=== PATIENT | female | born 1965 | race Caucasian/White ===

== ENCOUNTER → 2017-12-04 09:50 | Outpatient (REF) | payer OTHER, SELFPAY ==
[2017-12-04 14:06] LABS: Basophils % 0.6 % (0.1-2.0); Eosinophils # 0.1 K/mm3 (0.0-0.4); Eosinophils % 1.3 % (0.1-12.0); Hemoglobin 13.6 g/dL (12.2-16.2); Lymphocytes # 1.8 K/mm3 (0.7-4.5); Lymphocytes % 31.6 K/mm3 (10-50); Mean Corpuscular HGB Conc 33.1 g/dL (31.8-35.4); Mean Corpuscular Hemoglobin 28.2 pg (27.0-31.2); Mean Corpuscular Volume 85.2 fl (81-99); Mean Platelet Volume 7.6 fl (7.4-10.4); Monocytes # 0.4 K/mm3 (0.1-1.0); Monocytes % 6.7 % (1.7-9.3); Neutrophils # 3.5 K/mm3 (1.8-7.8); Neutrophils % 59.9 % (37.0-80.0); Platelet Count 294 K/mm3 (142-424); Red Blood Count 4.81 M/mm3 (4.20-5.40); Red Cell Distribution Width 12.4 % (11.5-17.5); White Blood Count 5.8 K/mm3 (4.8-10.8)
[2017-12-04 14:09] LABS: Alanine Aminotransferase 29 U/L (12-78); Albumin Level 3.7 gm/dL (3.4-5.0); Albumin/Globulin Ratio 0.9 (1.1-1.8); Alkaline Phosphatase 147 U/L (46-116); Anion Gap 9.8 mEq/L (5-15); Aspartate Amino Transferase 16 U/L (15-37); Bilirubin,Total 0.2 mg/dL (0.2-1.0); Blood Urea Nitrogen 14 mg/dL (7-18); Calcium 8.6 mg/dL (8.5-10.1); Carbon Dioxide 33 mmol/L (21.0-32.0); Chloride 106 mmol/L (98-107); Chol/HDL Ratio 4.6 (1-3.5); Cholesterol 198 mg/dL (140-200); Creatinine,Serum 0.68 mg/dL (0.55-1.02); Estimated Glomerular Filt Rate 91 ml/min (>60); GFR (African American) 110 ML/MIN (>60); Glucose 110 mg/dL (74-106); HDL Cholesterol 43 mg/dL (29-89); LDL Cholesterol 123 mg/dL (0-130); Magnesium 1.9 mg/dL (1.4-2.2); Potassium 4.8 mmoL/L (3.5-5.1); Sodium 144 mmol/L (136-145); T4 (Thyroxine) 7.3 ug/dl (4.7-13.3); Thyroid Stimulating Hormone 1.08 uIU/ml (0.358-3.740); Total Protein,Serum 7.7 gm/dL (6.4-8.2); Triglycerides 158 mg/dL (30-200); VLDL Cholesterol 32 mg/dL (0-40)
[2017-12-04 14:23] LABS: C-Reactive Protein < 0.2 mg/L (0.0-0.9)
[2017-12-04 16:25] LABS: Erythrocyte Sedimentation Rate 25 mm/hr (0-30)
[2017-12-06 12:08] LABS: Vitamin D 25 Hydroxy 27.5 ng/mL (30.0-100.0)
== END ==
LOC: LAB 09:50
PROVIDERS: Visit Provider Physician Assistant
DX: I10 Essential (primary) hypertension (principal); R25.2 Cramp and spasm
CPT/HCPCS: 80053; 80061; 82652; 83735; 84436; 84443; 85025; 85651; 86140

== ENCOUNTER → 2019-03-30 17:31 | Outpatient (CLI) | payer OTHER, SELFPAY ==
[2019-03-30 18:15] LABS: Basophils % 0.2 % (0.1-2.0); Eosinophils % 0.4 % (0.1-12.0); Hematocrit 37.3 % (37.0-47.0); Hemoglobin 12.3 g/dL (12.2-16.2); Lymphocytes % 34.2 % (10-50); Mean Corpuscular HGB Conc 32.9 g/dL (31.8-35.4); Mean Corpuscular Hemoglobin 27.2 pg (27.0-31.2); Mean Corpuscular Volume 82.7 fl (81-99); Mean Platelet Volume 7.2 fl (7.4-10.4); Monocytes # 0.3 K/mm3 (0.1-1.0); Monocytes % 5.1 % (1.7-9.3); Neutrophils # 3.5 K/mm3 (1.8-7.8); Neutrophils % 60.1 % (37.0-80.0); Platelet Count 274 K/mm3 (142-424); Red Blood Count 4.52 M/mm3 (4.20-5.40); Red Cell Distribution Width 12.5 % (11.5-17.5); White Blood Count 5.8 K/mm3 (4.8-10.8)
[2019-03-30 18:32] LABS: Erythrocyte Sedimentation Rate 43 mm/hr (0-30)
[2019-03-30 19:54] LABS: Alanine Aminotransferase 33 U/L (12-78); Albumin Level 3.6 gm/dL (3.4-5.0); Alkaline Phosphatase 147 U/L (46-116); Anion Gap 15.3 mEq/L (5-15); Aspartate Amino Transferase 45 U/L (15-37); Bilirubin,Total 0.3 mg/dL (0.2-1.0); Blood Urea Nitrogen 8 mg/dL (7-18); Calcium 8.6 mg/dL (8.5-10.1); Carbon Dioxide 28 mmol/L (21.0-32.0); Chloride 106 mmol/L (98-107); Creatinine,Serum 0.77 mg/dL (0.55-1.02); Estimated Glomerular Filt Rate 79 ml/min (>60); GFR (African American) 95 ML/MIN (>60); Globulin 3.7 gm/dl (1.3-3.2); Glucose 90 mg/dL (74-106); Potassium 4.3 mmoL/L (3.5-5.1); Sodium 145 mmol/L (136-145); Total Protein,Serum 7.3 gm/dL (6.4-8.2)
[2019-03-30 21:34] LABS: C-Reactive Protein < 0.2 mg/L (0.0-0.9)
== END ==
PROVIDERS: Visit Provider Emergency Medicine
DX: I10 Essential (primary) hypertension (principal)
CPT/HCPCS: 80053; 85025; 85651; 86140

== ENCOUNTER → 2019-06-30 13:43 | Outpatient (CLI) | payer OTHER, SELFPAY ==
[2019-06-30 14:33] LABS: Basophils % 0.2 % (0.1-2.0); Eosinophils # 0.1 K/mm3 (0.0-0.4); Eosinophils % 0.7 % (0.1-12.0); Hematocrit 37.9 % (37.0-47.0); Hemoglobin 12.2 g/dL (12.2-16.2); Lymphocytes # 1.8 K/mm3 (0.7-4.5); Lymphocytes % 20.5 % (10-50); Mean Corpuscular HGB Conc 32.1 g/dL (31.8-35.4); Mean Corpuscular Hemoglobin 28.1 pg (27.0-31.2); Mean Corpuscular Volume 87.8 fl (81-99); Mean Platelet Volume 7.1 fl (7.4-10.4); Monocytes # 0.5 K/mm3 (0.1-1.0); Monocytes % 5.6 % (1.7-9.3); Neutrophils # 6.4 K/mm3 (1.8-7.8); Platelet Count 278 K/mm3 (142-424); Red Blood Count 4.32 M/mm3 (4.20-5.40); Red Cell Distribution Width 12.5 % (11.5-17.5); White Blood Count 8.7 K/mm3 (4.8-10.8)
[2019-06-30 16:22] LABS: Alanine Aminotransferase 34 U/L (12-78); Albumin Level 3.5 gm/dL (3.4-5.0); Albumin/Globulin Ratio 0.9 (1.1-1.8); Alkaline Phosphatase 131 U/L (46-116); Anion Gap 10.1 mEq/L (5-15); Aspartate Amino Transferase 55 U/L (15-37); Bilirubin,Total 0.4 mg/dL (0.2-1.0); Blood Urea Nitrogen 8 mg/dL (7-18); Calcium 8.6 mg/dL (8.5-10.1); Carbon Dioxide 34 mmol/L (21.0-32.0); Chloride 103 mmol/L (98-107); Creatinine,Serum 0.81 mg/dL (0.55-1.02); Estimated Glomerular Filt Rate 74 ml/min (>60); GFR (African American) 89 ML/MIN (>60); Globulin 3.8 gm/dl (1.3-3.2); Glucose 89 mg/dL (74-106); Potassium 4.1 mmoL/L (3.5-5.1); Sodium 143 mmol/L (136-145); Total Protein,Serum 7.3 gm/dL (6.4-8.2)
== END ==
PROVIDERS: Visit Provider Emergency Medicine
DX: I10 Essential (primary) hypertension (principal); N63.0 Unspecified lump in unspecified breast
CPT/HCPCS: 80053; 85025

== ENCOUNTER → 2019-07-02 13:41 | Outpatient (CLI) | payer OTHER, SELFPAY ==
--- NOTE | 2019-07-02 13:43 | US_ITS ---
PROCEDURE: MM DIG MAMM BI DX W/CAD CLINICAL INDICATION: lump in right Palpable nodule or in the right breast. COMPARISON: US BREAST RT COMPLETE from 07/02/2019 TECHNIQUE: Standard CC and MLO images were obtained. R2 CAD reviewed. FINDINGS: There are no previous exams available for comparison. There is average fibroglandular tissue. There is a 2.3 x 1.9 cm well-circumscribed nodule in the upper outer aspect of the right breast. This corresponds to the palpable nodule. There are small nodes in the axilla on both sides. There is a 11 mm nodule just superior to the A4 mention palpable nodule which may correspond to a lymph node. A well-circumscribed nodular density is present in the inferior aspect of right breast in the inframammary fold region the. In addition, there is a 7 mm opacity in the inferior aspect of the right breast as seen on the MLO view. This is in the medial aspect of the right breast. There is an area of questionable architectural distortion in the central aspect of the right breast for which spot compression view is needed. On the left there is a benign-appearing nodule in the upper outer left breast at 4 mm. There are 2 asymmetric densities in the central aspect of the right left breast on the CC view. Suggest spot compression views of this region. Right breast ultrasound: At 10 o'clock there is a hypoechoic nodule measuring 1.9 x 1.4 cm corresponding to the palpable abnormality and the mammographic abnormality. This is not simply cystic having low level internal echoes with some nodular thickening anteriorly and some internal blood flow. This may represent a fibroadenoma however neoplasm is not excluded and biopsy is suggested. At 6 o'clock there is a 7 mm cyst which may correspond to the mammographic nodule near the nipple. A 4 mm cyst is present 10 o'clock. Hypoechoic nodule is present lateral to the palpable abnormality measuring 9 mm and may correspond to a lymph node IMPRESSION: Palpable nodule in the deep upper outer aspect of the right breast does not represent a simple cyst. This could represent a fibroadenoma however, neoplasm is also considered and ultrasound guided mammotome biopsy is suggested. Also recommend spot compression view of the medial nodule in the right breast, and of the possible architectural distortion centrally and the asymmetric densities in the central left breast. This can be performed at the time of biopsy BI-RAD Category: 4 Suspicious Abnormality - Biopsy Considered FOLLOW-UP: BIO Biopsy Recommended (A letter has been sent to the patient regarding results of the study.) Dictated by: Matthew Guillory MD 07/03/2019 11:48 Electronically signed by Matthew Guillory MD in [place] 07/03/2019 11:48
== END ==
PROVIDERS: PCP Emergency Medicine; Visit Provider Emergency Medicine
DX: N63.11 Unspecified lump in the right breast, upper outer quadrant (principal)
CPT/HCPCS: 76641; 77066

== ENCOUNTER → 2019-07-15 12:56 | Outpatient (CLI) | payer OTHER, SELFPAY ==
--- NOTE | 2019-07-15 | MM_ITS ---
PROCEDURE: US MAMMOTOME BX RT CLINICAL INDICATION: abnormal mamm Right breast nodule COMPARISON: MM DIG MAMM BI DX W/CAD from 07/02/2019 US BREAST RT COMPLETE from 07/02/2019 REPEAT VIEW MM from 07/15/2019 MM CLIP PLACEMENT RT from 07/15/2019 FINDINGS: Technique: Following obtaining informed consent under aseptic conditions and local anesthesia with 1 percent buffered lidocaine and deeper anesthesia with lidocaine mixed with epinephrine, 9 gauge mammotome needle was inserted under ultrasound guidance and directed along the posterior aspect of the suspicious nodule. Multiple mammotome biopsies were obtained. A non ferromagnetic clip was then placed. The patient tolerated the procedure well without evidence of immediate complication. 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 Post biopsy mammogram for clip placement shows post biopsy changes in the region of the upper outer quadrant nodule with the clip in satisfactory position. IMPRESSION: Ultrasound-guided mammotome biopsy of the right breast demonstrates invasive moderately differentiated ductal carcinoma in what appears to represent lymphoid tissue. It is concerning that this represents a lymph node with involvement of moderately differentiated ductal carcinoma. There are at least 2 other and possibly more prominent nodular densities in the right axillary region which appear to represent lymph nodes. These were demonstrated on the previous ultrasound. Examination of the remaining breast does not demonstrate any other suspicious abnormalities. Would suggest MRI of the right breast without and with contrast to look for an occult primary neoplasm within the breast which may metastasized to the lymph nodes. There were some areas of asymmetric density in the right breast but were felt to compress out on the focal spot compression views. Dictated by: Matthew Guillory MD 07/16/2019 06:03 Electronically signed by Matthew Guillory MD in [place] 07/31/2019 09:56
--- NOTE | 2019-07-15 12:59 | MM_ITS ---
PROCEDURE: REPEAT VIEW MM CLINICAL INDICATION: Additional views of questionable architectural distortion right breast and 2 asymmetric densities left breast COMPARISON: MM DIG MAMM BI DX W/CAD from 07/02/2019 TECHNIQUE: Standard CC and MLO images were obtained. R2 CAD reviewed. FINDINGS: The questioned area of architectural distortion central portion right breast is less worrisome on the additional spot compression views and appears to be secondary to heterogenic fibroglandular parenchymal densities. There is a small benign-appearing nodular density seen just deep to the nipple right breast which has smooth well-defined borders and likely is a small cyst or fibroadenoma. There are 2 tiny benign-appearing nodular densities central portion left breast with no suspicious features. These findings can be re-evaluated on six-month follow-up mammogram which should be considered to evaluate the postoperative site right breast IMPRESSION: No additional suspicious abnormality seen in either breast on the problem solving views BI-RAD Category: 3 Probably Benign Finding Short Term Follow-up FOLLOW-UP: 6M 6Month Follow-up (A letter has been sent to the patient regarding results of the study.) Dictated by: Dr. Joaquín Osman MD 07/21/2019 12:[address] Joaquín Osman MD in [place] 07/21/2019 12:39
== END ==
PROVIDERS: PCP Emergency Medicine; Visit Provider Emergency Medicine
DX: C50.411 Malignant neoplasm of upper-outer quadrant of right female breast (principal); Z17.0 Estrogen receptor positive status [ER+]
CPT/HCPCS: 19083; 77065; 77066; 88305; 88360; C2618

== ENCOUNTER 2022-02-22 18:07 | Emergency (ER) | payer OTHER, SELFPAY ==
--- NOTE | 2022-02-22 18:17 | XR_ITS ---
PROCEDURE INFORMATION: Exam: XR Chest Exam date and time: 02/22/2022 6:26 PM Age: 56 years old Clinical indication: Chest wall pain; Patient HX: Right sided chest pain, non-smoker, no chest surgeries. TECHNIQUE: Imaging protocol: XR of the chest. Views: 1 view. COMPARISON: No relevant prior studies available. FINDINGS: Lungs: Bilateral apical scarring. Mild bibasilar opacities are favored to be atelectasis. Pleural spaces: Unremarkable. No pleural effusion. No pneumothorax. Heart/Mediastinum: Unremarkable. No cardiomegaly. Bones/joints: Unremarkable. Soft tissues: Right axillary surgical clips. IMPRESSION: Mild bibasilar opacities are favored to be atelectasis. Aspiration or infection is possible in the appropriate clinical setting.
[2022-02-22 18:18] VITALS: BP 197/114; PULSE 94; RESP 17; TEMP 36.8; O2SAT 96; BMI 23.4
--- NOTE | 2022-02-22 18:23 | ECG_ITS ---
APPROVED REPORT Exam: Resting ECG HR:87 bpm ECG Measurements Heart Rate 87 AXES RI 147 P 70 QRSd 90 QRS -38 QT 364 T 60 QTc 408 Conclusion SINUS RHYTHM LEFT AXIS DEVIATION [QRS AXIS < -30] ABNORMAL ECG UNCONFIRMED REPORT Electronically signed by : Taiwo Yanes MD 02/24/2022 09:06:35
[2022-02-22 19:05] LABS: Activated Partial Thrombo Time 24.6 seconds (22.8-30.6); Alanine Aminotransferase 127 U/L (12-78); Albumin Level 4.2 g/dl (3.5-5.0); Albumin/Globulin Ratio 1.4 (1.1-1.8); Alkaline Phosphatase 109 U/L (38-126); Anion Gap 8.3 mEq/L (5-15); Aspartate Amino Transferase 74 U/L (14-36); Bilirubin,Total 0.4 mg/dl (0.2-1.3); Blood Urea Nitrogen 8 mg/dl (7-17); Calcium 8.9 mg/dl (8.4-10.2); Carbon Dioxide 38 mmol/L (22.0-30.0); Chloride 99 mmol/L (98-107); Creatinine Clearance Estimated 107 mL/min (50-200); Estimated Glomerular Filt Rate 104 ml/min (>60); GFR (African American) 126 ML/MIN (>60); Globulin 3.1 g/dL (1.3-3.2); Glucose 100 mg/dl (74-100); Potassium 3.3 mmoL/L (3.5-5.1); Prothrombin Time 10.2 seconds (10.1-12.5); Sodium 142 mmol/L (136-145); Total Protein,Serum 7.3 g/dl (6.3-8.2)
[2022-02-22 19:17] LABS: NT Pro Brain Natriuretic Pep. 75.9 pg/mL (0-125)
[2022-02-22 19:19] LABS: Troponin I < 0.01 ng/ml (0.00-0.034)
--- NOTE | 2022-02-22 19:27 | CT_ITS ---
PROCEDURE INFORMATION: Exam: CT Abdomen And Pelvis With Contrast Exam date and time: 02/22/2022 7:53 PM Age: 56 years old Clinical indication: Abdominal pain; Localized; Right upper quadrant (ruq) TECHNIQUE: Imaging protocol: Computed tomography of the abdomen and pelvis with contrast. Radiation optimization: All CT scans at this facility use at least one of these dose optimization techniques: automated exposure control; mA and/or kV adjustment per patient size (includes targeted exams where dose is matched to clinical indication); or iterative reconstruction. Contrast material: ISOVUE; Contrast volume: 75 ml; Contrast route: IV; COMPARISON: RUQ US RUQ-(ABD LTD)1ORGAN/QUAD/FU 05/17/2016 7:59 AM FINDINGS: Liver: Normal. No mass. Gallbladder and bile ducts: Gallbladder is absent. Post cholecystectomy ectasia. Pancreas: Normal. No ductal dilation. Spleen: Normal. No splenomegaly. Adrenal glands: Normal. No mass. Kidneys and ureters: Normal. No hydronephrosis. Stomach and bowel: Moderate amount of stool throughout the colon. Appendix: Unremarkable appendix. Intraperitoneal space: Unremarkable. No free air. No significant fluid collection. Vasculature: Mild atherosclerotic changes of the arteries. Lymph nodes: Unremarkable. No enlarged lymph nodes. Urinary bladder: Unremarkable as visualized. Reproductive: Status post hysterectomy. Bones/joints: Unremarkable. No acute fracture. Soft tissues: Mild right abdominal wall scarring. Other findings: Please see separate report for CT chest. Tiny fat containing umbilical hernia. Scarring overlying the right femoral vessels. IMPRESSION: No acute findings.
--- NOTE | 2022-02-22 19:27 | CT_ITS ---
PROCEDURE INFORMATION: Exam: CTA Chest With Contrast Exam date and time: 02/22/2022 7:53 PM Age: 56 years old Clinical indication: Shortness of breath TECHNIQUE: Imaging protocol: Computed tomographic angiography of the chest with contrast. 3D rendering (Not supervised by radiologist): MIP and/or 3D reconstructed images were created by the technologist. Radiation optimization: All CT scans at this facility use at least one of these dose optimization techniques: automated exposure control; mA and/or kV adjustment per patient size (includes targeted exams where dose is matched to clinical indication); or iterative reconstruction. Contrast material: ISOVUE; Contrast volume: 75 ml; Contrast route: INTRAVENOUS (IV); COMPARISON: CR XR CHEST PORTABLE 02/22/2022 6:26 PM FINDINGS: Pulmonary arteries: No pulmonary emboli. Aorta: No aortic dissection. Lungs: Bilateral apical scarring. Mild scarring and atelectasis in the lower lungs. Pleural spaces: Unremarkable. No pneumothorax. No pleural effusion. Heart: Unremarkable. No cardiomegaly. No pericardial effusion. Lymph nodes: Unremarkable. No enlarged lymph nodes. Bones/joints: Left supraclavicular sebaceous cyst is noted. Soft tissues: Right axillary surgical clips. Other findings: Please see separate report for abdomen/pelvis. Stigmata of old granulomatous disease. IMPRESSION: 1. No aortic dissection. 2. No pulmonary emboli.
--- NOTE | 2022-02-22 19:33 | HMH.EDGENADL ---
ED Disposition Clinical Impression: RUQ pain Disposition: Home, Self-Care Condition on Discharge: Good Referrals: Kevin Alejandre MD [Primary Care Provider] - - Critical Care Critical Care Time: No Attestation: On 02/22/22, the high probability of a clinically significant, sudden or life threatening deterioration of the following system(s) required my full and direct attention, intervention and personal management. The time I documented below is in addition to time spent performing reported procedures but includes the following listed in this critical care notation. Medical Decision Making - Medical Records Medical records reviewed: Yes: I reviewed the patient's medical records. - Benjamin Inquiry Pt receiving controlled substance: No Benjamin was queried for this patient: No Vital Signs: 02/22/22 18:18 Temperature 98.2 F Temperature Source Oral Pulse Rate [Left Radial] 94 H Respiratory Rate 17 Blood Pressure [Right Arm] 197/114 H Blood Pressure Mean [Right Arm] 141 02 Sat by Pulse Oximetry 96 Oxygen Delivery Method Room Air - Lab Data Lab results reviewed: Yes: I reviewed the patient's lab results. Lab Results 02/22/22 18:42: WBC 4.4 L, RBC 4.09 L, Hgb 11.9 L, Hct 35.4 L, MCV 86.6, MCH 29.2, MCHC 33.7, RDW 13.7, Plt Count 282, MPV 6.8 L, Neut % (Auto) 58.8, Lymph % (Auto) 30.7, [place] % (Auto) 6.2, Eos % (Auto) 3.6, Baso % (Auto) 0.6, Neut # (Auto) 2.6, Lymph # (Auto) 1.4, [place] # (Auto) 0.3, Eos # (Auto) 0.2, Baso # (Auto) 0.0 02/22/22 18:42: Sodium 142, Potassium 3.3 L, Chloride 99, Carbon Dioxide 38 H, Anion Gap 8.3, BUN 8, Creatinine 0.60, Estimated Creat Clear 107, Estimated GFR 104, Est GFR ( Amer) 126, Glucose 100, Calcium 8.9, Total Bilirubin 0.4, AST 74 H, ALT 127 H, Alkaline Phosphatase 109, Troponin I < 0.01, NT-Pro-B Natriuret Pep 75.9, Total Protein 7.3, Albumin 4.2, Globulin 3.1, Albumin/Globulin Ratio 1.4 02/22/22 18:42: PT 10.2, INR 0.90, APTT 24.6 Result diagrams: 02/22/22 18:42 02/22/22 18:42 Orders (Tests/Meds): ED MEDICATIONS Discontinued Medications Generic Name Dose Route Start Last Admin Trade Name Cathryn PRN Reason Stop Dose Admin Iopamidol 75 ml 02/22/22 20:15 02/22/22 20:16 Iopamidol-370 (76%);100ml Bottle IV 02/22/22 20:16 75 ml ONCE ONE Administration Sodium Chloride 50 ml 02/22/22 20:15 02/22/22 20:17 0.9 % Sodium Chloride 50 Ml Vial IV 02/22/22 20:16 50 ml ONCE ONE Administration Sodium Chloride 10 ml 02/22/22 20:15 02/22/22 20:17 Sodium Chloride 0.9% 10ml Syr (Rad Only) IV 02/22/22 20:16 10 ml ONCE ONE Administration ORDERS Category Date Time Status Troponin I Q3H Lab 02/22/22 21:30 Ordered Troponin I Q3H Lab 02/23/22 00:30 Ordered Medical Decision Narrative: Patient is a 56-year-old female with past medical history of hypertension presenting to the ED with right upper quadrant abdominal pain and bilateral lower extremity edema. Patient is awake, alert, not in acute distress. Patient is medically stable, afebrile. Patient's physical exam is remarkable for tenderness to palpation of the right upper quadrant. Differential includes but not limited to hepatitis, steatosis, cirrhosis, cholecystitis, heart failure, lower extremity edema, pulmonary edema, pulmonary embolism. This a CBC, CMP, coags was performed. Patient's LFTs are elevated which could explain patient's pain. Patient continues to have pain and shortness of breath therefore CT PE, CT abdomen pelvis is performed. Patient's lab work is remarkable for mildly elevated LFTs. CT abdomen pelvis and negative for any PEs, intra-abdominal pathology. At this point patient is stable for discharge. Patient is to follow-up with her primary care physician tomorrow. Patient also has a cardiology follow-up already scheduled. General Adult HPI - General Chief complaint: PAIN Stated complaint: ABD PAIN FEET SWELLING Time Seen by Provider: 02/22/22 19:33 Mode
[2022-02-22 20:04] LABS: Basophils % 0.6 % (0.1-2.0); Eosinophils # 0.2 K/mm3 (0.0-0.4); Eosinophils % 3.6 % (0.1-12.0); Hematocrit 35.4 % (37.0-47.0); Hemoglobin 11.9 g/dL (12.2-16.2); Lymphocytes # 1.4 K/mm3 (0.7-4.5); Lymphocytes % 30.7 % (10-50); Mean Corpuscular HGB Conc 33.7 g/dL (31.8-35.4); Mean Corpuscular Hemoglobin 29.2 pg (27.0-31.2); Mean Corpuscular Volume 86.6 fl (81-99); Mean Platelet Volume 6.8 fl (7.4-10.4); Monocytes # 0.3 K/mm3 (0.1-1.0); Monocytes % 6.2 % (1.7-9.3); Neutrophils # 2.6 K/mm3 (1.8-7.8); Neutrophils % 58.8 % (37.0-80.0); Platelet Count 282 K/mm3 (142-424); Red Blood Count 4.09 M/mm3 (4.20-5.40); Red Cell Distribution Width 13.7 % (11.5-17.5); White Blood Count 4.4 K/mm3 (4.8-10.8)
[2022-02-22 21:28] VITALS: BP 142/70; PULSE 79; RESP 19; TEMP 36.8; O2SAT 98
== END 2022-02-22 21:30 | disposition home or self-care (01) ==
PROVIDERS: Emergency Provider Emergency Medicine; PCP Emergency Medicine
DX: R10.11 Right upper quadrant pain (principal); R07.89 Other chest pain; I10 Essential (primary) hypertension; Z88.1 Allergy status to other antibiotic agents; Z88.2 Allergy status to sulfonamides; Z79.899 Other long term (current) drug therapy
CPT/HCPCS: 71045; 71275; 74177; 80053; 83880; 84484; 85025; 85610; 85730; 93005; 99284; Q9967

== ENCOUNTER → 2022-02-26 06:52 | Outpatient (CLI) | payer OTHER, SELFPAY ==
--- NOTE | 2022-02-26 06:53 | CA_ITS ---
APPROVED REPORT Exam: Pharmacologic Technologist: Tiffani Rivers, Ht: 5 ft 5 in Wt: 141 lbs BSA: 1.71 m2 HR: 63 bpm BP: 130/89 mmHg Medical History Medications: Clonidine,,,,, Gabapentin,,,,, KloNOPIN,,,,, OxYCODONE,,,,, Tizanidine,,,,, Stress Test Details Test: LEXISCAN HR Resting HR: 68 bpm Max Heart Rate (APMHR): 165.476779 bpm Max HR Achieved: 105 bpm Target HR (85% APMHR): 140.024368 bpm % of APMHR: 63.64 Recovery HR: 83 bpm BP Resting BP: 130/89 mmHg Max BP: 145/92 mmHg Recovery BP: 145.0/92.0 mmHg ECG Resting ECG: NSR Clinical Reason for Termination: Completed Protocol Exercise duration: 04:01 min Highest Stage Achieved: Stress ECG Conclusion Symptoms: None Arrhythmias/Ectopy: None ST-T Changes: <1.5mm ST Segment changes Conclusion: Non-Diagnostic Electronically signed by : Paulo Clay MD 02/26/2022 15:09:26
--- NOTE | 2022-02-26 06:53 | NM_ITS ---
APPROVED REPORT Exam: Nuclear Stress Test Indication: Chest pain, SOB, HTN Patient Location: Outpatient Stress Tech: Tiffani Worthy NM Tech:Amaya Wilson, ARRT, RT (R)(N) Ht: 5 ft 5 in Wt: 140 lbs Bra Size: 38C HR: 63 bpm BP: 130/89 mmHg BSA: 1.70 m2 TID: 63 BMI: 23.2 History: Chest pain, SOB, HTN Procedure: Patient received a 0.4 mg of intravenous Lexiscan, resting heart rate 63 bpm, resting blood pressure 130/89 mmHg, with Lexiscan maximum heart rate achived was 102 bpm which is Less than 85 % of the maximum predicted heart rate and blood pressure was 132/85 mmHg. With Lexiscan, patient denied any complaint of chest pain. Electrocardiogram Resting electrocardiogram showed sinus rhythm, with Lexiscan there is less than 1.[address] segment depression noted from the baseline EKG. The EKG portion of the Lexiscan is nondiagnostic. Cardiac Stress and Resting SPECT Images: Cardiac Stress and Resting SPECT images were obtained using technetium 99m Myoview 29.4 mCi stress and 10.26 mCi at rest. Gated SPECT analysis of segmental wall motion and calculation of the ejection fraction also done. Prone images were also obtained. Cardiac stress and rest SPECT may show uniform myocardial activity without segmental perfusion abnormality, computer derived ejection fraction is 44% with no regional wall motion abnormality, right ventricle is normal size and contractility. Visually estimated ejection fraction is approximately 50%. Conclusion: 1. The EKG portion of the Lexiscan is nondiagnostic. 2. No scintigraphic evidence of reversible ischemia seen, computer derived ejection fraction is 44%, however visually estimated ejection fraction is 50% with no regional wall motion abnormality, right ventricle is normal size and contractility. 3. Likely normal Lexiscan Myoview study. Electronically signed by : Paulo Clay MD 02/26/2022 15:12:59
--- NOTE | 2022-02-26 06:53 | CA_ITS ---
APPROVED REPORT EXAM: Comprehensive 2D, Doppler, and color-flow Echocardiogram Hot Roll Inspector: Cassidy Hughes RVT Ht: 5 ft 5 in Wt: 141lbs BSA: 1.71 BP: 142/88 mmHg Indications: CP,HTN,EDEMA,FAMILY HX HD 2D Dimensions LVOT 2.17 cm (M/F) 1.5-2.5 LA Volume 26.90 mL LA Volume Index 15.82 mL/m2 (M/F) 16-34 M-Mode Dimensions RVDd 2.86 cm (0.9-2.6) LA Diam 3.73 cm (1.9-4.0) LVDd 4.50 cm (3.5-5.7) Ao Diam 2.89 cm (2.0-3.7) LVDs 2.86 cm (3.5-5.7) IVSd 0.96 cm (0.6-1.1) PWd 0.68 cm (0.6-1.1) EF (Teich) 66.30% FS 36.40% EDV (Teich) 92.40 mL TAPSE 2.09 (<1.7) ESV (Teich) 31.10 mL LV Diastology E Decel Time 220.00 (160-240 msec) E/A Ratio 1.2 MED E' 8.80 (< 7 cm/sec) E'/MED E' Ratio 9.17 (>14) LAT E' 11.00 (<10 cm/sec) E/LAT E' Ratio 7.34 (>14) Aortic Valve AO Peak GR. 3.10 mmHg Mitral Valve MV E Max Luis. 81.00 (40-130 cm/s) MV A Velocity 67.00 (40-130 cm/s) E/A Ratio 1.20 MV Decel. Time 220.00 (160-240 ms) MV PHT 64.00 ms Pulmonary Valve PV Peak Velocity 64.00 (50-150 cm/s) Tricuspid Valve TR P. Velocity 252.00 cm/s RAP Estimate 10.00 mmHg RVSP 35.40 mmHg Left Ventricle Left atrium is mildly enlarged, left ventricle is normal size, mild concentric left ventricular hypertrophy, estimated ejection fraction 55% with no regional wall motion abnormality, diastolic parameters are inconclusive. Right Ventricle Right atrium and right ventricle mildly enlarged with normal contractility. Aortic Valve Aortic valve is minimally thickened and fibrosed there is no aortic stenosis or aortic insufficiency. Mitral Valve Mitral valve grossly normal, there is trace mitral regurgitation. Tricuspid Valve Tricuspid valve grossly normal, there is trace tricuspid regurgitation, calculated right ventricular systolic pressure 35 mmHg. Pulmonic Valve Pulmonic valve is grossly normal. Great Vessels Aortic root is normal size. Inferior vena cava is mildly dilated without significant inspiratory collapse. Pericardium No significant pericardial effusion noted. Conclusion 1. Mild biatrial normal, normal left ventricular size, estimated ejection fraction 55% with no regional wall motion abnormality, diastolic parameters are inconclusive. 2. Mildly enlarged right ventricle with normal contractility. 3. Trace mitral and tricuspid regurgitation, calculated right ventricular systolic pressure 35 mm meters of mercury. 4. No significant pericardial effusion. 5. Inferior vena cava is mildly dilated without significant inspiratory collapse. Electronically signed by : Paulo Clay MD 02/26/2022 10:10:37
--- NOTE | 2022-02-26 09:09 | HMH.ITSHM ---
Current Home Medications as stated by this patient Maureen Burk or nutrition representative. []TIZANIDINE OXYCODONE GABAPENTIN CLONIDINE CLONAZEPAM
== END ==
PROVIDERS: PCP Emergency Medicine; Visit Provider Nurse Practitioner
DX: R06.00 Dyspnea, unspecified (principal); R07.89 Other chest pain; I10 Essential (primary) hypertension
CPT/HCPCS: 78452; 93017; 93306; A9502; J2785

== ENCOUNTER → 2022-02-28 12:27 | Outpatient (CLI) | payer OTHER, SELFPAY ==
--- NOTE | 2022-02-28 12:33 | XR_ITS ---
FINAL REPORT CLINICAL HISTORY: rib pain-- no known inj FINDINGS: A single view of the chest with 3 views of the ribs were obtained. There is no acute cardiopulmonary process. No pneumothorax is identified. There are postoperative changes in the right lateral chest wall. There is a right 9th distal rib fracture. There is a possible nondisplaced fracture of the distal right 10th rib. IMPRESSION: Right 9th distal rib fracture. Possible nondisplaced right 10th distal rib fracture. Reviewed, Interpreted and Dictated by Nicola Lopez III, MD Transcribed by Latisha Ford Authenticated by Nicola Lopez III, MD on 02/28/2022 02:17:20 PM [facility]
== END ==
PROVIDERS: PCP Emergency Medicine; Visit Provider Emergency Medicine
DX: R07.81 Pleurodynia (principal)
CPT/HCPCS: 71100

== ENCOUNTER → 2022-04-17 14:24 | Outpatient (CLI) | payer OTHER, SELFPAY ==
[2022-04-17 15:00] LABS: Benzodiazepines Screen,Urine Negative ng/ml (<200)
[2022-04-17 15:01] LABS: Amphetamine/Metha Screen,Urine Negative ng/ml (<1000)
[2022-04-17 15:02] LABS: Barbiturates Screen,Urine Negative ng/ml (<200); Cannabinoid Screen,Urine Negative ng/ml (<50)
[2022-04-17 15:03] LABS: Cocaine Screen,Urine Negative ng/ml (<300)
[2022-04-17 15:04] LABS: Methadone Screen,Urine Negative ng/ml (<300); Opiate Screen,Urine Positive ng/ml (<300)
[2022-04-17 15:05] LABS: Phencyclidine Screen,Urine Negative ng/ml (<25)
== END ==
PROVIDERS: PCP Emergency Medicine; Visit Provider Emergency Medicine
DX: Z79.899 Other long term (current) drug therapy (principal)
CPT/HCPCS: 80305

== ENCOUNTER → 2022-05-16 06:24 | Outpatient (CLI) | payer OTHER, SELFPAY ==
[2022-05-15 19:52] LABS: Amphetamine/Metha Screen,Urine Negative ng/ml (<1000)
[2022-05-15 19:53] LABS: Barbiturates Screen,Urine Negative ng/ml (<200)
[2022-05-15 19:54] LABS: Benzodiazepines Screen,Urine Positive ng/ml (<200); Cannabinoid Screen,Urine Negative ng/ml (<50)
[2022-05-15 19:55] LABS: Cocaine Screen,Urine Negative ng/ml (<300); Methadone Screen,Urine Negative ng/ml (<300)
[2022-05-15 19:56] LABS: Opiate Screen,Urine Positive ng/ml (<300)
[2022-05-15 19:57] LABS: Phencyclidine Screen,Urine Negative ng/ml (<25)
== END ==
PROVIDERS: PCP Emergency Medicine; Visit Provider Emergency Medicine
DX: Z79.899 Other long term (current) drug therapy (principal)
CPT/HCPCS: 80305

== ENCOUNTER 2022-05-26 12:46 | Inpatient (IN) | payer OTHER, SELFPAY ==
[2022-05-26] VITALS (14 sets, daily range): BP systolic 104–142; BP diastolic 57–101; PULSE 50–65; RESP 12–22; TEMP 36.7–36.8; O2SAT 98–100; BMI 22.4; BMI 21.3
--- NOTE | 2022-05-26 13:14 | XR_ITS ---
PROCEDURE INFORMATION: Exam: XR Chest Exam date and time: 05/26/2022 1:33 PM Age: 56 years old Clinical indication: Other: Dizziness TECHNIQUE: Imaging protocol: Radiologic exam of the chest. Views: 1 view. COMPARISON: CR XR CHEST PORTABLE 02/22/2022 6:26 PM FINDINGS: Lungs: Focal opacification in the left mid lung which could represent mass or masslike infiltrate in further nonemergent evaluation with CT of the chest is recommended. Pleural spaces: Unremarkable. No pleural effusion. No pneumothorax. Heart/Mediastinum: Unremarkable. No cardiomegaly. Bones/joints: Unremarkable. Soft tissues: Right axillary clips. IMPRESSION: Focal opacification in the left mid lung which could represent mass or masslike infiltrate in further nonemergent evaluation with CT of the chest is recommended.
--- NOTE | 2022-05-26 13:16 | HMH.EDGENADL ---
ED Disposition Clinical Impression: Cavitary pneumonia, Sinus bradycardia, Hypokalemia Mastoiditis Qualifiers: Laterality: bilateral Qualified Code(s): H70.93 - Unspecified mastoiditis, bilateral Otitis media Qualifiers: Otitis media type: suppurative Chronicity: acute Laterality: bilateral Recurrence: not specified as recurrent Spontaneous tympanic membrane rupture: with spontaneous rupture Qualified Code(s): H66.013 - Acute suppurative otitis media with spontaneous rupture of ear drum, bilateral Anemia Qualifiers: Anemia type: unspecified type Qualified Code(s): D64.9 - Anemia, unspecified Disposition: Admitted As Inpatient Condition on Discharge: Fair - Critical Care Critical Care Time: No Attestation: On 05/26/22, the high probability of a clinically significant, sudden or life threatening deterioration of the following system(s) required my full and direct attention, intervention and personal management. The time I documented below is in addition to time spent performing reported procedures but includes the following listed in this critical care notation. Medical Decision Making - Medical Records Medical records reviewed: Yes: I reviewed the patient's medical records. MR Comment: Reviewed most recent cardiology office visit note 02/28/2022. Narrative indicates that patient had been seen at [facility] for gastrointestinal symptoms a few weeks prior and had an elevated troponin and was sent to [facility] in [place]. No cardiac cath performed. Patient had a stress test and echocardiogram done here, which were negative, but due to symptoms of ongoing angina cardiac cath was planned. Reviewed results of Myoview stress test 02/26/2022, echocardiogram 02/26/2022, CTA of chest 02/22/2022. - Benjamin Inquiry Pt receiving controlled substance: No Vital Signs: 05/26/22 12:55 05/26/22 13:00 05/26/22 13:51 Temperature 98.1 F Temperature Source Oral Pulse Rate 50 L 51 L Pulse Rate [Left Radial] 51 L Respiratory Rate 18 12 Blood Pressure 112/63 117/69 Blood Pressure [Right Arm] 104/57 L Blood Pressure Mean 79 76 Blood Pressure Mean [Right Arm] 72 02 Sat by Pulse Oximetry 98 100 99 Oxygen Delivery Method Room Air Room Air 05/26/22 14:00 05/26/22 14:31 05/26/22 15:00 Temperature Temperature Source Pulse Rate 50 L 54 L 53 L Pulse Rate [Left Radial] Respiratory Rate 13 14 17 Blood Pressure 130/84 123/91 H 128/85 Blood Pressure [Right Arm] Blood Pressure Mean 96 109 102 Blood Pressure Mean [Right Arm] 02 Sat by Pulse Oximetry 100 100 100 Oxygen Delivery Method Room Air Room Air Room Air - Lab Data Lab Results 05/26/22 13:30: WBC 8.3, RBC 3.17 L, Hgb 9.0 L, Hct 27.9 L, MCV 87.8, MCH 28.5, MCHC 32.4, RDW 13.8, Plt Count 374, MPV 7.9, Neut % (Auto) 67.4, Lymph % (Auto) 21.9, Jack % (Auto) 6.5, Eos % (Auto) 3.5, Baso % (Auto) 0.7, Neut # (Auto) 5.6, Lymph # (Auto) 1.8, Jack # (Auto) 0.5, Eos # (Auto) 0.3, Baso # (Auto) 0.1 05/26/22 13:30: Sodium 142, Potassium 2.8 L*, Chloride 106, Carbon Dioxide 31 H, Anion Gap 7.8, BUN 19 H, Creatinine 0.80, Estimated Creat Clear 79, Estimated GFR 74, Est GFR ( Amer) 90, Glucose 105 H, Calcium 8.5, Total Bilirubin < 0.1 L, AST 16, ALT 11 L, Alkaline Phosphatase 112, Troponin I < 0.01, Total Protein 6.9, Albumin 3.3 L, Globulin 3.6 H, Albumin/Globulin Ratio 0.9 L 05/26/22 13:30: NT-Pro-B Natriuret Pep 321 H 05/26/22 14:05: Stool Occult Blood Negative Result diagrams: 05/26/22 13:30 05/26/22 13:30 Orders (Tests/Meds): ED MEDICATIONS Generic Name Dose Route Start Last Admin Trade Name Freq PRN Reason Stop Dose Admin Ceftriaxone Sodium 1 gm/ 50 mls @ 100 mls/hr 05/26/22 15:45 Sodium Chloride IV 06/09/22 15:44 Q24H DANIELLE Azithromycin 500 mg/ Sodium 250 mls @ 250 mls/hr 05/26/22 15:45 Chloride IV 06/09/22 15:44 Q24H DANIELLE Clindamycin Phosphate 600 mg/ 104 mls @ 100 mls/hr 05/26/22 15:45 Sodiu
--- NOTE | 2022-05-26 13:21 | CT_ITS ---
PROCEDURE INFORMATION: Exam: CT Head Without Contrast Exam date and time: 05/26/2022 1:34 PM Age: 56 years old Clinical indication: Injury or trauma; Fall; Blunt trauma (contusions or hematomas); Additional info: Fell, hit head, headaches TECHNIQUE: Imaging protocol: Computed tomography of the head without contrast. Radiation optimization: All CT scans at this facility use at least one of these dose optimization techniques: automated exposure control; mA and/or kV adjustment per patient size (includes targeted exams where dose is matched to clinical indication); or iterative reconstruction. COMPARISON: No relevant prior studies available. FINDINGS: Brain: Normal. No hemorrhage. Unremarkable white matter. No mass effect. Cerebral ventricles: No ventriculomegaly. Paranasal sinuses: Mild mucoperiosteal thickening of the paranasal sinuses. Mastoid air cells: Opacification of the mastoid air cells with fluid in the middle ears suggestive of otomastoiditis. Bones/joints: Unremarkable. No acute fracture. Soft tissues: Unremarkable. IMPRESSION: Opacification of the mastoid air cells with fluid in the middle ears suggestive of otomastoiditis but no evidence of acute intracranial pathology.
--- NOTE | 2022-05-26 13:24 | ECG_ITS ---
APPROVED REPORT Exam: Resting ECG HR:49 bpm ECG Measurements Heart Rate 49 AXES IL 155 P 71 QRSd 97 QRS 32 QT 438 T 62 QTc 408 Conclusion SINUS BRADYCARDIA BORDERLINE ECG UNCONFIRMED REPORT Electronically signed by : Taiwo Yanes MD 05/27/2022 09:10:15
--- NOTE | 2022-05-26 13:33 | PC.NURSE ---
RAD in room for XR
--- NOTE | 2022-05-26 13:35 | PC.NURSE ---
pt to ct at this time
[2022-05-26 13:36] LABS: Basophils # 0.1 K/mm3 (0-0.2); Basophils % 0.7 % (0.1-2.0); Eosinophils # 0.3 K/mm3 (0.0-0.4); Eosinophils % 3.5 % (0.1-12.0); Hematocrit 27.9 % (37.0-47.0); Lymphocytes # 1.8 K/mm3 (0.7-4.5); Lymphocytes % 21.9 % (10-50); Mean Corpuscular HGB Conc 32.4 g/dL (31.8-35.4); Mean Corpuscular Hemoglobin 28.5 pg (27.0-31.2); Mean Corpuscular Volume 87.8 fl (81-99); Mean Platelet Volume 7.9 fl (7.4-10.4); Monocytes # 0.5 K/mm3 (0.1-1.0); Monocytes % 6.5 % (1.7-9.3); Neutrophils # 5.6 K/mm3 (1.8-7.8); Neutrophils % 67.4 % (37.0-80.0); Platelet Count 374 K/mm3 (142-424); Red Blood Count 3.17 M/mm3 (4.20-5.40); Red Cell Distribution Width 13.8 % (11.5-17.5); White Blood Count 8.3 K/mm3 (4.8-10.8)
--- NOTE | 2022-05-26 13:45 | PC.NURSE ---
pt back from CT
[2022-05-26 13:47] LABS: Alanine Aminotransferase 11 U/L (12-78); Albumin Level 3.3 g/dl (3.5-5.0); Albumin/Globulin Ratio 0.9 (1.1-1.8); Alkaline Phosphatase 112 U/L (38-126); Anion Gap 7.8 mEq/L (5-15); Aspartate Amino Transferase 16 U/L (14-36); Blood Urea Nitrogen 19 mg/dl (7-17); Calcium 8.5 mg/dl (8.4-10.2); Carbon Dioxide 31 mmol/L (22.0-30.0); Chloride 106 mmol/L (98-107); Creatinine Clearance Estimated 79 mL/min (50-200); Estimated Glomerular Filt Rate 74 ml/min (>60); GFR (African American) 90 ML/MIN (>60); Globulin 3.6 g/dL (1.3-3.2); Glucose 105 mg/dl (74-100); Sodium 142 mmol/L (136-145); Total Protein,Serum 6.9 g/dl (6.3-8.2)
[2022-05-26 13:49] LABS: Bilirubin,Total < 0.1 mg/dl (0.2-1.3); Potassium 2.8 mmoL/L (3.5-5.1)
--- NOTE | 2022-05-26 13:50 | PC.NURSE ---
Per MD request, pt was moved to cardiac room 6 d/t bradycardia
--- NOTE | 2022-05-26 13:50 | PC.NURSE ---
notified of critical potassium called by the lab
[2022-05-26 13:56] LABS: NT Pro Brain Natriuretic Pep. 321 pg/mL (0-125)
[2022-05-26 14:00] LABS: Troponin I < 0.01 ng/ml (0.00-0.034)
--- NOTE | 2022-05-26 14:11 | PC.NURSE ---
RN assisting ER MD for rectal exam for occult blood test
[2022-05-26 14:18] LABS: Occult Blood,Stool Negative (Negative)
--- NOTE | 2022-05-26 14:20 | CT_ITS ---
PROCEDURE INFORMATION: Exam: CT Chest Without Contrast; Diagnostic Exam date and time: 05/26/2022 2:31 PM Age: 56 years old Clinical indication: Mass, lump, or swelling in the chest; Additional info: Possible mass on cxr TECHNIQUE: Imaging protocol: Diagnostic computed tomography of the chest without contrast. Radiation optimization: All CT scans at this facility use at least one of these dose optimization techniques: automated exposure control; mA and/or kV adjustment per patient size (includes targeted exams where dose is matched to clinical indication); or iterative reconstruction. COMPARISON: 1. CT ANGIO CHEST PE PROTOCOL 02/22/2022 7:53 PM 2. Chest x-ray 05/26/2022. FINDINGS: Thyroid: Normal thyroid. Lungs: Fluffy airspace consolidations and nodular opacities in the left lower lobe, some of which demonstrate early cavitation. Patchy and fluffy airspace opacities/consolidations are also seen in the right upper lobe and right lower lobe, many of which demonstrate air bronchograms. 6 mm left upper lobe nodule (image 30 series 3) has enlarged as compared to the February 2022 examination. New 14 mm nodule in the left lower lobe (image 32 series 3). Stable 4 mm nodule right upper lobe (image 18 series 3). Remainder of the lungs clear. Pleural spaces: Unremarkable. No pneumothorax. No pleural effusion. Heart: Normal heart size. Punctate coronary artery calcifications. Normal pericardium. Mediastinal space: Calcified mediastinal granulomas, benign. Lymph nodes: No mediastinal, hilar, or axillary adenopathy. Vasculature: Aorta normal in course and caliber. Normal pulmonary arteries. Intraperitoneal space: No acute upper abdominal findings. Bones/joints: Old/healed right rib fractures. No acute skeletal abnormality or aggressive osseous lesion. Soft tissues: Surgical clips in the left axilla. No acute body wall soft tissue findings. Other findings: Airways patent. IMPRESSION: 1. New right upper lobe, right lower lobe, and left lower lobe nodular airspace opacifications with air bronchograms and few with early cavitation. Morphological characteristics and time frame to appearance favor infectious/inflammatory pneumonia/early cavitary pneumonia. Differential would also include underlying neoplasia. 2. Enlarging left upper lobe 6 mm nodule (previously 3 mm on February 2022). This is nonspecific, however interval enlargement is concerning for a possible neoplastic nodule. Close follow-up is advised.
--- NOTE | 2022-05-26 15:23 | PC.NURSE ---
Additional blood obtained per new MD orders. call placed to dr quigley for admission.
--- NOTE | 2022-05-26 15:24 | PC.NURSE ---
speaking to dr quigley
--- NOTE | 2022-05-26 15:39 | PC.NURSE ---
spoke to [facility]calls nurse about admission
[2022-05-26 16:01] LABS: Lactic Acid 1.1 mmol/L (0.7-2.1)
[2022-05-26 16:10] LABS: Coronavirus 19, PCR Not Detected (NotDetected); Influenza A, PCR Not Detected (NotDetected); Influenza B, PCR Not Detected (NotDetected)
--- NOTE | 2022-05-26 18:20 | PC.NURSE ---
pt has been admitted ot the second floor. She is extremely hard of hearing. reports bloody drainage from ears. i did not see any upon exam. She is alert and oriented. micheal to ambulate independently. repors increased soa with exertion.
[2022-05-27] VITALS (9 sets, daily range): BP systolic 83–158; BP diastolic 42–93; PULSE 60–87; RESP 14–20; TEMP 36.8–37.9; O2SAT 98–100; BMI 22.4
--- NOTE | 2022-05-27 05:38 | PC.NURSE ---
Pt alert and oriented x 4. Pt has c/o of back pain this shift. Medicated per MAR with adequate relief verbalized by pt. Pt still c/o of fullness in bilateral ears. Lung sounds decreased bilaterally. IV infusing per order. Monitoring pt via tele. Pt is on RA, maintaining O2 sat > 95%. PT ambulating independently to bathroom. No other complaints or needs at this time. Call light in reach.
[2022-05-27 07:34] LABS: Basophils % 0.4 % (0.1-2.0); Eosinophils # 0.3 K/mm3 (0.0-0.4); Eosinophils % 3.6 % (0.1-12.0); Hematocrit 30.8 % (37.0-47.0); Lymphocytes # 1.3 K/mm3 (0.7-4.5); Lymphocytes % 17.8 % (10-50); Mean Corpuscular HGB Conc 33.3 g/dL (31.8-35.4); Mean Corpuscular Hemoglobin 28.1 pg (27.0-31.2); Mean Corpuscular Volume 84.2 fl (81-99); Mean Platelet Volume 8.1 fl (7.4-10.4); Monocytes # 0.5 K/mm3 (0.1-1.0); Monocytes % 6.7 % (1.7-9.3); Neutrophils # 5.1 K/mm3 (1.8-7.8); Neutrophils % 71.6 % (37.0-80.0); Platelet Count 427 K/mm3 (142-424); Red Blood Count 3.66 M/mm3 (4.20-5.40); Red Cell Distribution Width 13.6 % (11.5-17.5); White Blood Count 7.1 K/mm3 (4.8-10.8)
[2022-05-27 07:35] LABS: Hemoglobin 10.2 g/dL (12.2-16.2)
[2022-05-27 07:37] LABS: Anion Gap 6.4 mEq/L (5-15); Blood Urea Nitrogen 13 mg/dl (7-17); Calcium 8.1 mg/dl (8.4-10.2); Carbon Dioxide 31 mmol/L (22.0-30.0); Chloride 108 mmol/L (98-107); Creatinine Clearance Estimated 93 mL/min (50-200); Estimated Glomerular Filt Rate 87 ml/min (>60); GFR (African American) 105 ML/MIN (>60); Glucose 94 mg/dl (74-100); Potassium 3.4 mmoL/L (3.5-5.1); Sodium 142 mmol/L (136-145)
--- NOTE | 2022-05-27 11:36 | HMH.PHAINT ---
MEDICATION RECONCILIATION COMPLETE USING LIST FROM MD OFFICE VISIT 04/2022 AND EXTERNAL PHARMACY FILL HISTORY. OF NOTE, PATIENT TOLD ER NURSE SHE TAKES GABAPENTIN, KLONOPIN, AND OXYCODONE BUT THESE WERE DISCONTINUED BY DR AN AT THE LAST OFFICE VISIT FOLLOWING A UDS AND REPORT THAT PATIENT WAS SELLING HER MEDICATIONS.
--- NOTE | 2022-05-27 11:39 | HMH.PHAVTE ---
[facility] VTE Monitoring - Patient Demographics Admission date: 05/26/22 Report Date: 05/27/22 Time: 11:39 Allergies/Adverse Reactions: Patient Allergies amoxicillin [From Augmentin] Allergy (Intermediate, Verified 05/26/22 15:41) I-RASH clavulanic acid [From Augmentin] Allergy (Intermediate, Verified 05/26/22 15:41) I-RASH Sulfa (Sulfonamide Antibiotics) Allergy (Intermediate, Verified 05/26/22 15:41) I-RASH Height: 1.7 m Weight: 64.728 kg Patient Problems: Current Active Problems (Last Updated 12/09/17 @ 10:00 by BEN Sommers) Mastoiditis (Acute) Otitis media (Acute) Cavitary pneumonia (Acute) Sinus bradycardia (Acute) Hypokalemia (Acute) Anemia (Acute) - VTE Risk Labs: VTE Related Lab Results Hgb 10.2 g/dL (12.2-16.2) L D 05/27/22 07:00 Hct 30.8 % (37.0-47.0) L 05/27/22 07:00 Plt Count 427 K/mm3 (142-424) H 05/27/22 07:00 BUN 13 mg/dl (7-17) D 05/27/22 07:00 Creatinine 0.70 mg/dl (0.52-1.04) 05/27/22 07:00 Estimated Creat Clear 93 mL/min (50-200) 05/27/22 07:00 Was VTE Risk Assessment Performed: Yes VTE Score: 3 VTE Risk Level: Low Risk Clinical Trial Participant: No - Prophylaxis VTE Prophylaxis Ordered?: Yes Types of VTE Prophylaxis: TEDS Knee High Location of Applied Device: Refused
--- NOTE | 2022-05-27 14:48 | HMH.HP ---
*Admission Date: 05/26/22 *Chief complaint: pneumonia, otomastoiditis *History of present illness: History obtained from patient and significant other. She has numerous complaints. For the past couple of months she has had been having problems with her blood pressure and heart rate dropping and chest pain and dyspnea. She was supposed to have a heart cath but has not yet had it done. She complains that she cannot hear out of either ear and has pain in her left ear. She had bleeding from her left ear a couple of days ago. She has had an associated fever. She has had a couple of falls over the past week. She hit her head. She has had headaches. She has a prior history of melanoma. Former smoker, but not for many years. Denies alcohol or drug use. above per ER narrative workup included imaging studies Chest X-Ray: IMPRESSION: Focal opacification in the left mid lung which could represent mass or masslike infiltrate in further nonemergent evaluation with CT of the chest is recommended. CT Chest: IMPRESSION: 1. New right upper lobe, right lower lobe, and left lower lobe nodular airspace opacifications with air bronchograms and few with early cavitation. Morphological characteristics and time frame to appearance favor infectious/inflammatory pneumonia/early cavitary pneumonia. Differential would also include underlying neoplasia. 2. Enlarging left upper lobe 6 mm nodule (previously 3 mm on February 2022). This is nonspecific, however interval enlargement is concerning for a possible neoplastic nodule. CT BRAIN: FINDINGS: Brain: Normal. No hemorrhage. Unremarkable white matter. No mass effect. Cerebral ventricles: No ventriculomegaly. Paranasal sinuses: Mild mucoperiosteal thickening of the paranasal sinuses. Mastoid air cells: Opacification of the mastoid air cells with fluid in the middle ears suggestive of otomastoiditis. Bones/joints: Unremarkable. No acute fracture. Soft tissues: Unremarkable. IMPRESSION: Opacification of the mastoid air cells with fluid in the middle ears suggestive of otomastoiditis but no evidence of acute intracranial pathology. Patient is unable to hear to answer questions appropriately. She does relay a 1-2 week history of dyspnea. She relays being unable to hear and ear bleeding as mentioned above. Hgb noted at 9.0 Hemocult was negative. [facility] History Medical History: Reports:: Cancer, Hypertension Denies:: Diabetes Mellitus Type 1, Diabetes Mellitus Type 2 *Have you ever received a pneumonia vaccine?: Yes *Have you received a flu vaccine this season?: Yes Laterality Cases: Right: Breast Biopsy Other Surgeries: Yes: Cancer Surgery, Cholecystectomy, Hysterectomy-Total, Skin Cancer Excision, Other Amputation: No Fractures: Yes - *Social History Smoking Status: Never smoker # Packs/Day (cigarettes): 0 Alcohol Intake: never Substance Use Type: former substance user *Occupational Status:: unemployed Housing: house Household Members: significant other *Travel in the last 8 weeks: None Family Hx:: Cancer Review of Systems - Review of Systems Review of systems:: unable to obtain Meds Home Medications Medication Instructions Recorded Confirmed Type Tizanidine HCl 4 mg PO BIDP PRN 05/26/22 05/27/22 History cloNIDine HCL [cloNIDine 0.2mg 0.2 mg PO BID 05/26/22 05/27/22 History Tablet] Allergies Allergy/AdvReac Type Severity Reaction Status Date / Time amoxicillin [From Augmentin] Allergy Intermediate I-RASH Verified 05/26/22 15:41 clavulanic acid Allergy Intermediate I-RASH Verified 05/26/22 15:41 [From Augmentin] Sulfa (Sulfonamide Allergy Intermediate I-RASH Verified 05/26/22 15:41 Antibiotics) Exam Vital signs and Labs for Last 24 Hours: Temp Pulse Resp BP Pulse Ox 100.0 F H 87 18 155/88 H 99 05/27/22 11:51 05/27/22 12:00 05/27/22 11:51 05/27/22 11:51 05/27/22 11:51
--- NOTE | 2022-05-27 18:07 | PC.NURSE ---
Patient complains of lower back pain and pain in her lungs, morphine given q4 hours prn. Lungs had fine crackles upon auscultation. VS stable and patient remains on room air. IV antibiotics given. Patient expressed concern over her boyfriend and stated he was controlling and expressed how her brother had told her of homeless shelters who helped people get a job and an apartment. Care management consult possibly needed. Patient expressed she would talk to Dr. Alejandre about situation tomorrow. No other changes or complaints.
[2022-05-28] VITALS (9 sets, daily range): BP systolic 108–164; BP diastolic 64–94; PULSE 59–80; RESP 16–20; TEMP 36.6–37.6; O2SAT 95–99; BMI 22.3; BMI 22.1
--- NOTE | 2022-05-28 04:43 | PC.NURSE ---
Pt alert and oriented x 4. Pt has c/o of pain multiple times this shift. Medicating per DEC. Pt had a temp of 100.3 at beginning of shift which was resolved with Tylenol. Pt has rested in intervals. IV infusing per order. Lung sounds diminished, with fine crackles. Pt coughs occasionally but not productive at this time. Still c/o of fullness in ears. Pt remains on RA with O2 sats > 95%. NSR on tele. Pt is ambulating to bathroom independently. No other needs at this time. Call light in reach.
[2022-05-28 06:27] LABS: Basophils # 0.1 K/mm3 (0-0.2); Basophils % 0.9 % (0.1-2.0); Eosinophils # 0.3 K/mm3 (0.0-0.4); Eosinophils % 3.1 % (0.1-12.0); Hematocrit 30.3 % (37.0-47.0); Hemoglobin 9.9 g/dL (12.2-16.2); Lymphocytes # 1.2 K/mm3 (0.7-4.5); Lymphocytes % 14.8 % (10-50); Mean Corpuscular HGB Conc 32.6 g/dL (31.8-35.4); Mean Corpuscular Hemoglobin 28.1 pg (27.0-31.2); Mean Corpuscular Volume 86.3 fl (81-99); Mean Platelet Volume 7.6 fl (7.4-10.4); Monocytes # 0.5 K/mm3 (0.1-1.0); Monocytes % 6.7 % (1.7-9.3); Neutrophils % 74.5 % (37.0-80.0); Platelet Count 463 K/mm3 (142-424); Red Blood Count 3.52 M/mm3 (4.20-5.40); Red Cell Distribution Width 13.6 % (11.5-17.5)
[2022-05-28 06:36] LABS: Chloride 106 mmol/L (98-107); Sodium 144 mmol/L (136-145)
[2022-05-28 06:37] LABS: Potassium 3.2 mmoL/L (3.5-5.1)
[2022-05-28 06:39] LABS: Alanine Aminotransferase 13 U/L (12-78); Albumin Level 3.4 g/dl (3.5-5.0); Albumin/Globulin Ratio 0.9 (1.1-1.8); Alkaline Phosphatase 105 U/L (38-126); Anion Gap 6.2 mEq/L (5-15); Aspartate Amino Transferase 17 U/L (14-36); Blood Urea Nitrogen 7 mg/dl (7-17); Carbon Dioxide 35 mmol/L (22.0-30.0); Creatinine Clearance Estimated 129 mL/min (50-200); Estimated Glomerular Filt Rate 128 ml/min (>60); GFR (African American) 155 ML/MIN (>60); Globulin 3.6 g/dL (1.3-3.2)
[2022-05-28 06:40] LABS: Calcium 8.7 mg/dl (8.4-10.2); Glucose 132 mg/dl (74-100)
[2022-05-28 06:50] LABS: Bilirubin,Total < 0.1 mg/dl (0.2-1.3)
--- NOTE | 2022-05-28 08:43 | HMH.ACPN2 ---
Internal Medicine - PN: Subj *Date: 05/29/22 *Time: 06:00 Interval history: still with dec hearing from lt ear and sob with min exertion Exam Vital signs and Labs for Last 24 Hours: Temp Pulse Resp BP Pulse Ox 98 F 70 16 126/68 96 05/28/22 03:41 05/28/22 04:00 05/28/22 03:41 05/28/22 03:41 05/28/22 03:41 Laboratory Results - last 24 hr 05/28/22 06:13: WBC 8.0, RBC 3.52 L, Hgb 9.9 L, Hct 30.3 L, MCV 86.3, MCH 28.1, MCHC 32.6, RDW 13.6, Plt Count 463 H, MPV 7.6, Neut % (Auto) 74.5, Lymph % (Auto) 14.8, [place] % (Auto) 6.7, Eos % (Auto) 3.1, Baso % (Auto) 0.9, Neut # (Auto) 6.0, Lymph # (Auto) 1.2, [place] # (Auto) 0.5, Eos # (Auto) 0.3, Baso # (Auto) 0.1 05/28/22 06:13: Sodium 144, Potassium 3.2 L, Chloride 106, Carbon Dioxide 35 H, Anion Gap 6.2, BUN 7 D, Creatinine 0.50 L D, Estimated Creat Clear 129, Estimated GFR 128, Est GFR ( Amer) 155 D, Glucose 132 H D, Calcium 8.7, Total Bilirubin < 0.1 L, AST 17, ALT 13, Alkaline Phosphatase 105, Total Protein 7.0, Albumin 3.4 L, Globulin 3.6 H, Albumin/Globulin Ratio 0.9 L I & O for Last 24 hours: Intake & Output 05/25/22 05/26/22 05/27/22 05/28/22 11:59 11:59 11:59 11:59 Intake Total 240 / 240 2780 / 2780 Balance 240 / 240 2780 / 2780 Weight 142 lb 11.2 oz 142 lb 1.6 oz - Constitutional no acute distress - *Routine HEENT Exam Head: Present: atraumatic Eye: Present: EOMI, PERRL ENT: Present: other (lt ear with blood - possible perforation ) - *Routine Neck Exam Absent: JVD - *Routine Respiratory Exam Present: decreased breath sounds - *Routine Cardiovascular Exam Present: RRR, murmur - *Routine Abdominal Exam Present: soft - *Routine Extremities Exam Absent: calf tenderness - *Routine Skin Exam Absent: erythema - *Routine Neurological Exam Present: alert, CN II-XII intact - Routine Psychiatric Exam Present: anxious Assessment and Plan (1) Cavitary pneumonia Status: Acute Category: Medical Code(s): J18.9 - Pneumonia, unspecified organism; J98.4 - Other disorders of lung (2) Anemia Status: Acute Qualifiers: Anemia type: unspecified type Qualified Code(s): D64.9 - Anemia, unspecified Category: Medical Code(s): D64.9 - Anemia, unspecified (3) Hypokalemia Status: Acute Category: Medical Code(s): E87.6 - Hypokalemia (4) Mastoiditis Status: Acute Qualifiers: Laterality: bilateral Qualified Code(s): H70.93 - Unspecified mastoiditis, bilateral Category: Medical Code(s): H70.90 - Unspecified mastoiditis, unspecified ear (5) Chest pain Status: Acute Qualifiers: Chest pain type: other chest pain Qualified Code(s): R07.89 - Other chest pain Category: Medical Code(s): R07.9 - Chest pain, unspecified (6) Dyspnea Status: Acute Qualifiers: Dyspnea type: shortness of breath Qualified Code(s): R06.02 - Shortness of breath Category: Medical Code(s): R06.00 - Dyspnea, unspecified (7) History of chemotherapy Status: Acute Category: Medical Code(s): Z92.21 - Personal history of antineoplastic chemotherapy (8) Hx of malignant melanoma Status: Acute Category: Medical Code(s): Z85.820 - Personal history of malignant melanoma of skin (9) Leg cramps Status: Acute Category: Medical Code(s): R25.2 - Cramp and spasm (10) Serous otitis media Status: Acute Qualifiers: Chronicity: acute Laterality: bilateral Recurrence: not specified as recurrent Qualified Code(s): H65.03 - Acute serous otitis media, bilateral Category: Medical Code(s): H65.90 - Unspecified nonsuppurative otitis media, unspecified ear
--- NOTE | 2022-05-28 09:23 | HMH.PULMCON ---
*Admission Date: 05/26/22 *Reason for consult:: Pneumonia *History of present illness: Ms. Burk is a 56-year-old female no significant smoking history, no prior respiratory complaints diagnosed with malignant melanoma in 2019 that spread to lymph node status posttreatment with treatment completion in February 2020 with recent port removal presented to the hospital worsening respiratory and found to be having atypical pneumonia and pulmonary was called for further management. [facility] History Medical History: Reports:: Cancer, Hypertension Denies:: Diabetes Mellitus Type 1, Diabetes Mellitus Type 2 *Have you ever received a pneumonia vaccine?: Yes *Have you received a flu vaccine this season?: Yes Laterality Cases: Right: Breast Biopsy Other Surgeries: Yes: Cancer Surgery, Cholecystectomy, Hysterectomy-Total, Skin Cancer Excision, Other Amputation: No Fractures: Yes - *Social History Smoking Status: Never smoker # Packs/Day (cigarettes): 0 Alcohol Intake: never Substance Use Type: former substance user *Occupational Status:: unemployed Housing: house Household Members: significant other *Travel in the last 8 weeks: None Family Hx:: Cancer ROS - Cons Reports anorexia, Reports fatigue - Eyes Reports blurry vision - ENT Denies difficulty swallowing - Card Reports shortness of breath - Resp Respiratory: Denies change in phlegm color, Reports chest congestion, Reports cough, Denies excessive phlegm production, Reports cough with sputum production - GI Gastrointestingal: Denies: abdominal pain - [place] Musculoskeletal: Reports muscle weakness - Psych Denies thoughts of hurting/killing others, Denies thoughts of hurting/killing yourself Meds Home Medications Medication Instructions Recorded Confirmed Type Tizanidine HCl 4 mg PO BIDP PRN 05/26/22 05/27/22 History cloNIDine HCL [cloNIDine 0.2mg 0.2 mg PO BID 05/26/22 05/27/22 History Tablet] Allergies Allergy/AdvReac Type Severity Reaction Status Date / Time amoxicillin [From Augmentin] Allergy Intermediate I-RASH Verified 05/26/22 15:41 clavulanic acid Allergy Intermediate I-RASH Verified 05/26/22 15:41 [From Augmentin] Sulfa (Sulfonamide Allergy Intermediate I-RASH Verified 05/26/22 15:41 Antibiotics) Exam - Constitutional Constitutional:: Present: no acute distress, comfortable - HENMT Exam HENMT: Present: normocephalic - Eye Exam Eyes:: Present: normal appearance both eyes and related structures - Neck Exam Neck:: Present: normal visual inspection - Respiratory Exam Respiratory:: Present: able to speak in complete sentences, no respiratory distress - Cardiovascular Exam Cardiac:: Present: regular rhythm - GI Exam GI:: Present: soft - Skin Exam Skin: Present: warm, no rash - Neurological Exam Neurological: Present: alert, awake - Extremities Exam Extremities: Present: no cyanosis, no clubbing, no edema - Psychiatric Exam Psychiatric: Present: normal affect Internal Medicine - CN: Reslt - Labs CBC & Chem 7: 05/28/22 06:13 05/28/22 06:13 Labs: Short CBC 05/28/22 Range/Units 06:13 WBC 8.0 (4.8-10.8) K/mm3 Hgb 9.9 L (12.2-16.2) g/dL Hct 30.3 L (37.0-47.0) % Plt Count 463 H (142-424) K/mm3 BMP 05/28/22 06:13 Sodium 144 Potassium 3.2 L Chloride 106 Carbon Dioxide 35 H BUN 7 D Creatinine 0.50 L D Glucose 132 H D Calcium 8.7 Liver Function 05/28/22 Range/Units 06:13 Total Bilirubin < 0.1 L (0.2-1.3) mg/dl AST 17 (14-36) U/L ALT 13 (12-78) U/L Alkaline Phosphatase 105 (38-126) U/L Albumin 3.4 L (3.5-5.0) g/dl Assessment and Plan (1) Cavitary pneumonia Status: Acute Category: Medical Code(s): J18.9 - Pneumonia, unspecified organism; J98.4 - Other disorders of lung (2) Anemia Status: Acute Qualifiers: Anemia type: unspecified type Qualified Code(s): D64.9 - Anemia, unspecified Category: Medical Code(s): D64.9
--- NOTE | 2022-05-28 11:51 | HMH.CNCARD ---
History of Present Illness Consult date: 05/28/22 Requesting physician: Kevin Alejandre Consult reason: shortness of breath Chief complaint: soa, bilateral ear pain Additional Medical History:: Past medical hx Malignant melanoma 2019- s/p treatment-completed 2019 History of present illness: 56 year old female with above past medical hx presented to ED on Saturday with complaint of bilateral ear pain, soa, generalized weakness and fever x 1 week. reports also had some bleeding from left ear. potassium was 2.8 on presentation and chest xray showed focal opacification of left lung which could represent mass. ct of chest showed increasing size of left lung nodule and possible cavitary pneumonia on left side. pulm following. Patient was evaluated in our office this year and had a normal stress test but was complaining of left sided chest pain at that time, she was scheduled for [facility] to further assess but patient cancelled study. Patient reports has intermittent sharp left sided chest pain and ongoing soa and cough. [facility] History Medical History: Reports:: Cancer, Hypertension Denies:: Diabetes Mellitus Type 1, Diabetes Mellitus Type 2 *Have you ever received a pneumonia vaccine?: Yes *Have you received a flu vaccine this season?: Yes Laterality Cases: Right: Breast Biopsy Other Surgeries: Yes: Cancer Surgery, Cholecystectomy, Hysterectomy-Total, Skin Cancer Excision, Other Amputation: No Fractures: Yes - *Social History Smoking Status: Never smoker # Packs/Day (cigarettes): 0 Alcohol Intake: never Substance Use Type: former substance user *Occupational Status:: unemployed Housing: house Household Members: significant other *Travel in the last 8 weeks: None Family Hx:: Cancer Meds Home Medications Medication Instructions Recorded Confirmed Type Tizanidine HCl 4 mg PO BIDP PRN 05/26/22 05/27/22 History cloNIDine HCL [cloNIDine 0.2mg 0.2 mg PO BID 05/26/22 05/27/22 History Tablet] Allergies Allergy/AdvReac Type Severity Reaction Status Date / Time amoxicillin [From Augmentin] Allergy Intermediate I-RASH Verified 05/26/22 15:41 clavulanic acid Allergy Intermediate I-RASH Verified 05/26/22 15:41 [From Augmentin] Sulfa (Sulfonamide Allergy Intermediate I-RASH Verified 05/26/22 15:41 Antibiotics) Exam Vital signs and Labs for Last 24 Hours: Temp Pulse Resp BP Pulse Ox 99.7 F H 70 18 132/79 98 05/28/22 11:48 05/28/22 11:48 05/28/22 11:48 05/28/22 11:48 05/28/22 11:48 Laboratory Results - last 24 hr 05/28/22 06:13: WBC 8.0, RBC 3.52 L, Hgb 9.9 L, Hct 30.3 L, MCV 86.3, MCH 28.1, MCHC 32.6, RDW 13.6, Plt Count 463 H, MPV 7.6, Neut % (Auto) 74.5, Lymph % (Auto) 14.8, [place] % (Auto) 6.7, Eos % (Auto) 3.1, Baso % (Auto) 0.9, Neut # (Auto) 6.0, Lymph # (Auto) 1.2, [place] # (Auto) 0.5, Eos # (Auto) 0.3, Baso # (Auto) 0.1 05/28/22 06:13: Sodium 144, Potassium 3.2 L, Chloride 106, Carbon Dioxide 35 H, Anion Gap 6.2, BUN 7 D, Creatinine 0.50 L D, Estimated Creat Clear 129, Estimated GFR 128, Est GFR ( Amer) 155 D, Glucose 132 H D, Calcium 8.7, Total Bilirubin < 0.1 L, AST 17, ALT 13, Alkaline Phosphatase 105, Total Protein 7.0, Albumin 3.4 L, Globulin 3.6 H, Albumin/Globulin Ratio 0.9 L I & O for Last 24 hours: Intake & Output 05/25/22 05/26/22 05/27/22 05/28/22 23:59 23:59 23:59 23:59 Intake Total 2355 / 2355 1205 / 1205 Balance 2355 / 2355 1205 / 1205 Weight 136 lb 2 oz 142 lb 11.2 oz 142 lb 1.6 oz - *Routine Respiratory Exam Present: CTA bilaterally - *Routine Cardiovascular Exam Present: RRR - *Routine Extremities Exam Absent: cyanosis, clubbing, edema Review of Systems - *Cardiovascular Reports chest pain, Reports shortness of breath Assessment and Plan (1) Cavitary pneumonia Status: Acute Category: Medical Code(s): J18.9 - Pneumonia, unspecified organism; J98.4 - Other disorders of lung (2) Anemia Status: Acute Qualifiers: Anemia type:
[2022-05-28 12:07] LABS: Lactate Dehydrogenase 148 U/L (313-618)
[2022-05-28 12:13] LABS: C-Reactive Protein 53.5 mg/L (0-4)
--- NOTE | 2022-05-28 13:25 | HMH.CONS ---
*Admission Date: 05/26/22 *Reason for consult:: Otomastoiditis *History of present illness: Ms. Burk is a 56-year-old female no significant smoking history, with a greater than 1 week history of decreased hearing. Began to have some bloody discharge from the ear canal on the left 4 days ago. She notes that the opposite side is now congested and her hearing is decreased significantly. She was having some pain and discomfort as well as the drainage this has improved slightly over the last 48 hours. She has had prior history of otitis media on the right. She denies any otologic trauma or surgery. [facility] History Medical History: Reports:: Cancer, Hypertension Denies:: Diabetes Mellitus Type 1, Diabetes Mellitus Type 2 *Have you ever received a pneumonia vaccine?: Yes *Have you received a flu vaccine this season?: Yes Laterality Cases: Right: Breast Biopsy Other Surgeries: Yes: Cancer Surgery, Cholecystectomy, Hysterectomy-Total, Skin Cancer Excision, Other Amputation: No Fractures: Yes - *Social History Smoking Status: Never smoker # Packs/Day (cigarettes): 0 Alcohol Intake: never Substance Use Type: former substance user *Occupational Status:: unemployed Housing: house Household Members: significant other *Travel in the last 8 weeks: None Family Hx:: Cancer Review of Systems - ENT Reports abnormal hearing, Reports ear discharge Meds Home Medications Medication Instructions Recorded Confirmed Type Tizanidine HCl 4 mg PO BIDP PRN 05/26/22 05/27/22 History cloNIDine HCL [cloNIDine 0.2mg 0.2 mg PO BID 05/26/22 05/27/22 History Tablet] Allergies Allergy/AdvReac Type Severity Reaction Status Date / Time amoxicillin [From Augmentin] Allergy Intermediate I-RASH Verified 05/26/22 15:41 clavulanic acid Allergy Intermediate I-RASH Verified 05/26/22 15:41 [From Augmentin] Sulfa (Sulfonamide Allergy Intermediate I-RASH Verified 05/26/22 15:41 Antibiotics) Exam Vital signs and Labs for Last 24 Hours: Temp Pulse Resp BP Pulse Ox 99.7 F H 70 18 132/79 98 05/28/22 11:48 05/28/22 11:48 05/28/22 11:48 05/28/22 11:48 05/28/22 11:48 Laboratory Results - last 24 hr 05/28/22 06:13: WBC 8.0, RBC 3.52 L, Hgb 9.9 L, Hct 30.3 L, MCV 86.3, MCH 28.1, MCHC 32.6, RDW 13.6, Plt Count 463 H, MPV 7.6, Neut % (Auto) 74.5, Lymph % (Auto) 14.8, [place] % (Auto) 6.7, Eos % (Auto) 3.1, Baso % (Auto) 0.9, Neut # (Auto) 6.0, Lymph # (Auto) 1.2, [place] # (Auto) 0.5, Eos # (Auto) 0.3, Baso # (Auto) 0.1 05/28/22 06:13: Sodium 144, Potassium 3.2 L, Chloride 106, Carbon Dioxide 35 H, Anion Gap 6.2, BUN 7 D, Creatinine 0.50 L D, Estimated Creat Clear 129, Estimated GFR 128, Est GFR ( Amer) 155 D, Glucose 132 H D, Calcium 8.7, Total Bilirubin < 0.1 L, AST 17, ALT 13, Alkaline Phosphatase 105, Total Protein 7.0, Albumin 3.4 L, Globulin 3.6 H, Albumin/Globulin Ratio 0.9 L 05/28/22 06:13: Lactate Dehydrogenase 148 L, C-Reactive Protein 53.5 H I & O for Last 24 hours: Intake & Output 05/25/22 05/26/22 05/27/22 05/28/22 23:59 23:59 23:59 23:59 Intake Total 2355 / 2355 1205 / 1205 Balance 2355 / 2355 1205 / 1205 Weight 136 lb 2 oz 142 lb 11.2 oz 142 lb 1.6 oz - *Routine HEENT Exam Eye: Present: EOMI, PERRL ENT: Present: dentition normal (Edentulous), TM's clear bilaterally (Her left tympanic membrane is bulging with evidence of old blood in the canal and mucoid discharge in the middle ear, the right side has evidence of fluid as well), other (patient has a septal perforation, looks to be longstanding with evidence of crusting but no purulence or abnormal lesions) - *Routine Neck Exam Present: trachea midline Internal Medicine - CN: Reslt - Labs CBC & Chem 7: 05/28/22 06:13 05/28/22 06:13 Labs: Short CBC 05/28/22 Range/Units 06:13 WBC 8.0 (4.8-10.8) K/mm3 Hgb 9.9 L (12.2-16.2) g/dL Hct 30.3 L (37.0-47.0) % Plt Count 463 H (142-424) K/mm3 BMP 05/28/22 06:13 Sodium
--- NOTE | 2022-05-28 14:36 | PC.NURSE ---
rounded on patient. educated on nose spray and ear drops and assisted patient with administration. no other concerns or questions noted. stated she planned on washing off in a little bit. no needs voiced. encouraged her to ring out with any needs or questions
--- NOTE | 2022-05-28 16:11 | PC.NURSE ---
SHE IS AOX4, ABLE TO MAKE NEEDS KNOWN TO STAFF, VERY HARD OF HEARING R/ EAR INFECTIONS BILATERALLY. SHE IS TOLERATING RA WELL. DENIES SOB. HAS REQUESTED PAIN MEDICATION X2 FOR BACK PAIN, MORPHINE GIVEN PER MAR WITH GOOD EFFECTIVENESS NOTED.
[2022-05-29] VITALS (8 sets, daily range): BP systolic 124–155; BP diastolic 73–94; PULSE 50–70; RESP 17–20; TEMP 36.6–36.9; O2SAT 95–99; BMI 21.4
--- NOTE | 2022-05-29 07:02 | PC.NURSE ---
No acute changes. Pt continues to c/o pain in her lower back. PRN pain medication administered per DEC. Pt states relief. Lung sounds clear. Call light within reach.
[2022-05-29 07:05] LABS: Basophils % 0.6 % (0.1-2.0); Eosinophils # 0.3 K/mm3 (0.0-0.4); Eosinophils % 6.3 % (0.1-12.0); Hematocrit 31.2 % (37.0-47.0); Lymphocytes # 1.9 K/mm3 (0.7-4.5); Lymphocytes % 36.2 % (10-50); Mean Corpuscular HGB Conc 32.1 g/dL (31.8-35.4); Mean Corpuscular Hemoglobin 27.7 pg (27.0-31.2); Mean Corpuscular Volume 86.4 fl (81-99); Mean Platelet Volume 7.4 fl (7.4-10.4); Monocytes # 0.3 K/mm3 (0.1-1.0); Neutrophils # 2.6 K/mm3 (1.8-7.8); Neutrophils % 50.9 % (37.0-80.0); Platelet Count 464 K/mm3 (142-424); Red Blood Count 3.62 M/mm3 (4.20-5.40); Red Cell Distribution Width 13.5 % (11.5-17.5); White Blood Count 5.2 K/mm3 (4.8-10.8)
[2022-05-29 07:10] LABS: Anion Gap 6.3 mEq/L (5-15); Blood Urea Nitrogen 5 mg/dl (7-17); Calcium 8.5 mg/dl (8.4-10.2); Carbon Dioxide 34 mmol/L (22.0-30.0); Chloride 106 mmol/L (98-107); Creatinine Clearance Estimated 124 mL/min (50-200); Estimated Glomerular Filt Rate 128 ml/min (>60); GFR (African American) 155 ML/MIN (>60); Glucose 102 mg/dl (74-100); Potassium 3.3 mmoL/L (3.5-5.1); Sodium 143 mmol/L (136-145)
--- NOTE | 2022-05-29 08:56 | HMH.PULMPN ---
Internal Medicine - PN: Subj *Date: 05/29/22 *Time: 10:49 Interval history: No acute respiratory vents overnight. Patient continued to remain on room air. Exam - Constitutional Constitutional:: Present: no acute distress, comfortable - HENMT Exam HENMT: Present: normocephalic, atraumatic - Eye Exam Eyes:: Present: normal appearance both eyes and related structures, eyelids normal, normal conjunctiva - Neck Exam Neck:: Present: normal visual inspection, thyroid normal, trachea midline - Respiratory Exam Respiratory:: Present: able to speak in complete sentences, normal respiratory effort. Absent: crackles, wheezing - Cardiovascular Exam Cardiac:: Present: S1, S2, dyspnea on exertion. Absent: chest pain, palpitations - GI Exam GI:: Present: soft, no hepatosplenomegaly. Absent: rigid - Skin Exam Skin: Present: warm, no rash - Neurological Exam Neurological: Present: alert, awake, normal cognition - Extremities Exam Extremities: Present: no cyanosis, no clubbing, no edema Assessment and Plan (1) Cavitary pneumonia Status: Acute Category: Medical Code(s): J18.9 - Pneumonia, unspecified organism; J98.4 - Other disorders of lung (2) Anemia Status: Acute Qualifiers: Anemia type: unspecified type Qualified Code(s): D64.9 - Anemia, unspecified Category: Medical Code(s): D64.9 - Anemia, unspecified (3) Hypokalemia Status: Acute Category: Medical Code(s): E87.6 - Hypokalemia (4) Mastoiditis Status: Acute Qualifiers: Laterality: bilateral Qualified Code(s): H70.93 - Unspecified mastoiditis, bilateral Category: Medical Code(s): H70.90 - Unspecified mastoiditis, unspecified ear (5) Chest pain Status: Acute Qualifiers: Chest pain type: other chest pain Qualified Code(s): R07.89 - Other chest pain Category: Medical Code(s): R07.9 - Chest pain, unspecified (6) Dyspnea Status: Acute Qualifiers: Dyspnea type: shortness of breath Qualified Code(s): R06.02 - Shortness of breath Category: Medical Code(s): R06.00 - Dyspnea, unspecified (7) History of chemotherapy Status: Acute Category: Medical Code(s): Z92.21 - Personal history of antineoplastic chemotherapy (8) Hx of malignant melanoma Status: Acute Category: Medical Code(s): Z85.820 - Personal history of malignant melanoma of skin (9) Leg cramps Status: Acute Category: Medical Code(s): R25.2 - Cramp and spasm (10) Serous otitis media Status: Acute Qualifiers: Chronicity: acute Laterality: bilateral Recurrence: not specified as recurrent Qualified Code(s): H65.03 - Acute serous otitis media, bilateral Category: Medical Code(s): H65.90 - Unspecified nonsuppurative otitis media, unspecified ear - Assessment and plan all Dx Assessment and Plan for all problems:: #Atypical pneumonia/cavitary pneumonia #History of malignant melanoma: #Mediastinal and Hlar adenopathy No significant smoking history. No prior respiratory complaints. Not in respiratory distress. On room air. History of malignant melanoma status post treatment completion in February 2022. On room air. No evidence of leukocytosis. Labs reviewed, significant hypokalemia 2.8 at admission, improving, 3.2 today. BNP 321 on admission. On my interpretation, CT on this admission showed prominent left lower lobe dense consolidation/round mass like lesion along with right middle lobe airspace disease with possible early cavitation/ir bronchogram and surrounding groundglass opacities. Noted lesions were not found in his patient most recent CT chest from February 2022. Patient also noted to have left upper lobe lesion that increase in size from prior. CT also noted to have small carinal and left hilar lymphadenopathy. Noted lesions can well be from infectious however the possibility of malignancy recurrence cannot be completely ruled out. Interval update: No acute respiratory distress events overn
--- NOTE | 2022-05-29 09:23 | HMH.ACPN2 ---
Internal Medicine - PN: Subj *Date: 05/29/22 *Time: 09:23 Exam Vital signs and Labs for Last 24 Hours: Temp Pulse Resp BP Pulse Ox 98.5 F 68 17 155/94 H 97 05/29/22 08:00 05/29/22 08:00 05/29/22 08:00 05/29/22 08:00 05/29/22 08:00 Laboratory Results - last 24 hr 05/28/22 06:13: Lactate Dehydrogenase 148 L, C-Reactive Protein 53.5 H 05/29/22 06:38: WBC 5.2 D, RBC 3.62 L, Hgb 10.0 L, Hct 31.2 L, MCV 86.4, MCH 27.7, MCHC 32.1, RDW 13.5, Plt Count 464 H, MPV 7.4, Neut % (Auto) 50.9, Lymph % (Auto) 36.2, [place] % (Auto) 6.0, Eos % (Auto) 6.3, Baso % (Auto) 0.6, Neut # (Auto) 2.6, Lymph # (Auto) 1.9, [place] # (Auto) 0.3, Eos # (Auto) 0.3, Baso # (Auto) 0.0 05/29/22 06:38: Sodium 143, Potassium 3.3 L, Chloride 106, Carbon Dioxide 34 H, Anion Gap 6.3, BUN 5 L D, Creatinine 0.50 L, Estimated Creat Clear 124, Estimated GFR 128, Est GFR ( Amer) 155, Glucose 102 H, Calcium 8.5 I & O for Last 24 hours: Intake & Output 05/26/22 05/27/22 05/28/22 05/29/22 23:59 23:59 23:59 23:59 Intake Total 2355 / 2355 3129 / 3129 582 / 582 Balance 2355 / 2355 3129 / 3129 582 / 582 Weight 61.745 kg 64.728 kg 64 kg 61.915 kg Microbiology Reports for the Last 24 Hours: Microbiology 05/26/22 15:58 Blood Blood Culture - Preliminary NO GROWTH AFTER 48 HOURS 05/26/22 15:46 Blood Blood Culture - Preliminary NO GROWTH AFTER 48 HOURS Assessment and Plan (1) Cavitary pneumonia Status: Acute Category: Medical Code(s): J18.9 - Pneumonia, unspecified organism; J98.4 - Other disorders of lung (2) Anemia Status: Acute Qualifiers: Anemia type: unspecified type Qualified Code(s): D64.9 - Anemia, unspecified Category: Medical Code(s): D64.9 - Anemia, unspecified (3) Hypokalemia Status: Acute Category: Medical Code(s): E87.6 - Hypokalemia (4) Mastoiditis Status: Acute Qualifiers: Laterality: bilateral Qualified Code(s): H70.93 - Unspecified mastoiditis, bilateral Category: Medical Code(s): H70.90 - Unspecified mastoiditis, unspecified ear (5) Chest pain Status: Acute Qualifiers: Chest pain type: other chest pain Qualified Code(s): R07.89 - Other chest pain Category: Medical Code(s): R07.9 - Chest pain, unspecified (6) Dyspnea Status: Acute Qualifiers: Dyspnea type: shortness of breath Qualified Code(s): R06.02 - Shortness of breath Category: Medical Code(s): R06.00 - Dyspnea, unspecified (7) History of chemotherapy Status: Acute Category: Medical Code(s): Z92.21 - Personal history of antineoplastic chemotherapy (8) Hx of malignant melanoma Status: Acute Category: Medical Code(s): Z85.820 - Personal history of malignant melanoma of skin (9) Leg cramps Status: Acute Category: Medical Code(s): R25.2 - Cramp and spasm (10) Serous otitis media Status: Acute Qualifiers: Chronicity: acute Laterality: bilateral Recurrence: not specified as recurrent Qualified Code(s): H65.03 - Acute serous otitis media, bilateral Category: Medical Code(s): H65.90 - Unspecified nonsuppurative otitis media, unspecified ear The patient's infection will respond to the chosen ABx?: Yes Is the patient receiving the right drug, dose, and route?: Yes Could a more targeted ABx be ordered?: No
--- NOTE | 2022-05-29 10:00 | SW/DCPLANNER ---
I spoke with this patient regarding plans once medically stable for discharge. Patient stated that she resides at home with one of her friends. Patient plans to return back home once medically stable for discharge. Patient also stated that she will have transportation home. Patient may discharge later this afternoon.
--- NOTE | 2022-05-29 11:23 | HMH.ACPN2 ---
Internal Medicine - PN: Subj *Date: 05/29/22 *Time: 18:58 Interval history: 56-year-old female patient sitting up in bed resting quietly, she reports less shortness of breath today than yesterday, but does report I just do not feel well . She does state I think has been just 1 more day in the hospital. Room air oxygenation 97% and she does have a nonproductive cough Exam Vital signs and Labs for Last 24 Hours: Temp Pulse Resp BP Pulse Ox 98.2 F 55 L 17 139/78 96 05/29/22 11:19 05/29/22 11:19 05/29/22 11:19 05/29/22 11:19 05/29/22 11:19 Laboratory Results - last 24 hr 05/28/22 06:13: Lactate Dehydrogenase 148 L, C-Reactive Protein 53.5 H 05/29/22 06:38: WBC 5.2 D, RBC 3.62 L, Hgb 10.0 L, Hct 31.2 L, MCV 86.4, MCH 27.7, MCHC 32.1, RDW 13.5, Plt Count 464 H, MPV 7.4, Neut % (Auto) 50.9, Lymph % (Auto) 36.2, [place] % (Auto) 6.0, Eos % (Auto) 6.3, Baso % (Auto) 0.6, Neut # (Auto) 2.6, Lymph # (Auto) 1.9, [place] # (Auto) 0.3, Eos # (Auto) 0.3, Baso # (Auto) 0.0 05/29/22 06:38: Sodium 143, Potassium 3.3 L, Chloride 106, Carbon Dioxide 34 H, Anion Gap 6.3, BUN 5 L D, Creatinine 0.50 L, Estimated Creat Clear 124, Estimated GFR 128, Est GFR ( Amer) 155, Glucose 102 H, Calcium 8.5 I & O for Last 24 hours: Intake & Output 05/26/22 05/27/22 05/28/22 05/29/22 23:59 23:59 23:59 23:59 Intake Total 2355 / 2355 3129 / 3129 582 / 582 Balance 2355 / 2355 3129 / 3129 582 / 582 Weight 136 lb 2 oz 142 lb 11.2 oz 141 lb 1.533 oz 136 lb 8 oz Microbiology Reports for the Last 24 Hours: Microbiology 05/26/22 15:58 Blood Blood Culture - Preliminary NO GROWTH AFTER 48 HOURS 05/26/22 15:46 Blood Blood Culture - Preliminary NO GROWTH AFTER 48 HOURS - Constitutional no acute distress, thin - *Routine HEENT Exam Head: Present: normocephalic Eye: Present: EOMI ENT: Present: mucous membranes moist - *Routine Neck Exam Present: trachea midline. Absent: tracheal deviation - *Routine Respiratory Exam Present: rhonchi. Absent: accessory muscle use - *Routine Cardiovascular Exam Present: RRR - *Routine Abdominal Exam Present: soft, normoactive bowel sounds. Absent: tenderness, firm - *Routine Extremities Exam Present: full ROM, pulses intact. Absent: cyanosis, clubbing, edema - *Routine Skin Exam Present: intact, dry. Absent: cyanosis, erythema - *Routine Neurological Exam Present: alert, oriented X3. Absent: motor deficit, altered mental status - Routine Psychiatric Exam Present: normal affect, normal thought process. Absent: auditory hallucinations Assessment and Plan (1) Cavitary pneumonia Status: Acute Category: Medical Code(s): J18.9 - Pneumonia, unspecified organism; J98.4 - Other disorders of lung (2) Anemia Status: Acute Qualifiers: Anemia type: unspecified type Qualified Code(s): D64.9 - Anemia, unspecified Category: Medical Code(s): D64.9 - Anemia, unspecified (3) Hypokalemia Status: Acute Category: Medical Code(s): E87.6 - Hypokalemia (4) Mastoiditis Status: Acute Qualifiers: Laterality: bilateral Qualified Code(s): H70.93 - Unspecified mastoiditis, bilateral Category: Medical Code(s): H70.90 - Unspecified mastoiditis, unspecified ear (5) Chest pain Status: Acute Qualifiers: Chest pain type: other chest pain Qualified Code(s): R07.89 - Other chest pain Category: Medical Code(s): R07.9 - Chest pain, unspecified (6) Dyspnea Status: Acute Qualifiers: Dyspnea type: shortness of breath Qualified Code(s): R06.02 - Shortness of breath Category: Medical Code(s): R06.00 - Dyspnea, unspecified (7) History of chemotherapy Status: Acute Category: Medical Code(s): Z92.21 - Personal history of antineoplastic chemotherapy (8) Hx of malignant melanoma Status: Acute Category: Medical Code(s): Z85.820 - Personal history of malign
--- NOTE | 2022-05-29 14:28 | PC.NURSE ---
rounded on patient. patient didn't have any questions. she is hopeful that her hearing will improve as the meds take affect. she says it has been very frustrating when it comes to hearing. did also note some dizziness so encouraged her to continue and use call light when she needed to get up. no needs voiced at this time. encouraged her to ring out as needed.
--- NOTE | 2022-05-29 17:56 | PC.NURSE ---
PT HAS BEEN PLEASANT T/O SHIFT WITH ONE TEARFUL EPISODE AROUND NOON, PT WAS WORRIED ABOUT HER LIVING SITUATION AT HOME AND LOOKING FOR A NEW HOUSE. C/O OF LOWER BACK PAIN, RELIEVED BY PRESCRIBED PAIN MEDS. ALERT X4, RA TOLERATING WELL. PT HAS BEEN DIZZY, ASSIST X1 WHEN AMBULATING. FINE CRACKLES HEARD AT BASES OF BILAT LUNGS. CB AND P[ERSONAL ITEMS WITHIN REACH, NO OTHER QUESTIONS OR CONCERNS FROM PT
[2022-05-30] VITALS: BP 143/90; PULSE 50; PULSE 59; RESP 20; TEMP 36.9; O2SAT 97
[2022-05-30 04:00] VITALS: BP 143/85; PULSE 50; PULSE 60; RESP 20; TEMP 36.7; O2SAT 97
[2022-05-30 05:00] VITALS: BMI 21.9
--- NOTE | 2022-05-30 05:03 | PC.NURSE ---
Pt has c/o lower medial back pain multiple times t/o shift. PRN pain medication administered per DEC. Pt states favorable results. Call light within reach.
[2022-05-30 07:05] LABS: Chloride 107 mmol/L (98-107); Potassium 3.7 mmoL/L (3.5-5.1); Sodium 141 mmol/L (136-145)
[2022-05-30 07:08] LABS: Anion Gap 7.7 mEq/L (5-15); Blood Urea Nitrogen 10 mg/dl (7-17); Calcium 8.9 mg/dl (8.4-10.2); Carbon Dioxide 30 mmol/L (22.0-30.0); Creatinine Clearance Estimated 159 mL/min (50-200); Estimated Glomerular Filt Rate 166 ml/min (>60); GFR (African American) 201 ML/MIN (>60); Glucose 183 mg/dl (74-100); Hematocrit 31.5 % (37.0-47.0); Hemoglobin 10.2 g/dL (12.2-16.2); Lymphocytes # 0.8 K/mm3 (0.7-4.5); Lymphocytes % 5.5 % (10-50); Mean Corpuscular HGB Conc 32.3 g/dL (31.8-35.4); Mean Corpuscular Hemoglobin 27.2 pg (27.0-31.2); Mean Corpuscular Volume 84.2 fl (81-99); Mean Platelet Volume 7.4 fl (7.4-10.4); Monocytes # 0.3 K/mm3 (0.1-1.0); Neutrophils % 92.4 % (37.0-80.0); Platelet Count 536 K/mm3 (142-424); Red Blood Count 3.73 M/mm3 (4.20-5.40); Red Cell Distribution Width 13.4 % (11.5-17.5); White Blood Count 14.1 K/mm3 (4.8-10.8)
[2022-05-30 07:10] LABS: MANUAL DIFFERENTIAL MANUAL DIFFERENTIAL (MANUAL DIFF)
[2022-05-30 07:39] LABS: Lymphocytes % 7 % (10-50); Monocytes % 3 % (2-9); Neutrophils % 90 % (42-76); Total Cells Counted 100
[2022-05-30 07:40] LABS: Platelet Estimate Normal; RBC Morphology Normal
[2022-05-30 08:00] VITALS: BP 142/95; PULSE 60; PULSE 77; RESP 20; TEMP 36.8; O2SAT 98
--- NOTE | 2022-05-30 09:10 | HMH.PULMPN ---
Internal Medicine - PN: Subj *Date: 05/30/22 *Time: 10:44 Interval history: No acute respiratory vents overnight. Denies any new complaints. Dyspnea with exertion. Cough with no productive phlegm. Improving. Exam - Constitutional Constitutional:: Present: no acute distress, comfortable - HENMT Exam HENMT: Present: normocephalic, moist mucous membranes - Eye Exam Eyes:: Present: normal appearance both eyes and related structures, eyelids normal, normal conjunctiva - Neck Exam Neck:: Present: normal visual inspection, thyroid normal, no lymphadenopathy - Respiratory Exam Respiratory:: Present: able to speak in complete sentences, no respiratory distress. Absent: crackles, wheezing - Cardiovascular Exam Cardiac:: Present: S1, S2. Absent: chest pain - GI Exam GI:: Present: soft, no hepatosplenomegaly, no tenderness - Skin Exam Skin: Present: warm, no rash - Neurological Exam Neurological: Present: alert, awake, normal cognition - Extremities Exam Extremities: Present: no cyanosis, no clubbing, no edema - Psychiatric Exam Psychiatric: Present: normal affect, appearance grossly normal, no homicidal ideation, no suicidal ideation Assessment and Plan (1) Cavitary pneumonia Status: Acute Category: Medical Code(s): J18.9 - Pneumonia, unspecified organism; J98.4 - Other disorders of lung (2) Anemia Status: Acute Qualifiers: Anemia type: unspecified type Qualified Code(s): D64.9 - Anemia, unspecified Category: Medical Code(s): D64.9 - Anemia, unspecified (3) Hypokalemia Status: Acute Category: Medical Code(s): E87.6 - Hypokalemia (4) Mastoiditis Status: Acute Qualifiers: Laterality: bilateral Qualified Code(s): H70.93 - Unspecified mastoiditis, bilateral Category: Medical Code(s): H70.90 - Unspecified mastoiditis, unspecified ear (5) Chest pain Status: Acute Qualifiers: Chest pain type: other chest pain Qualified Code(s): R07.89 - Other chest pain Category: Medical Code(s): R07.9 - Chest pain, unspecified (6) Dyspnea Status: Acute Qualifiers: Dyspnea type: shortness of breath Qualified Code(s): R06.02 - Shortness of breath Category: Medical Code(s): R06.00 - Dyspnea, unspecified (7) History of chemotherapy Status: Acute Category: Medical Code(s): Z92.21 - Personal history of antineoplastic chemotherapy (8) Hx of malignant melanoma Status: Acute Category: Medical Code(s): Z85.820 - Personal history of malignant melanoma of skin (9) Leg cramps Status: Acute Category: Medical Code(s): R25.2 - Cramp and spasm (10) Serous otitis media Status: Acute Qualifiers: Chronicity: acute Laterality: bilateral Recurrence: not specified as recurrent Qualified Code(s): H65.03 - Acute serous otitis media, bilateral Category: Medical Code(s): H65.90 - Unspecified nonsuppurative otitis media, unspecified ear - Assessment and plan all Dx Assessment and Plan for all problems:: #Atypical pneumonia/cavitary pneumonia #History of malignant melanoma: #Mediastinal and Hlar adenopathy No significant smoking history. No prior respiratory complaints. Not in respiratory distress. On room air. History of malignant melanoma status post treatment completion in February 2022. On room air. No evidence of leukocytosis. Labs reviewed, significant hypokalemia 2.8 at admission, improving, 3.2 today. BNP 321 on admission. On my interpretation, CT on this admission showed prominent left lower lobe dense consolidation/round mass like lesion along with right middle lobe airspace disease with possible early cavitation/ir bronchogram and surrounding groundglass opacities. Noted lesions were not found in his patient most recent CT chest from February 2022. Patient also noted to have left upper lobe lesion that increase in size from prior. CT also noted to have small carinal and left hilar lymphadenopathy. Noted lesions can we
--- NOTE | 2022-05-30 09:11 | XR_ITS ---
FINAL REPORT CLINICAL HISTORY: PNM COMPARISON: 05/26/2022 FINDINGS: SINGLE-VIEW CHEST The heart size is normal. The mediastinum is normal. There are improved left lung opacities, may represent improving pneumonia. There are mild persistent left mid lung opacities. Postoperative change is seen in the right axilla. There is no pneumothorax. IMPRESSION: Persistent but improved opacities in the left lung, may represent improving pneumonia. Reviewed, Interpreted and Dictated by Nicola Lopez III, MD Transcribed by Latisha Ford Authenticated and [facility]
--- NOTE | 2022-05-30 09:23 | HMH.DCSUM ---
General - General Admission date:: 05/26/22 Discharge date: 05/30/22 HPI HPI: History obtained from patient and significant other. She has numerous complaints. For the past couple of months she has had been having problems with her blood pressure and heart rate dropping and chest pain and dyspnea. She was supposed to have a heart cath but has not yet had it done. She complains that she cannot hear out of either ear and has pain in her left ear. She had bleeding from her left ear a couple of days ago. She has had an associated fever. She has had a couple of falls over the past week. She hit her head. She has had headaches. She has a prior history of melanoma. Former smoker, but not for many years. Denies alcohol or drug use. above per ER narrative workup included imaging studies Hospital Course Hospital Course: History obtained from patient and significant other. She has numerous complaints. For the past couple of months she has had been having problems with her blood pressure and heart rate dropping and chest pain and dyspnea. She was supposed to have a heart cath but has not yet had it done. She complains that she cannot hear out of either ear and has pain in her left ear. She had bleeding from her left ear a couple of days ago. She has had an associated fever. She has had a couple of falls over the past week. She hit her head. She has had headaches. She has a prior history of melanoma. Former smoker, but not for many years. Denies alcohol or drug use. Chest X-Ray: IMPRESSION: Focal opacification in the left mid lung which could represent mass or masslike infiltrate in further nonemergent evaluation with CT of the chest is recommended. CT Chest: IMPRESSION: 1. New right upper lobe, right lower lobe, and left lower lobe nodular airspace opacifications with air bronchograms and few with early cavitation. Morphological characteristics and time frame to appearance favor infectious/inflammatory pneumonia/early cavitary pneumonia. Differential would also include underlying neoplasia. 2. Enlarging left upper lobe 6 mm nodule (previously 3 mm on February 2022). This is nonspecific, however interval enlargement is concerning for a possible neoplastic nodule. CT BRAIN: FINDINGS: Brain: Normal. No hemorrhage. Unremarkable white matter. No mass effect. Cerebral ventricles: No ventriculomegaly. Paranasal sinuses: Mild mucoperiosteal thickening of the paranasal sinuses. Mastoid air cells: Opacification of the mastoid air cells with fluid in the middle ears suggestive of otomastoiditis. Bones/joints: Unremarkable. No acute fracture. Soft tissues: Unremarkable. IMPRESSION: Opacification of the mastoid air cells with fluid in the middle ears suggestive of otomastoiditis but no evidence of acute intracranial pathology. Patient is unable to hear to answer questions appropriately. She does relay a 1-2 week history of dyspnea. She relays being unable to hear and ear bleeding as mentioned above. Hgb noted at 9.0 Hemocult was negative. ENT has seen and recommends: IV antibiotic use at this time. Would recommend steroid taper as well. I will prescribe antibiotic drops for the left ear. Need to arrange follow-up with our office in 2 weeks. Will recommend oral Augmentin upon discharge along with Ciprodex drops. Pulmonary has seen and recommends: Assessment and Plan for all problems:: #Atypical pneumonia/cavitary pneumonia #History of malignant melanoma: #Mediastinal and Hlar adenopathy No significant smoking history. No prior respiratory complaints. Not in respiratory distress. On room air. History of malignant melanoma status post treatment completion in February 2022. On room air. No evidence of leukocytosis. Labs reviewed, significant hypokalemia 2.8 at admission, improving, 3.2 today. BNP 321 on admission. On my interpretation, CT
[2022-05-30 11:44] VITALS: BP 152/85; PULSE 55; TEMP 36.9; O2SAT 97
[2022-05-30 12:00] VITALS: PULSE 55
[2022-06-02 00:07] LABS: Aspergillus flavus Negative (Neg:<1:1); Aspergillus fumigatus Negative (Neg:<1:1); Aspergillus niger Negative (Neg:<1:1); Blastomyces Antibody Negative (Neg:<1:1)
== END 2022-05-30 16:07 | disposition home or self-care (01) | DRG 195 ==
LOC: ER 12:53 → 2ND 15:41
PROVIDERS: Internal Medicine Pulmonary Disease; Nurse Practitioner Family; Admitting Provider Family Medicine; Emergency Provider Emergency Medicine; PCP Emergency Medicine; Visit Provider Emergency Medicine
DX: J18.9 Pneumonia, unspecified organism (principal); H70.90 Unspecified mastoiditis, unspecified ear; Z85.820 Personal history of malignant melanoma of skin; D64.9 Anemia, unspecified; E87.6 Hypokalemia; H65.03 Acute serous otitis media, bilateral; R07.89 Other chest pain; Z87.891 Personal history of nicotine dependence
CPT/HCPCS: 36415; 70450; 71045; 71250; 80048; 80053; 82272; 83605; 83615; 83880; 84484; 85007; 85025; 86140; 86606; 86612; 87040; 93005; 99285; C9803; G0328; J0456; J0696; U0003; U0005

== ENCOUNTER 2022-06-01 10:58 | Inpatient (IN) | payer OTHER, SELFPAY ==
[2022-06-01] VITALS (16 sets, daily range): BP systolic 70–163; BP diastolic 36–96; PULSE 36–60; RESP 12–22; TEMP 36.6–37.1; O2SAT 95–100; BMI 24.2; BMI 21.9
--- NOTE | 2022-06-01 10:58 | ECG_ITS ---
APPROVED REPORT Exam: Resting ECG HR:38 bpm ECG Measurements Heart Rate 38 AXES LA 136 P 78 QRSd 85 QRS 60 QT 520 T 90 QTc 440 Conclusion SINUS BRADYCARDIA NONSPECIFIC T-WAVE ABNORMALITY CRITICAL TEST RESULT UNCONFIRMED REPORT Electronically signed by : Taiwo Yanes MD 06/01/2022 21:40:02
--- NOTE | 2022-06-01 10:59 | PC.NURSE ---
EKG performed and given to ER MD. Dominguez RN at for triage; pt hooked to monitor.
--- NOTE | 2022-06-01 11:03 | PC.NURSE ---
LISA GOINS at for patient eval
--- NOTE | 2022-06-01 11:10 | XR_ITS ---
FINAL REPORT CLINICAL HISTORY: recent pneumonia, weakness COMPARISON: 05/30/2022 FINDINGS: SINGLE-VIEW CHEST The heart size is normal. The mediastinum is normal. The lungs are clear. There is no pneumothorax. IMPRESSION: No acute cardiopulmonary process. Reviewed, Interpreted and Dictated by Nicola Lopez III, MD Transcribed by Latisha Ford Authenticated and . [facility]
--- NOTE | 2022-06-01 11:12 | HMH.EDGENADL ---
ED Disposition Clinical Impression: Symptomatic bradycardia Disposition: Admitted As Inpatient Condition on Discharge: admit - Critical Care Critical Care Time: Yes Attestation: On , the high probability of a clinically significant, sudden or life threatening deterioration of the following system(s) required my full and direct attention, intervention and personal management. The time I documented below is in addition to time spent performing reported procedures but includes the following listed in this critical care notation. 30 minutes Total Critical Care Time: 30 (minutes) Vital system(s) involved:: Circulatory Failure My critical care processes included: Assessment & monitoring of V/S, Initial and Re-exams, Data Review/Interpretation, Coordinating Care Medical Decision Making - Benjamin Inquiry Pt receiving controlled substance: No Vital Signs: 06/01/22 11:00 06/01/22 11:48 06/01/22 11:55 Temperature 98.3 F Temperature Source Oral Pulse Rate 38 L 37 L Pulse Rate [Left Radial] 39 L Respiratory Rate 16 16 19 Blood Pressure 116/72 122/75 Blood Pressure [Right Arm] 113/73 Blood Pressure Mean [Right Arm] 86 Blood Pressure Source Automatic Cuff Automatic Cuff Blood Pressure Position Sitting Sitting 02 Sat by Pulse Oximetry 100 99 99 Oxygen Delivery Method Room Air Room Air - Lab Data Lab Results 06/01/22 11:08: WBC 10.1 D, RBC 4.36, Hgb 11.8 L, Hct 37.6, MCV 86.1, MCH 27.2, MCHC 31.5 L, RDW 13.7, Plt Count 813 H D, MPV 7.4, Neut % (Auto) 76.4, Lymph % (Auto) 16.9, [place] % (Auto) 6.3, Eos % (Auto) 0.2, Baso % (Auto) 0.2, Neut # (Auto) 7.7, Lymph # (Auto) 1.7, [place] # (Auto) 0.6, Eos # (Auto) 0.0, Baso # (Auto) 0.0 06/01/22 11:08: Sodium 144, Potassium 3.3 L, Chloride 101, Carbon Dioxide 35 H, Anion Gap 11.3, BUN 20 H D, Creatinine 0.80 D, Estimated GFR 74, Est GFR ( Amer) 90 D, Glucose 150 H, Calcium 9.6, Magnesium 1.8, Total Bilirubin < 0.1 L, AST 31, ALT 23, Alkaline Phosphatase 119, Total Protein 8.5 H, Albumin 4.2, Globulin 4.3 H, Albumin/Globulin Ratio 1.0 L, TSH 0.80, Thyroxine (T4) 9.7 06/01/22 11:08: SARS-CoV-2 (PCR) Not detected, Influenza A Untype (PCR) Not detected, Influenza Type B (PCR) Not detected 06/01/22 11:08: Troponin I < 0.01 Result diagrams: 06/01/22 11:08 06/01/22 11:08 Orders (Tests/Meds): ED MEDICATIONS Generic Name Dose Route Start Last Admin Trade Name Freq PRN Reason Stop Dose Admin Acetaminophen 650 mg 06/01/22 13:31 Acetaminophen 325mg Tab PO 07/01/22 13:30 Q4HP PRN Fever or Mild Pain Dopamine HCl/Dextrose 250 mls @ 5.103 mls/hr 06/01/22 14:00 Dopamine 400mg/250ml D5w IV 07/01/22 13:59 .Q24H DANIELLE Protocol 2 MCG/KG/MIN Sodium Chloride 10 ml 06/01/22 13:31 Sodium Chloride 0.9% 10ml Flush Syringe IV 07/01/22 13:30 NEEDED PRN Maintain IV Site Discontinued Medications Generic Name Dose Route Start Last Admin Trade Name Freq PRN Reason Stop Dose Admin Potassium Chloride 40 meq 06/01/22 12:18 06/01/22 12:50 Potassium Chloride 20meq Tab PO 06/01/22 12:19 40 meq ONCE ONE Administration ORDERS Category Date Time Status Consult to Cardiology [CONS] Routine Cons 06/01/22 13:29 Active Basic Metabolic Panel AMLAB Lab 06/02/22 06:00 Ordered Calcium, Ionized Stat Lab 06/01/22 11:46 Received Complete Blood Count Auto Diff AMLAB Lab 06/02/22 06:00 Ordered Troponin I Q3H Lab 06/01/22 14:45 Ordered Troponin I Q3H Lab 06/01/22 17:45 Ordered - ECG Data Tracing #1 Independently interpreted by me, ventricular rate is 38, QTc is 440, axis is normal, slight T wave inversion in V3 and V4 without reciprocal changes, no ST elevation in anatomical contiguous leads, normal VA interval. - PARUL Score for Non-Stemi Age of Patient: 50-59 years old Heart Rate: <50 bpm Systolic Blood Pressure: 100-119 mmHg Serum Creatinine: 0.80-1.19 mg/dl CHF Killip Class: I-No CHF Other Risk Fact
--- NOTE | 2022-06-01 11:22 | PC.NURSE ---
Addendum entered by Teodora Parkinson 06/01/22 11:24: 10:58 Original Note: pt was assisted out of vehicle into [facility] and into ER by SRNA.
[2022-06-01 11:24] LABS: Coronavirus 19, PCR Not Detected (NotDetected); Influenza A, PCR Not Detected (NotDetected); Influenza B, PCR Not Detected (NotDetected)
--- NOTE | 2022-06-01 11:24 | PC.NURSE ---
ER at speaking with patient and family
--- NOTE | 2022-06-01 11:26 | PC.NURSE ---
pts usman left his name and number to call if anything happens to patient; Tyrese Pierre; [phone]
[2022-06-01 11:28] LABS: Basophils % 0.2 % (0.1-2.0); Eosinophils % 0.2 % (0.1-12.0); Hematocrit 37.6 % (37.0-47.0); Hemoglobin 11.8 g/dL (12.2-16.2); Lymphocytes # 1.7 K/mm3 (0.7-4.5); Lymphocytes % 16.9 % (10-50); Mean Corpuscular HGB Conc 31.5 g/dL (31.8-35.4); Mean Corpuscular Hemoglobin 27.2 pg (27.0-31.2); Mean Corpuscular Volume 86.1 fl (81-99); Mean Platelet Volume 7.4 fl (7.4-10.4); Monocytes # 0.6 K/mm3 (0.1-1.0); Monocytes % 6.3 % (1.7-9.3); Neutrophils # 7.7 K/mm3 (1.8-7.8); Neutrophils % 76.4 % (37.0-80.0); Platelet Count 813 K/mm3 (142-424); Red Blood Count 4.36 M/mm3 (4.20-5.40); Red Cell Distribution Width 13.7 % (11.5-17.5); White Blood Count 10.1 K/mm3 (4.8-10.8)
[2022-06-01 11:30] LABS: Chloride 101 mmol/L (98-107); Potassium 3.3 mmoL/L (3.5-5.1); Sodium 144 mmol/L (136-145)
[2022-06-01 11:32] LABS: Blood Urea Nitrogen 20 mg/dl (7-17); Estimated Glomerular Filt Rate 74 ml/min (>60); GFR (African American) 90 ML/MIN (>60)
[2022-06-01 11:33] LABS: Alanine Aminotransferase 23 U/L (12-78); Albumin Level 4.2 g/dl (3.5-5.0); Alkaline Phosphatase 119 U/L (38-126); Anion Gap 11.3 mEq/L (5-15); Aspartate Amino Transferase 31 U/L (14-36); Calcium 9.6 mg/dl (8.4-10.2); Carbon Dioxide 35 mmol/L (22.0-30.0); Globulin 4.3 g/dL (1.3-3.2); Glucose 150 mg/dl (74-100); Total Protein,Serum 8.5 g/dl (6.3-8.2)
[2022-06-01 11:34] LABS: Magnesium 1.8 mg/dl (1.6-2.3)
[2022-06-01 11:35] LABS: Bilirubin,Total < 0.1 mg/dl (0.2-1.3)
--- NOTE | 2022-06-01 11:35 | PC.NURSE ---
Radiology at BS for portable chest xr
--- NOTE | 2022-06-01 11:38 | PC.NURSE ---
notified lab of new orders for pt, spoke with jesika
--- NOTE | 2022-06-01 11:48 | PC.NURSE ---
yellow top tube send to lab at this time for ionized calcium level
[2022-06-01 11:51] LABS: T4 (Thyroxine) 9.7 ug/dl (5.53-11.0)
[2022-06-01 12:19] LABS: Troponin I < 0.01 ng/ml (0.00-0.034)
--- NOTE | 2022-06-01 12:20 | PC.NURSE ---
notified cardiology of consult on pt per ER MD request, spoke with josiah hawthorne states she will be over to see pt.
--- NOTE | 2022-06-01 12:41 | PC.NURSE ---
Yandy with Cardiology at BS
--- NOTE | 2022-06-01 13:27 | PC.NURSE ---
Yandy at BS speaking with patient regarding update on POC. ER MD speaking with Dr. Alejandre at this time
--- NOTE | 2022-06-01 13:29 | CA_ITS ---
APPROVED REPORT EXAM: Comprehensive 2D, Doppler, and color-flow Echocardiogram [employer]: Millie Pizano RT(R) Ht: 5 ft 6 in Wt: 150lbs BSA: 1.77 BP: 116/71 mmHg Indications: bradycardia, weakneess, HTN, pneumonia 2D Dimensions LVOT 2.03 cm (M/F) 1.5-2.5 LA Volume 31.80 mL LA Volume Index 17.96 mL/m2 (M/F) 16-34 M-Mode Dimensions RVDd 3.18 cm (0.9-2.6) LA Diam 2.87 cm (1.9-4.0) LVDd 3.90 cm (3.5-5.7) Ao Diam 2.58 cm (2.0-3.7) LVDs 2.79 cm (3.5-5.7) IVSd 0.89 cm (0.6-1.1) PWd 0.93 cm (0.6-1.1) EF (Teich) 55.50% FS 28.50% EDV (Teich) 65.90 mL ESV (Teich) 29.30 mL LV Diastology E Decel Time 207.00 (160-240 msec) E/A Ratio 2.0 MED E' 8.90 (< 7 cm/sec) E'/MED E' Ratio 8.10 (>14) LAT E' 11.00 (<10 cm/sec) E/LAT E' Ratio 6.55 (>14) Mitral Valve MV E Max Luis. 72.00 (40-130 cm/s) MV A Velocity 36.00 (40-130 cm/s) E/A Ratio 2.01 MV Decel. Time 207.00 (160-240 ms) MV PHT 61.00 ms Tricuspid Valve TR P. Velocity 165.00 cm/s RAP Estimate 10.00 mmHg RVSP 20.80 mmHg Left Ventricle Left atrium is normal size left ventricle is normal size, estimated ejection fraction 55% with no regional wall motion abnormality, diastolic parameters are inconclusive. Right Ventricle Right atrium and right ventricle are mildly enlarged with normal contractility. Aortic Valve Aortic valve is minimally thickened and fibrosed there is no aortic stenosis or aortic insufficiency. Mitral Valve Mitral valve is grossly normal, there is trace mitral regurgitation. Tricuspid Valve Tricuspid valve grossly normal, there is trace tricuspid regurgitation, tricuspid regurgitation jet velocity is inadequate for calculation of the right ventricular systolic pressure. Pulmonic Valve Pulmonic valve is poorly visualized. Great Vessels Aortic root is normal size. Inferior vena cava is poorly visualized. Pericardium No significant pericardial effusion noted. Conclusion 1. Normal left ventricular size, preserved left ventricular systolic function, estimated ejection fraction 55% with no regional wall motion abnormality, diastolic parameters are inconclusive. 2. Mildly enlarged right ventricle with normal contractility. 3. Trace mitral and tricuspid regurgitation. 4. No significant pericardial effusion noted. 5. Inferior vena cava is poorly visualized. Electronically signed by : Paulo Clay MD 06/01/2022 14:36:29
--- NOTE | 2022-06-01 13:31 | PC.NURSE ---
called vascular lab and notified of echo order
--- NOTE | 2022-06-01 13:48 | PC.NURSE ---
veterinary technician assistant at
--- NOTE | 2022-06-01 13:53 | PC.NURSE ---
verbal order per cardiology obtained for dopamine. order placed.
--- NOTE | 2022-06-01 14:14 | HMH.CNCARD ---
History of Present Illness Consult date: 06/01/22 Requesting physician: Amado Christensen Chief complaint: Bradycardia Additional Medical History:: Significant past medical history Anemia Hypertension Malignant melanoma status post treatment 2019 Left lung mass versus cavitary lesion-pulmonology following Chest adenopathy History of present illness: ER doctor: Patient is a 56-year-old female past medical history of hypertension on clonidine, recent inpatient hospitalization for pneumonia presents emergency department for evaluation of weakness. History is obtained by patient and significant other bedside states that over the last 24 hours patient has been lightheaded resulting in multiple ground-level falls. 1 of which struck her chin without loss of consciousness. Patient denies traumatic injuries however states she has a sore hip. Patient does not take beta-blockers. Patient has been on clonidine for 15 years. Denies worsening cough, abdominal pain, other acute complaints at this time. Cardiology consult: 56-year-old white female with significant past medical history as listed above presented to ED with complaint of generalized weakness and falls x2 today. Patient reports she has had generalized weakness and falls for a while with worsening dizziness over the past year. Patient was recently in hospital from 05/26 through 05/30 for a left lower lobe mass and adenopathy and is seeing pulmonology for it. Patient reports she has taken 0.2 mg of clonidine twice a day for htn for 12+ years and that during her hospitalization it was held due to hypotension. Patient reports was restarted prior to discharge. Upon presentation to ER EKG showed sinus bradycardia in the 30s. X-ray was negative for acute process. Labs significant for; potassium 3.3, magnesium 1.8, hgb 11.8, platelets 813 and creatinine 0.80. Patient only complaining of weakness and dizziness with standing. His chest pain worsening shortness of breath worsening cough fever or chills. [facility] History Medical History: Reports:: Cancer, Hypertension Denies:: Diabetes Mellitus Type 1, Diabetes Mellitus Type 2 *Have you ever received a pneumonia vaccine?: Yes *Have you received a flu vaccine this season?: Yes Laterality Cases: Right: Breast Biopsy Other Surgeries: Yes: Cancer Surgery, Cholecystectomy, Hysterectomy-Total, Skin Cancer Excision, Other Amputation: No Fractures: Yes - *Social History Smoking Status: Never smoker # Packs/Day (cigarettes): 0 Alcohol Intake: never Substance Use Type: former substance user *Occupational Status:: unemployed Housing: house Household Members: significant other *Travel in the last 8 weeks: Inside the [place] Family Hx:: Cancer Meds Home Medications Medication Instructions Recorded Confirmed Type Tizanidine HCl 4 mg PO BIDP PRN 05/26/22 06/01/22 History cloNIDine HCL [cloNIDine 0.2mg 0.2 mg PO BID 05/26/22 06/01/22 History Tablet] Cefdinir [Omnicef 300mg Capsule] 300 mg PO BID 06/01/22 06/01/22 History Ciprofloxacin HCl/Dexameth [Cipro 4 drp EAR-LEFT BID 06/01/22 06/01/22 History 0.3%-Dex 0.1% Otic Susp 7.5mL] clindamycin HCL [Cleocin HCl] 300 mg PO TID 06/01/22 06/01/22 History predniSONE [Prednisone 20mg 20 mg PO BID 06/01/22 06/01/22 History Tab] Allergies Allergy/AdvReac Type Severity Reaction Status Date / Time amoxicillin [From Augmentin] Allergy Intermediate I-RASH Verified 05/26/22 15:41 clavulanic acid Allergy Intermediate I-RASH Verified 05/26/22 15:41 [From Augmentin] Sulfa (Sulfonamide Allergy Intermediate I-RASH Verified 05/26/22 15:41 Antibiotics) Exam Vital signs and Labs for Last 24 Hours: Temp Pulse Resp BP Pulse Ox 98.3 F 37 L 19 122/75 99 06/01/22 11:00 06/01/22 11:55 06/01/22 11:55 06/01/22 11:55 06/01/22 11:55 Laboratory Results - last 24 hr 06/01/22 11:08: WBC 10.1 D, RBC 4.36, Hgb 11.8 L, Hct 37.6, MCV 86.1, MCH 27.2, MCHC 31.5 L, RDW 13.7, P
--- NOTE | 2022-06-01 14:15 | HMH.PHAINT ---
MEDICATION RECONCILIATION COMPLETED ON PATIENT USING EXTERNAL FILL HISTORY FROM PHARMACY AND DISCHARGE SUMMARY FROM PREVIOUS ADMISSION. -BRENDA CALLED
--- NOTE | 2022-06-01 14:23 | PC.NURSE ---
called report to TI estrada.
--- NOTE | 2022-06-01 14:58 | PC.NURSE ---
assisted with transferring patient up from er to room 219. noted patient to be alert and oriented. sitting up in bed, heart rate in 30s bp 127/75. no complaints.
--- NOTE | 2022-06-01 15:33 | HMH.PHAVTE ---
[facility] Pharmacy VTE Monitoring - Patient Demographics Admission date: 06/01/22 Report Date: 06/01/22 Time: 15:33 Allergies/Adverse Reactions: Patient Allergies amoxicillin [From Augmentin] Allergy (Intermediate, Verified 05/26/22 15:41) I-RASH clavulanic acid [From Augmentin] Allergy (Intermediate, Verified 05/26/22 15:41) I-RASH Sulfa (Sulfonamide Antibiotics) Allergy (Intermediate, Verified 05/26/22 15:41) I-RASH Height: 1.68 m Weight: 68.039 kg Patient Problems: Current Active Problems (Last Updated 12/09/17 @ 10:00 by BEN Sommers) Symptomatic bradycardia (Acute) Lung mass (Acute) HTN (hypertension) (Acute) - VTE Risk Labs: VTE Related Lab Results Hgb 11.8 g/dL (12.2-16.2) L 06/01/22 11:08 Hct 37.6 % (37.0-47.0) 06/01/22 11:08 Plt Count 813 K/mm3 (142-424) H D 06/01/22 11:08 BUN 20 mg/dl (7-17) H D 06/01/22 11:08 Creatinine 0.80 mg/dl (0.52-1.04) D 06/01/22 11:08 - Prophylaxis VTE Prophylaxis Ordered?: Yes Types of VTE Prophylaxis: TEDS Knee High Location of Applied Device: Bilateral Lower Extremeties
--- NOTE | 2022-06-01 17:00 | PC.NURSE ---
Dopamine gtt stopped at this time. NSR on tele with rate 60-70s. BP 159/91. Pt is asymptomatic at this time. Is sitting up in bed with no complaints.
--- NOTE | 2022-06-01 17:42 | PC.NURSE ---
Nursing Shift Note
--- NOTE | 2022-06-01 17:43 | PC.NURSE ---
Patient admitted from the ED this afternoon, patient Alert and Oriented x4, presenting complaint off bradycardia and a fall at home. Patient started on dopamine in the E.D. to increase H.R., currently dopamine gtt is stopped, patient heart rate 69bpm. Chronic back pain controlled with medication. Patient is independent in ADL's. Patient is asymptomatic, hypertensive with current bp 159/91. On room air, O2 sat high 90's gets up to the bathroom with no assistance. Wishes to restart home med list, PCP made aware.
--- NOTE | 2022-06-01 18:00 | PC.NURSE ---
BP 70/36. HR in the 50-60s. Dopamine gtt turned back on at this time.
--- NOTE | 2022-06-01 20:00 | PC.NURSE ---
pt's HR 47 (bp 124/81), increased dopamine drip to 14mcg/kg/min (bykj90edq/kg/min)
--- NOTE | 2022-06-01 20:30 | PC.NURSE ---
pt's bp increased to 151/86 HR remained 47, decreased dopamine drip to 12mcg/kg/min
--- NOTE | 2022-06-01 23:29 | ECG_ITS ---
APPROVED REPORT Exam: Resting ECG HR:52 bpm ECG Measurements Heart Rate 52 AXES CA 130 P 69 QRSd 90 QRS 8 QT 484 T 66 QTc 465 Conclusion SINUS BRADYCARDIA POSSIBLE RIGHT VENTRICULAR CONDUCTION DELAY [RSR (QR) IN V1/V2] BORDERLINE ECG UNCONFIRMED REPORT Electronically signed by : Taiwo Yanes MD 06/02/2022 08:12:30
[2022-06-02] VITALS (15 sets, daily range): BP systolic 90–160; BP diastolic 51–81; PULSE 45–63; RESP 11–20; TEMP 36.9–37.2; O2SAT 96–99; BMI 21.9
--- NOTE | 2022-06-02 05:00 | PC.NURSE ---
pt's bp 150/89, HR 45; but HR approximately in 40's throughout shift; decreased dopamine drip to 10mcg/kg/min (from 12mcg/kg/min)
[2022-06-02 07:22] LABS: Chloride 101 mmol/L (98-107); Potassium 3.3 mmoL/L (3.5-5.1); Sodium 142 mmol/L (136-145)
[2022-06-02 07:25] LABS: Blood Urea Nitrogen 23 mg/dl (7-17); Creatinine Clearance Estimated 118 mL/min (50-200); Estimated Glomerular Filt Rate 128 ml/min (>60); GFR (African American) 154 ML/MIN (>60)
[2022-06-02 07:26] LABS: Anion Gap 12.3 mEq/L (5-15); Calcium 9.3 mg/dl (8.4-10.2); Carbon Dioxide 32 mmol/L (22.0-30.0); Glucose 135 mg/dl (74-100)
[2022-06-02 07:34] LABS: Basophils # 0.1 K/mm3 (0-0.2); Basophils % 0.4 % (0.1-2.0); Eosinophils # 0.1 K/mm3 (0.0-0.4); Hematocrit 39.7 % (37.0-47.0); Hemoglobin 12.8 g/dL (12.2-16.2); Lymphocytes # 1.9 K/mm3 (0.7-4.5); Lymphocytes % 14.9 % (10-50); Mean Corpuscular HGB Conc 32.3 g/dL (31.8-35.4); Mean Corpuscular Hemoglobin 27.1 pg (27.0-31.2); Mean Corpuscular Volume 83.9 fl (81-99); Mean Platelet Volume 7.5 fl (7.4-10.4); Monocytes # 0.8 K/mm3 (0.1-1.0); Monocytes % 6.4 % (1.7-9.3); Neutrophils # 9.8 K/mm3 (1.8-7.8); Neutrophils % 77.3 % (37.0-80.0); Platelet Count 804 K/mm3 (142-424); Red Blood Count 4.73 M/mm3 (4.20-5.40); Red Cell Distribution Width 13.9 % (11.5-17.5); White Blood Count 12.7 K/mm3 (4.8-10.8)
--- NOTE | 2022-06-02 09:10 | HMH.HP ---
*Admission Date: 06/01/22 *Chief complaint: syncope *History of present illness: this patient with recent [facility] admit for pulmonary issues presents with syncopal episode and low hr and assoc dizzyness with ambulation- patient is a 56-year-old past medical history of hypertension on clonidine, recent inpatient hospitalization for pneumonia presents emergency department for evaluation of weakness. History is obtained by patient and significant other bedside states that over the last 24 hours patient has been lightheaded resulting in multiple ground-level falls. 1 of which struck her chin without loss of consciousness. Patient denies traumatic injuries however states she has a sore hip. Patient does not take beta-blockers. Patient has been on clonidine for 15 years. Denies worsening cough, abdominal pain, other acute complaints at this time. patient is a 56-year-old who presents to the emergency department for evaluation of weakness. Patient is bradycardic upon arrival heart rate in the high 30s, normotensive. Differential diagnosis includes sinus bradycardia, sick sinus syndrome, poor thyroidism, medication side effect, among others. Work-up will be conducted with hematologic labs, chest x-ray, EKG, troponin. Patient was placed on ZOLL however given that she is mentating appropriately and is normotensive medication therapy for bradycardia and transcutaneous pacing will be deferred at this time. Work-up is reviewed by me, hematologic labs are nonactionable, chest x-ray shows no acute lobar opacities or large pneumothorax. Echocardiography was ordered, ejection fraction is preserved at 55%. Due to symptomatic bradycardia the case was discussed with cardiology and they evaluated the patient and placed him on a dopamine drip. The case discussed with internal medicine they will admit the patient their service for continued evaluation at this time. pt will be admitted and on monitor and card eval- [facility] History I have reviewed the patient's past medical history: Yes Medical History: Reports:: Cancer (Melanoma - Remission as of 02/2022), Hypertension Denies:: Diabetes Mellitus Type 1, Diabetes Mellitus Type 2, MRSA *Have you ever received a pneumonia vaccine?: No *Have you received a flu vaccine this season?: No Other Medical History: Reports: Anemia, Chemotherapy Laterality Cases: Right: Breast Biopsy Other Surgeries: Yes: Cancer Surgery, Cholecystectomy, Hysterectomy-Total, Skin Cancer Excision, Other Amputation: No Fractures: Yes - *Social History Last grade of school completed: 9th or 10th Smoking Status: Never smoker # Packs/Day (cigarettes): 0 Alcohol Intake: never Substance Use Type: former substance user *Occupational Status:: unemployed Housing: apartment Household Members: other *Travel in the last 8 weeks: Inside the [place] Family Hx:: Cancer, Diabetes Review of Systems - Review of Systems Review of systems:: pertinent systems reviewed and negative unless documented below - Constitutional Denies headache(s) - Eyes Denies change in vision - ENT Denies sore throat - *Cardiovascular Reports lightheadedness, Reports slow heart rate, Denies chest pain at rest - *Respiratory Denies chest congestion, Denies cough - *Gastrointestinal Denies abdominal pain - *Genitourinary Denies blood in urine - *Musculoskeletal Denies joint pain - Integumentary/Breasts Denies rash - *Neurologic Reports weakness, Denies headache(s) - Psychiatric Denies anxiety Meds Home Medications Medication Instructions Recorded Confirmed Type Tizanidine HCl 4 mg PO BIDP PRN 05/26/22 06/01/22 History cloNIDine HCL [cloNIDine 0.2mg 0.2 mg PO BID 05/26/22 06/01/22 History Tablet] Gabapentin [Gabapentin 100mg Cap] 100 mg PO TID 06/01/22 06/01/22 History Oxycodone HCl [Oxycodone 5mg tab 5 mg PO TID PRN 06/01/22 06/01/22 History (IR)] clonazePAM [Clonazepam] 0.5 mg PO BID PRN 06/01/22 06/01/22 History Allergies
--- NOTE | 2022-06-02 10:48 | PC.NURSE ---
Dopamine gtt currently at 12 mcg/kg/min
[2022-06-02 16:15] LABS: Calcium, Ionized 5.1 mg/dL (4.5-5.6)
--- NOTE | 2022-06-02 19:10 | PC.NURSE ---
Addendum entered by Kirit Mann RN 06/02/22 19:21: Warm compress also applied to RFA. Original Note: Dopamine infiltrated slightly in RFA. Called and verified giving regitine, with Moe the pharmacist ultrasonic seaming machine operator. Did inject in RFA. Pt stated she was nauseated. Called and got a x 1 order for 25 mg po phenegran x [address] Kyle. Dopamine currently infusing in LAC @ 14 mcg/kg/min.
--- NOTE | 2022-06-02 21:00 | PC.NURSE ---
pt's bp 142/77, decreased dopamine drip to 12mcg/kg/min (from 14 mcg/kg/min)
[2022-06-03] VITALS (14 sets, daily range): BP systolic 92–129; BP diastolic 56–83; PULSE 47–96; RESP 12–22; TEMP 36.6–37.3; O2SAT 96–99; BMI 21.9
--- NOTE | 2022-06-03 06:47 | PC.NURSE ---
Addendum entered by Minnie Liz RN 06/03/22 07:24: placed yellow fall risk bracelet on pt, placed falling star on door, interventions added to worklist Original Note: assisted pt to bathroom with IV pole, noticed pt still had defib pads on and removed those for pt before sitting down to void, asked pt if needed anything and pt stated no, IV pump started beeping that dopamine drip was about to run out, told pt would be right back to get her back to bed that I was going to run and get another drip, went to get other drip and tylenol for pt, came back to room after obtaining meds, heard a low sigh from pt behind the bathroom door so asked pt if she was okay and opened door, pt was standing beside toilet and stated she fell, no one witnessed such fall and pt standing upon opening door, helped pt sit back down on toilet and hit help button, pt unable to give specifics of what happened and changed story about body parts and sides of body that hit the floor a few times, pt unsure about fall but able to answer orientation questions appropriately, no redness or bruising or broken skin on back, hips, or knees; another RN came to bathroom and assisted this RN to get pt back to bed, placed bed alarm on pt's bed, pt stated right hip and right knee hurting, notified transfer and pumphouse operator of pt's self reported fall but that nothing was witnessed, notified MD Kyle that pt said fell but was not witnessed and pt standing upon entering bathroom, stated to hold any altering medications and to monitor for now but that if pt cannot walk on extremities later to possibly get xray; after a few moments asked pt if hip and knee were still hurting pt said yes but pt stated it was her left hip and right knee, RN checked extremities and back and hips again and no redness, broken skin, or bruising present
--- NOTE | 2022-06-03 07:41 | PC.NURSE ---
removing pt's own socks and placing nonskid socks on pt and noticed pt's jeans were at end of bed when RN had placed them on night stand along the wall after got pt back to bed from bathroom; needed to put pt's own socks with other belongings so checked all belongings and charted them and when doing so found a prescription pill bottle in pt's jeans with 9.5 white pills in it and the label read tizanidine, had another TI Velez count pills with this RN in front of pt and filled out pink sheet and placed bottle in locked drawer, TI Velez will tell pharmacy that the pills are in there, pink sheet placed in chart, asked pt if had taken any of those pills pt answered no , TI Velez asked pt if had any other home medications with her possibly in the closet or a purse and pt stated no
--- NOTE | 2022-06-03 09:05 | PC.WOUNDNOTE ---
per Dr. Alejandre: ok to give prn meds (Oxycodone and Clonazepam). No additional prn pain or anxiety meds will be ordered.
--- NOTE | 2022-06-03 09:47 | HMH.ACPN2 ---
Internal Medicine - PN: Subj *Date: 06/04/22 *Time: 06:31 Interval history: still on dopamine drip and has still dizzyness with ambulation and fell last pm - pt with chronic back pain - Exam Vital signs and Labs for Last 24 Hours: Temp Pulse Resp BP Pulse Ox 98.8 F 61 12 121/73 99 06/03/22 08:33 06/03/22 08:00 06/03/22 08:00 06/03/22 08:00 06/03/22 08:00 Laboratory Results - last 24 hr 06/01/22 11:46: Ionized Calcium 5.1 I & O for Last 24 hours: Intake & Output 05/31/22 06/01/22 06/02/22 06/03/22 11:59 11:59 11:59 11:59 Intake Total 837 / 837 1080 / 1080 Output Total 0 / 0 800 / 800 Balance 837 / 837 280 / 280 Weight 150 lb 131 lb 7 oz 131 lb 6.963 oz - Constitutional no acute distress - *Routine HEENT Exam Head: Present: normocephalic Eye: Present: EOMI, PERRL ENT: Present: mucous membranes dry - *Routine Neck Exam Absent: JVD - *Routine Respiratory Exam Present: decreased breath sounds - *Routine Cardiovascular Exam Present: bradycardia - *Routine Abdominal Exam Present: soft - *Routine Extremities Exam Absent: calf tenderness - *Routine Skin Exam Present: intact - *Routine Neurological Exam Present: alert, CN II-XII intact - Routine Psychiatric Exam Present: normal affect Assessment and Plan (1) Symptomatic bradycardia Status: Acute Category: Medical Code(s): R00.1 - Bradycardia, unspecified (2) Lung mass Status: Acute Category: Medical Code(s): R91.8 - Other nonspecific abnormal finding of lung field (3) HTN (hypertension) Status: Acute Category: Medical Code(s): I10 - Essential (primary) hypertension (4) Syncope Status: Acute Qualifiers: Syncope type: unspecified Qualified Code(s): R55 - Syncope and collapse Category: Medical Code(s): R55 - Syncope and collapse
[2022-06-03 10:24] LABS: Chloride 103 mmol/L (98-107); Sodium 143 mmol/L (136-145)
[2022-06-03 10:25] LABS: Potassium 3.3 mmoL/L (3.5-5.1)
[2022-06-03 10:27] LABS: Alanine Aminotransferase 30 U/L (12-78); Albumin Level 4.2 g/dl (3.5-5.0); Alkaline Phosphatase 117 U/L (38-126); Anion Gap 9.3 mEq/L (5-15); Aspartate Amino Transferase 32 U/L (14-36); Bilirubin,Total 0.2 mg/dl (0.2-1.3); Blood Urea Nitrogen 16 mg/dl (7-17); Carbon Dioxide 34 mmol/L (22.0-30.0); Creatinine Clearance Estimated 99 mL/min (50-200); Estimated Glomerular Filt Rate 103 ml/min (>60); GFR (African American) 125 ML/MIN (>60); Globulin 4.2 g/dL (1.3-3.2); Total Protein,Serum 8.4 g/dl (6.3-8.2)
[2022-06-03 10:28] LABS: Calcium 9.6 mg/dl (8.4-10.2); Glucose 136 mg/dl (74-100)
[2022-06-03 10:33] LABS: Basophils % 0.2 % (0.1-2.0); Eosinophils # 0.1 K/mm3 (0.0-0.4); Eosinophils % 0.7 % (0.1-12.0); Hematocrit 41.7 % (37.0-47.0); Lymphocytes % 7.2 % (10-50); Mean Corpuscular HGB Conc 31.2 g/dL (31.8-35.4); Mean Corpuscular Hemoglobin 26.5 pg (27.0-31.2); Mean Corpuscular Volume 84.8 fl (81-99); Mean Platelet Volume 7.2 fl (7.4-10.4); Monocytes # 0.4 K/mm3 (0.1-1.0); Monocytes % 2.8 % (1.7-9.3); Neutrophils # 12.5 K/mm3 (1.8-7.8); Neutrophils % 89.2 % (37.0-80.0); Platelet Count 838 K/mm3 (142-424); Red Blood Count 4.92 M/mm3 (4.20-5.40)
[2022-06-03 10:40] LABS: MANUAL DIFFERENTIAL MANUAL DIFFERENTIAL (MANUAL DIFF)
[2022-06-03 11:15] LABS: Lymphocytes % 12 % (10-50); Monocytes % 4 % (2-9); Neutrophils % 84 % (42-76); Platelet Estimate Marked Increase; Total Cells Counted 100
[2022-06-03 11:19] LABS: RBC Morphology Normal
--- NOTE | 2022-06-03 17:09 | PC.NURSE ---
Patient alert and oriented x4, patient currently on dopamine gtt 6mcg/kg/min, HR 80's. Patient reported back pain, relieved by prn dose of Oxycodone. Patient tolerating cardiac diet, no BM this shift. Bed Alarm on, using bedside commode with assist, utilizes call light, non-skid socks in place, bed in lowest position. Normal sinus rhythm, did have Bradycardia at the beginning of the shift. Normotensive.
--- NOTE | 2022-06-03 19:59 | PC.NURSE ---
rounded on pt, pt asked when clonazepam and neurontin were due, told pt the neurontin is a scheduled night med and the second dose of clonazepam can be given now with the neurontin, pt asked when the oxycodone is due, RN stated that pt has already had 3 doses today so unable to bring the oxycodone
--- NOTE | 2022-06-03 20:08 | PC.NURSE ---
HR 82, decreased dopamine drip to 2mcg/kg/min (from 4mcg/kg/min)
--- NOTE | 2022-06-03 20:15 | PC.NURSE ---
2015-pt's HR 123, pt sitting up in bed, no chest pain, held dopamine drip at this time 2018-pt's HR 94, continued to hold dopamine drip 2099-pt's HR 99, pt resting in bed
[2022-06-04] VITALS (10 sets, daily range): BP systolic 93–140; BP diastolic 61–103; PULSE 75–124; RESP 15–22; TEMP 36.7–37.6; O2SAT 97–100; BMI 21.9
--- NOTE | 2022-06-04 09:30 | HMH.PNCARD ---
Subjective Date: 06/04/22 Time: 08:30 Principal diagnosis: bradycardia Interval history: This is a 57-year-old white female who presented to the emergency department with complaints of generalized weakness and falls. Patient was found to be bradycardic with a heart rate in the 30s. The patient was subsequently started on a dopamine drip for better heart rate control and her clonidine was stopped. The patient's dopamine drip was stopped at 9 PM last night and has not had no bradycardia since that time. Her heart rate is anywhere from 90 to around 110 bpm this morning. She denies any chest pain or pressure. She has some exertional shortness of breath at times. She states this is mild and improves with rest. She also complains of some dizziness and weakness still but states that this is much improved. Her symptoms were most likely secondary to the clonidine. She denies any fever, chills, nausea, vomiting, diarrhea, PND or orthopnea. Exam Vital signs and Labs for Last 24 Hours: Temp Pulse Resp BP Pulse Ox 99.6 F 108 H 15 118/82 98 06/04/22 08:00 06/04/22 06:00 06/04/22 06:00 06/04/22 06:00 06/04/22 06:00 Laboratory Results - last 24 hr 06/03/22 10:10: WBC 14.0 H, RBC 4.92, Hgb 13.0, Hct 41.7, MCV 84.8, MCH 26.5 L, MCHC 31.2 L, RDW 14.0, Plt Count 838 H, MPV 7.2 L, Neut % (Auto) 89.2 H, Lymph % (Auto) 7.2 L, [place] % (Auto) 2.8, Eos % (Auto) 0.7, Baso % (Auto) 0.2, Neut # (Auto) 12.5 H, Lymph # (Auto) 1.0, [place] # (Auto) 0.4, Eos # (Auto) 0.1, Baso # (Auto) 0.0, Total Counted 100, Neutrophils % (Manual) 84 H, Lymphocytes % (Manual) 12, Monocytes % (Manual) 4, Platelet Estimate Marked increase, RBC Morphology Normal 06/03/22 10:10: Sodium 143, Potassium 3.3 L, Chloride 103, Carbon Dioxide 34 H, Anion Gap 9.3, BUN 16 D, Creatinine 0.60, Estimated Creat Clear 99, Estimated GFR 103, Est GFR ( Amer) 125, Glucose 136 H, Calcium 9.6, Total Bilirubin 0.2, AST 32, ALT 30 D, Alkaline Phosphatase 117, Total Protein 8.4 H, Albumin 4.2, Globulin 4.2 H, Albumin/Globulin Ratio 1.0 L I & O for Last 24 hours: Intake & Output 06/01/22 06/02/22 06/03/22 06/04/22 23:59 23:59 23:59 23:59 Intake Total 477 / 477 1200 / 1200 1644 / 1644 0 / 0 Output Total 0 / 0 800 / 800 700 / 700 Balance 477 / 477 400 / 400 944 / 944 0 / 0 Weight 132 lb 131 lb 7 oz 131 lb 6.963 oz 131 lb 6.928 oz Narrative: Telemetry strip is sinus rhythm with a rate of 96 bpm. - Constitutional no acute distress, average body habitus - *Routine HEENT Exam Head: Present: normocephalic, atraumatic Eye: Present: EOMI, PERRL ENT: Present: mucous membranes moist - *Routine Neck Exam Present: supple, full ROM, normal carotid upstroke. Absent: JVD, carotid bruit, lymphadenopathy - *Routine Respiratory Exam Present: CTA bilaterally - *Routine Cardiovascular Exam Present: RRR, Normal S1, Normal S2. Absent: murmur - *Routine Abdominal Exam Present: soft, normoactive bowel sounds. Absent: tenderness, distended - *Routine Extremities Exam Present: full ROM, pulses intact, normal capillary refill. Absent: cyanosis, clubbing, edema - *Routine Skin Exam Present: intact, warm. Absent: erythema, rash - *Routine Neurological Exam Present: alert, oriented X3, CN II-XII intact. Absent: sensory deficit, motor deficit Progress Note: A&P (1) Symptomatic bradycardia Status: Acute (2) Lung mass Status: Acute (3) HTN (hypertension) Status: Acute (4) Falls Status: Acute Assessment and Plan for All Diagnoses:: Plan: 1. The patient was admitted to the hospital with symptomatic bradycardia. The patient was started on a dopamine drip for heart rate control. The the patient's heart rate improved to the 90s and 100s. The dopamine drip was stopped around 9 PM last night. She has had no bradycardia since that time and her heart rate has been anywhere from the 90s to around 110 bpm. Will continue to follow her heart rate over the next 24 hours fr
--- NOTE | 2022-06-04 09:36 | PC.NURSE ---
SRNA Note: Asked pt. if wanted a bath or to get cleaned up in any way. Pt. stated I am good, maybe later Will check back in with pt. and ask again. PRIYA, Perlita Graves
--- NOTE | 2022-06-04 09:50 | P.PN_ITS ---
Internal Medicine - PN: Subj *Date: 06/04/22 *Time: 14:01 Interval history: off dopamine since last pm with bp and pulse ok - Exam Vital signs and Labs for Last 24 Hours: Temp Pulse Resp BP Pulse Ox 99.6 F 108 H 15 118/82 98 06/04/22 08:00 06/04/22 06:00 06/04/22 06:00 06/04/22 06:00 06/04/22 06:00 Laboratory Results - last 24 hr 06/03/22 10:10: WBC 14.0 H, RBC 4.92, Hgb 13.0, Hct 41.7, MCV 84.8, MCH 26.5 L, MCHC 31.2 L, RDW 14.0, Plt Count 838 H, MPV 7.2 L, Neut % (Auto) 89.2 H, Lymph % (Auto) 7.2 L, [place] % (Auto) 2.8, Eos % (Auto) 0.7, Baso % (Auto) 0.2, Neut # (Auto) 12.5 H, Lymph # (Auto) 1.0, [place] # (Auto) 0.4, Eos # (Auto) 0.1, Baso # (Auto) 0.0, Total Counted 100, Neutrophils % (Manual) 84 H, Lymphocytes % (Manual) 12, Monocytes % (Manual) 4, Platelet Estimate Marked increase, RBC M orphology Normal 06/03/22 10:10: Sodium 143, Potassium 3.3 L, Chloride 103, Carbon Dioxide 34 H, Anion Gap 9.3, BUN 16 D, Creatinine 0.60, Estimated Creat Clear 99, Estimated GFR 103, Est GFR ( Amer) 125, Glucose 136 H, Calcium 9.6, Total Bilirubin 0.2, AST 32, ALT 30 D, Alkaline Phosphatase 117, Total Protein 8.4 H, Albumin 4.2, Globulin 4.2 H, Albumin/Globulin Ratio 1.0 L I & O for Last 24 hours: Intake & Output 06/01/22 06/02/22 06/03/22 06/04/22 11:59 11:59 11:59 11:59 Intake Total 837 / 837 1320 / 1320 1164 / 1164 Output Total 0 / 0 1300 / 1300 200 / 200 Balance 837 / 837 964 / 964 Weight 150 lb 131 lb 7 oz 131 lb 6.963 oz 131 lb 6.928 oz - Constitutional no acute distress - *Routine HEENT Exam Head: Present: normocephalic Eye: Present: EOMI, PERRL ENT: Present: mucous membranes dry - *Routine Neck Exam Absent: JVD - *Routine Respiratory Exam Present: CTA bilaterally - *Routine Cardiovascular Exam Present: RRR - *Routine Abdominal Exam Present: soft - *Routine Extremities Exam Present: full ROM - *Routine Skin Exam Present: intact - *Routine Neurological Exam Present: alert, CN II-XII intact - Routine Psychiatric Exam Present: normal affect Assessment and Plan (1) Symptomatic bradycardia Status: Acute Category: Medical Code(s): R00.1 - Bradycardia, unspecified (2) Lung mass Status: Acute Category: Medical Code(s): R91.8 - Other nonspecific abnormal finding of lung field (3) HTN (hypertension) Status: Acute Category: Medical Code(s): I10 - Essential (primary) hypertension (4) Falls Status: Acute Category: Medical Code(s): W19.XXXA - Unspecified fall, initial encounter (5) Adverse drug effect Status: Acute Qualifiers: Encounter type: initial encounter Qualified Code(s): T50.905A - Adverse effect of unspecified drugs, medicaments and biological substances, initial encounter Category: Medical Code(s): T50.905A - Adverse effect of unspecified drugs, medicaments and biological substances, initial encounter
[2022-06-04 10:39] LABS: Cholesterol 191 mg/dl (140-200); HDL Cholesterol 32 mg/dl (40-60); Triglycerides 226 mg/dl (30-150); VLDL Cholesterol 45 mg/dL (0-40)
--- NOTE | 2022-06-04 13:15 | PC.NURSE ---
[address] Alejandre, asked if pt was ok to come out of stepdown. states that the pt is to be discharged today, but is ok until then. [address] Lieberman, no answer [address] Lieberman that pt is to be discharged. per his request, pt was notified that she would be dc today and that his office will reschedule bronchoscopy and notify her of the appointment day/time. 1317 Pt notified of change in POC
--- NOTE | 2022-06-04 14:04 | HMH.DCSUM ---
General - General Admission date:: 06/01/22 Discharge date: 06/04/22 HPI HPI: this patient with recent [place] admit for pulmonary issues presents with syncopal episode and low hr and assoc dizzyness with ambulation- patient is a 56-year-old past medical history of hypertension on clonidine, recent inpatient hospitalization for pneumonia presents emergency department for evaluation of weakness. History is obtained by patient and significant other bedside states that over the last 24 hours patient has been lightheaded resulting in multiple ground-level falls. 1 of which struck her chin without loss of consciousness. Patient denies traumatic injuries however states she has a sore hip. Patient does not take beta-blockers. Patient has been on clonidine for 15 years. Denies worsening cough, abdominal pain, other acute complaints at this time. patient is a 56-year-old who presents to the emergency department for evaluation of weakness. Patient is bradycardic upon arrival heart rate in the high 30s, normotensive. Differential diagnosis includes sinus bradycardia, sick sinus syndrome, poor thyroidism, medication side effect, among others. Work-up will be conducted with hematologic labs, chest x-ray, EKG, troponin. Patient was placed on ZOLL however given that she is mentating appropriately and is normotensive medication therapy for bradycardia and transcutaneous pacing will be deferred at this time. Work-up is reviewed by me, hematologic labs are nonactionable, chest x-ray shows no acute lobar opacities or large pneumothorax. Echocardiography was ordered, ejection fraction is preserved at 55%. Due to symptomatic bradycardia the case was discussed with cardiology and they evaluated the patient and placed him on a dopamine drip. The case discussed with internal medicine they will admit the patient their service for continued evaluation at this time. pt will be admitted and on monitor and card eval- Hospital Course Hospital Course: pt was admitted and on dopamine drip to sustain bp and hr - pt was seen by card - past medical history Anemia Hypertension Malignant melanoma status post treatment 2019 Left lung mass versus cavitary lesion-pulmonology following Chest adenopathy Patient is a 56-year-old female past medical history of hypertension on clonidine, recent inpatient hospitalization for pneumonia presents emergency department for evaluation of weakness. History is obtained by patient and significant other bedside states that over the last 24 hours patient has been lightheaded resulting in multiple ground-level falls. 1 of which struck her chin without loss of consciousness. Patient denies traumatic injuries however states she has a sore hip. Patient does not take beta-blockers. Patient has been on clonidine for 15 years. Denies worsening cough, abdominal pain, other acute complaints at this time. Cardiology consult: 56-year-old white female with significant past medical history as listed above presented to ED with complaint of generalized weakness and falls x2 today. Patient reports she has had generalized weakness and falls for a while with worsening dizziness over the past year. Patient was recently in hospital from 05/26 through 05/30 for a left lower lobe mass and adenopathy and is seeing pulmonology for it. Patient reports she has taken 0.2 mg of clonidine twice a day for htn for 12+ years and that during her hospitalization it was held due to hypotension. Patient reports was restarted prior to discharge. Upon presentation to ER EKG showed sinus bradycardia in the 30s. X-ray was negative for acute process. Labs significant for; potassium 3.3, magnesium 1.8, hgb 11.8, platelets 813 and creatinine 0.80. Patient only complaining of weakness and dizziness with standing. His chest pain worsening shortness of breath worsening cough fever or chills. pt with slow improvement and drip dc last pm - card saw pt -entered and electronically sig
--- NOTE | 2022-06-04 14:57 | PC.NURSE ---
SRNA Note: Checked back in with pt. regarding bath for today, she stated i am going home, no thank you
--- NOTE | 2022-06-04 15:18 | HMH.PHAINT ---
DISCHARGE MEDICATION COUNSELING PROVIDED. DISCUSSED STOPPING THE TIZANIDINE AND CLONIDINE. PATIENT VERBALIZED NO QUESTIONS AT THIS TIME.
--- NOTE | 2022-06-04 15:20 | PC.NURSE ---
rounded on patient. patient states she has no questions in regards to meds or care, or discharge. encouraged her to let us know if any questions do arise
[2022-06-05 08:21] LABS: Direct LDL Cholesterol 101 mg/dL (100-129)
--- NOTE | 2022-06-05 13:06 | CARE MANAGER ---
Contacted patient related to discharge from hospital. She states that she feels weak and heart rate is in 100s. We discussed logging heart rate and taking to follow up appointment on Saturday. She denies any other questions or concerns at this time. TI Woodard
== END 2022-06-04 16:02 | disposition home or self-care (01) | DRG 310 ==
LOC: ER 11:13 → 2ND 13:54
PROVIDERS: Nurse Practitioner Family; Admitting Provider Emergency Medicine; Emergency Provider Emergency Medicine; PCP Emergency Medicine; Visit Provider Emergency Medicine
DX: R00.1 Bradycardia, unspecified (principal); I10 Essential (primary) hypertension; Z85.820 Personal history of malignant melanoma of skin; T46.5X5A Adverse effect of other antihypertensive drugs, initial encounter
CPT/HCPCS: 36415; 71045; 80048; 80053; 80061; 82330; 83735; 84436; 84443; 84484; 85007; 85025; 93005; 93306; 99291; C9803; J2790; U0003; U0005

== ENCOUNTER → 2022-06-08 15:27 | Outpatient (CLI) | payer OTHER, SELFPAY | PROVIDERS: PCP Nurse Practitioner Family; Visit Provider Internal Medicine Pulmonary Disease | DX: Z20.822 Contact with and (suspected) exposure to COVID-19 (principal) | CPT/HCPCS: C9803; U0003; U0005 ==

== ENCOUNTER 2022-06-09 18:11 | Emergency (ER) | payer OTHER, SELFPAY ==
[2022-06-09 18:25] VITALS: BP 181/109; PULSE 61; RESP 18; TEMP 37.6; O2SAT 100; BMI 22.1
--- NOTE | 2022-06-09 18:38 | XR_ITS ---
PROCEDURE INFORMATION: Exam: XR Right Ribs with PA Chest Exam date and time: 06/09/2022 6:49 PM Age: 57 years old Clinical indication: Other: RT inferior rib pain; Patient HX: PT fell one week ago; Additional info: Pain fell one week ago RT inferior rib pain TECHNIQUE: Imaging protocol: Radiologic exam of the Right ribs with PA chest. Views: 3 views COMPARISON: CR XR CHEST PORTABLE 06/01/2022 11:45 AM FINDINGS: Lungs: No acute airspace consolidation. No appreciable pulmonary edema. Pleural spaces: No pleural effusion. No pneumothorax. Heart/Mediastinum: Within normal limits. Bones/joints: Minimally displaced fracture of the anterior right 9th rib near the costochondral junction with early callus formation, compatible with subacute fracture. Questionable nondisplaced fracture of the anterior 6th rib, age indeterminate. IMPRESSION: 1. Minimally displaced fracture of the anterior right 9th rib near the costochondral junction with early callus formation, compatible with subacute fracture. 2. Questionable nondisplaced fracture of the anterior 6th rib, age indeterminate.
[2022-06-09 18:47] VITALS: BP 175/98; PULSE 67; O2SAT 100
--- NOTE | 2022-06-09 18:56 | PC.NURSE ---
Pt tp radiology via
--- NOTE | 2022-06-09 19:01 | PC.NURSE ---
Fatou in lab called and reported that patients CBC was clotted and she needed to redraw, she will be coming down shortly to redraw that test.
[2022-06-09 19:03] VITALS: PULSE 63; O2SAT 99
--- NOTE | 2022-06-09 19:03 | HMH.EDGENADL ---
ED Disposition Clinical Impression: Right rib fracture Qualifiers: Encounter type: initial encounter Rib fracture type: multiple ribs Fracture type: closed Qualified Code(s): S22.41XA - Multiple fractures of ribs, right side, initial encounter for closed fracture Disposition: Home, Self-Care Condition on Discharge: Good Instructions: DI for Rib Fracture Additional Instructions: Continue taking oxycodone for pain and add Toradol as prescribed. Additional instructions for RIB INJURIES: See your physician as soon as possible for further evaluation. Hold a pillow against your injured ribs to help with pain when coughing or sneezing. Sleep with several pillows to help support you in the most comfortable position. Take deep breaths frequently. Use incentive spirometer 4-5 times a day. Return immediately if shortness of breath, intolerable pain, coughing of blood, abdominal pain or vomiting. Prescriptions: Ketorolac Tromethamine [Toradol 10mg tablet] 10 mg PO Q6HP PRN #10 tab PRN Reason: Moderate Pain Transmission Status: Received by [facility] Referrals: Kevin Alejandre MD [Primary Care Provider] - - Critical Care Critical Care Time: No Attestation: On 06/09/22, the high probability of a clinically significant, sudden or life threatening deterioration of the following system(s) required my full and direct attention, intervention and personal management. The time I documented below is in addition to time spent performing reported procedures but includes the following listed in this critical care notation. Medical Decision Making - Benjamin Inquiry Pt receiving controlled substance: Yes Benjamin was queried for this patient: Yes Risks and benefits of using a controlled substance: were not discussed with pt by me Vital Signs: 06/09/22 18:25 06/09/22 18:47 06/09/22 19:03 Temperature 99.7 F H Temperature Source Oral Pulse Rate 67 63 Pulse Rate [Left Radial] 61 Respiratory Rate 18 Blood Pressure 175/98 H Blood Pressure [Right Arm] 181/109 H Blood Pressure Mean [Right Arm] 133 Blood Pressure Source Automatic Cuff Blood Pressure Source [Right Arm] Automatic Cuff Blood Pressure Position Sitting Blood Pressure Position [Right Arm] Sitting 02 Sat by Pulse Oximetry 100 100 99 Oxygen Delivery Method Room Air Room Air - Lab Data Lab Results 06/09/22 18:55: Sodium 146 H, Potassium 3.4 L, Chloride 111 H, Carbon Dioxide 25, Anion Gap 13.4, BUN 19 H, Creatinine 0.70, Estimated Creat Clear 85, Estimated GFR 87, Est GFR ( Amer) 105, Glucose 95, Calcium 9.3, Total Bilirubin < 0.1 L, AST 21, ALT 16, Alkaline Phosphatase 119, Total Protein 7.8, Albumin 4.1, Globulin 3.7 H, Albumin/Globulin Ratio 1.1 06/09/22 19:03: WBC 6.4, RBC 4.07 L, Hgb 11.1 L, Hct 34.9 L, MCV 85.7, MCH 27.4, MCHC 31.9, RDW 14.5, Plt Count 471 H, MPV 7.5, Neut % (Auto) 56.8, Lymph % (Auto) 34.5, [place] % (Auto) 7.4, Eos % (Auto) 0.8, Baso % (Auto) 0.4, Neut # (Auto) 3.7, Lymph # (Auto) 2.2, [place] # (Auto) 0.5, Eos # (Auto) 0.1, Baso # (Auto) 0.0 Result diagrams: 06/09/22 19:03 06/09/22 18:55 Orders (Tests/Meds): ED MEDICATIONS Discontinued Medications Generic Name Dose Route Start Last Admin Trade Name Cathryn PRN Reason Stop Dose Admin Ketorolac Tromethamine 30 mg 06/09/22 19:59 06/09/22 20:01 Ketorolac 30mg/Ml Vial IV 06/09/22 20:00 30 mg ONCE ONE Administration Morphine Sulfate 4 mg 06/09/22 19:58 06/09/22 20:02 Morphine 4mg/Ml Syringe IV 06/09/22 19:59 4 mg ONCE ONE Administration - Physician Consults Physician Consulted: Hill (present) Time: 20:00 Reason -: Pt condition Comment/Response: Requests adding Toradol to pain regimen. F/U in office next week. General Adult HPI - General Chief complaint: PAIN Stated complaint: AO08/15 pain R side, lower back Time Seen by Provider: 06/09/22 19:30 Mode of Arrival: Wheelchair Limitations: No Limitations Descr
--- NOTE | 2022-06-09 19:06 | PC.NURSE ---
Lab at to recollect CBC
[2022-06-09 19:10] LABS: Alanine Aminotransferase 16 U/L (12-78); Albumin Level 4.1 g/dl (3.5-5.0); Albumin/Globulin Ratio 1.1 (1.1-1.8); Alkaline Phosphatase 119 U/L (38-126); Anion Gap 13.4 mEq/L (5-15); Aspartate Amino Transferase 21 U/L (14-36); Blood Urea Nitrogen 19 mg/dl (7-17); Calcium 9.3 mg/dl (8.4-10.2); Carbon Dioxide 25 mmol/L (22.0-30.0); Chloride 111 mmol/L (98-107); Creatinine Clearance Estimated 85 mL/min (50-200); Estimated Glomerular Filt Rate 87 ml/min (>60); GFR (African American) 105 ML/MIN (>60); Globulin 3.7 g/dL (1.3-3.2); Glucose 95 mg/dl (74-100); Potassium 3.4 mmoL/L (3.5-5.1); Sodium 146 mmol/L (136-145); Total Protein,Serum 7.8 g/dl (6.3-8.2)
[2022-06-09 19:11] LABS: Bilirubin,Total < 0.1 mg/dl (0.2-1.3)
[2022-06-09 19:13] LABS: Basophils % 0.4 % (0.1-2.0); Eosinophils # 0.1 K/mm3 (0.0-0.4); Eosinophils % 0.8 % (0.1-12.0); Hematocrit 34.9 % (37.0-47.0); Hemoglobin 11.1 g/dL (12.2-16.2); Lymphocytes # 2.2 K/mm3 (0.7-4.5); Lymphocytes % 34.5 % (10-50); Mean Corpuscular HGB Conc 31.9 g/dL (31.8-35.4); Mean Corpuscular Hemoglobin 27.4 pg (27.0-31.2); Mean Corpuscular Volume 85.7 fl (81-99); Mean Platelet Volume 7.5 fl (7.4-10.4); Monocytes # 0.5 K/mm3 (0.1-1.0); Monocytes % 7.4 % (1.7-9.3); Neutrophils # 3.7 K/mm3 (1.8-7.8); Neutrophils % 56.8 % (37.0-80.0); Platelet Count 471 K/mm3 (142-424); Red Blood Count 4.07 M/mm3 (4.20-5.40); Red Cell Distribution Width 14.5 % (11.5-17.5); White Blood Count 6.4 K/mm3 (4.8-10.8)
[2022-06-09 20:30] VITALS: BP 171/95; PULSE 70; RESP 18; TEMP 36.6; O2SAT 99
== END 2022-06-09 20:32 | disposition home or self-care (01) ==
PROVIDERS: Emergency Provider Emergency Medicine; PCP Emergency Medicine
DX: S22.41XA Multiple fractures of ribs, right side, initial encounter for closed fracture (principal); R07.81 Pleurodynia; W19.XXXA Unspecified fall, initial encounter; Y92.239 Unspecified place in hospital as the place of occurrence of the external cause
CPT/HCPCS: 71101; 80053; 85025; 99283

== ENCOUNTER 2022-06-11 07:45 | Day surgery (SDC) | payer OTHER, SELFPAY ==
[2022-06-08 10:27] VITALS: BMI 22.4
[2022-06-11] VITALS (13 sets, daily range): BP systolic 153–180; BP diastolic 95–109; PULSE 66–97; RESP 12–18; TEMP 36.7–37.1; O2SAT 98–100
--- NOTE | 2022-06-11 08:46 | HMH.ANESCL ---
[facility] Anesthesia Checklist - Patient Identification Patient Identification: Arm Band - Structural Data Admitted From: Home Planned Operative Procedure/s: Bronchoscopy Consent for Planned Operative Procedure(s) Verified: Yes - NPO Status Verified Time NPO: 00:00 - Additional verifications Anesthesia Reactions: No Hx Blood Transfusions: No Blood Transfusion Reaction: No - Airway Assessment C-Spine Mobility Assessed: Yes TMJ Mobility Assessed: Yes Dentition: Edentulous - Neurological Assessment Level of Consciousness: Awake Hx Seizures: No Numbness or tingling in extremities: No - Anesthesia Plan Anesthesia Risk discussed: Yes Anesthesia Plan: Verified ASA Class: II Anesthesia Type: General [facility] History I have reviewed the patient's past medical history: Yes Medical History: Reports:: Cancer, Hypertension Denies:: Diabetes Mellitus Type 1, Diabetes Mellitus Type 2, Internal Pacemaker, MRSA, Seizures *Have you ever received a pneumonia vaccine?: No *Have you received a flu vaccine this season?: No Other Medical History: Reports: Anemia, Chemotherapy. Denies: Blood Transfusion Reaction Anesthesia experience/problems:: None Laterality Cases: Right: Breast Biopsy Other Surgeries: Yes: Cancer Surgery, Cholecystectomy, Hysterectomy-Total, Skin Cancer Excision, Other. No: Pacemaker Amputation: No Fractures: Yes - *Social History Last grade of school completed: High school graduate Smoking Status: Never smoker # Packs/Day (cigarettes): 0 Alcohol Intake: never Substance Use Type: former substance user *Occupational Status:: unemployed Housing: apartment Household Members: other *Travel in the last 8 weeks: None Family Hx:: Cancer, Diabetes
--- NOTE | 2022-06-11 09:37 | XR_ITS ---
FINAL REPORT CLINICAL HISTORY: Preoperative respiratory clearance COMPARISON: 06/01/2022 FINDINGS: A single view of the chest was obtained. The heart is normal in size. The mediastinum is unremarkable. The lungs are clear. There is no pleural effusion. There is no pneumothorax. There is no acute osseous abnormality. IMPRESSION: No acute cardiopulmonary process. Reviewed, Interpreted and Dictated by Dilan Argueta MD Transcribed by Racheal Lemus Authenticated and [facility]
--- NOTE | 2022-06-11 11:01 | XR_ITS ---
FINAL REPORT CLINICAL HISTORY: TRANSBRONCHIAL BIOPSY IN OR FINDINGS: FLUORO TIME PROCEDURE: Fluoroscopy in the operating room. FINDINGS: Fluoroscopy time was provided by the radiology department for the clinical service. One spot film was obtained. Fluoroscopy exposure time: 1:53 minutes IMPRESSION: See above Reviewed, Interpreted and Dictated by Dilan Argueta MD Transcribed by Cynthia Bethea Authenticated and [facility]
--- NOTE | 2022-06-11 11:17 | HMH.ANESI ---
[facility] Anesthesia Record Part I Intake, IV Amount: 1,000 Estimated blood loss (mL): 0 Urine output (mL): 0 Blood Pressure: 153/103 SaO2: 99 Pulse Rate: 82 Respiratory Rate: 12 Temperature: 98.4 F Patient is:: Awake, Stable Stable to PACU at:: 11:10
--- NOTE | 2022-06-11 11:38 | SUR.PHASEI ---
1136 Dr. Lieberman at bedside
--- NOTE | 2022-06-11 11:48 | SUR.PHASEI ---
1115 per Patricia Cabral CRNA, pt can be transported to post op as long as BP remains close to preop BP
--- NOTE | 2022-06-11 11:49 | SUR.PHASEI ---
1138 called and gave detailed repot to Torsten Lopez RN [id number] transported via stretcher to post op. vital signs stable. resting comfortably. left pt in stable condition with Dianna Subramanian RN at bedside.
--- NOTE | 2022-06-11 12:08 | XR_ITS ---
FINAL REPORT CLINICAL HISTORY: L lung pain COMPARISON: Chest x-ray dated same day, 2-1/2 hours prior FINDINGS: The heart size is normal. The mediastinum is normal. There is no focal infiltrate or edema. There are no pleural effusions. There is no pneumothorax. There is no osseous abnormality. IMPRESSION: No acute cardiopulmonary process Reviewed, Interpreted and Dictated by Dilan Argueta MD Transcribed by Loida Oliveros Authenticated and [facility]
--- NOTE | 2022-06-11 12:30 | HMH.BRONCH ---
- Procedure: Date: 06/11/22 Patient Date of :: 1965 Procedure Performed:: Bronchoscopy airway examination, bronchoalveolar lavage, transbronchial biopsy, endobronchial ultrasound-guided fine-needle aspiration Indications:: Lymphadenopathy, atypical pneumonia, history of melanoma Performing Provider:: Georges Lieberman MD Referring Provider:: Dr. Alejandre Sedation:: General anesthesia Procedure:: Bronchoscopy airway examination, bronchoalveolar lavage, transbronchial biopsy, endobronchial ultrasound-guided fine-needle aspiration Clean EBUS bronchoscopy was advanced the ET tube and lymph node surveillance was performed. No significant lymphadenopathy noted except for station 7. A total of 6 passes were performed at stations 7, pathology at bedside, confirmed adequate lymphoid tissue admixed with bronchial tissue and pigmented macrophages. We will await for the final results. EBUS bronchoscope was retracted and a clean DIAGNOSTIC bronchoscopy was advanced through the ET tube and airways were examined up to subsegmental bronchi. Airways appeared grossly normal, no evidence of mucoid secretions, mucous plugging active bleeding/old blood clots noted. Bronchoalveolar lavage was performed in the LEFT LOWER LOBE with instillation of 60 cc normal saline with return of 30 cc back. BAL fluid was sent for cell count and differential along with bacterial fungal and AFB stain and cultures. Transbronchial biopsy was performed in the LEFT LOWER LOBE with a total of 7 biopsies performed, 5 biopsy specimens were sent in formalin for cytopathologic examination. The other 2 biopsy samples, were sent one each in two separate normal saline specimen cups for bacterial fungal and AFB stain cultures. Special request was also made for the pathologist to evaluate for AFB and fungal organisms on the cytopathologic examination. Patient tolerated the procedure with no acute complications. We will follow the patient in pulmonary clinic in 7 to 10 days. Findings:: Please see the procedure note Recommendations:: Please see the procedure note. Follow in clinic as previously scheduled. Complications:: None Estimated blood obtained (mL): 5
--- NOTE | 2022-06-11 12:48 | SUR.PHASEII ---
Dr. Lieberman called said cxr is normal and pt may be discharged.
[2022-06-18 07:36] VITALS: BP 174/106; PULSE 72; TEMP 36.8
--- NOTE | 2022-06-18 07:36 | P.PNANES_ITS ---
[facility] Anesthesia Record Part II Anesthesia Record Part II Discharge Time: 11:40 Destination: Surgical Day Care (OP Surgery) PACU nurse assessment reviewed?: Yes Patient Condition:: Good Anesthesia Complications:: None Swallowing reflex intact?: Yes Cyanosis?: No Blood Pressure: 174/106 Pulse Rate: 72 Temperature: 98.3 F Mental Status: Alert & Oriented Pain level:: 0 Nausea and/or vomitting:: None Intake, IV Amount: 0
== END 2022-06-11 12:49 | disposition home or self-care (01) ==
LOC: OR 07:46
PROVIDERS: PCP Emergency Medicine; Visit Provider Internal Medicine Pulmonary Disease
PROC: (CPT 31624; principal; 2022-06-11 09:00)
DX: J18.9 Pneumonia, unspecified organism (principal); Z85.820 Personal history of malignant melanoma of skin; I10 Essential (primary) hypertension; Z79.899 Other long term (current) drug therapy; E87.6 Hypokalemia; Z88.8 Allergy status to other drugs, medicaments and biological substances; I88.9 Nonspecific lymphadenitis, unspecified
CPT/HCPCS: 31624; 31629; 31628; 71045; 76000; 87070; 87077; 87102; 87116; 87186; 87205; 87206; 89051; J2405; J2710

== ENCOUNTER 2022-06-11 18:41 | Emergency (ER) | payer OTHER, SELFPAY ==
--- NOTE | 2022-06-11 18:41 | ECG_ITS ---
APPROVED REPORT Exam: Resting ECG HR:81 bpm ECG Measurements Heart Rate 81 AXES OK 128 P 79 QRSd 89 QRS 40 QT 377 T 70 QTc 414 Conclusion SINUS RHYTHM NORMAL ECG UNCONFIRMED REPORT Electronically signed by : Taiwo Yanes MD 06/12/2022 21:24:43
[2022-06-11 18:43] VITALS: BP 188/116; PULSE 85; RESP 18; TEMP 37.4; O2SAT 98; BMI 22.1
--- NOTE | 2022-06-11 18:44 | XR_ITS ---
PROCEDURE INFORMATION: Exam: XR Chest Exam date and time: 06/11/2022 6:40 PM Age: 57 years old Clinical indication: Pain; Chest pressure; Additional info: Chest pain// previous rib fracture TECHNIQUE: Imaging protocol: Radiologic exam of the chest. Views: 2 views. COMPARISON: CR XR CHEST PORTABLE 06/11/2022 12:10 PM FINDINGS: Lungs: Normal pulmonary expansion. Pulmonary vasculature grossly normal. Question patchy mild alveolar opacity in the lingular portion of the left upper lobe on the frontal view which is somewhat bandlike on the lateral view. This could represent atelectasis or developing pneumonia. Mild chronic left apical pleural/parenchymal scarring again noted. Pleural spaces: No pleural effusion. No pneumothorax. Heart/Mediastinum: Heart size normal. No tracheal/mediastinal shift. Vasculature: Mild aortic ectasia/tortuosity. Bones/joints: No acute osseous abnormalities are identified. The fractures questioned in the right anterior 9th rib and right anterior 6th rib on the recent rib detail views are not well seen with standard chest x-ray technique. Soft tissues: Right axillary surgical clips. IMPRESSION: Question mild alveolar opacity in the lingular portion of the left upper lobe, atelectasis versus early/mild pneumonia.
--- NOTE | 2022-06-11 18:48 | PC.NURSE ---
Pt to radiology via stretcher
[2022-06-11 18:55] VITALS: BP 157/105; PULSE 78; O2SAT 96
[2022-06-11 18:59] LABS: Basophils % 0.3 % (0.1-2.0); Eosinophils % 0.2 % (0.1-12.0); Hematocrit 36.8 % (37.0-47.0); Hemoglobin 11.8 g/dL (12.2-16.2); Lymphocytes # 0.8 K/mm3 (0.7-4.5); Lymphocytes % 10.5 % (10-50); Mean Corpuscular Hemoglobin 27.8 pg (27.0-31.2); Mean Corpuscular Volume 86.7 fl (81-99); Mean Platelet Volume 7.4 fl (7.4-10.4); Monocytes # 0.1 K/mm3 (0.1-1.0); Monocytes % 1.7 % (1.7-9.3); Neutrophils # 6.9 K/mm3 (1.8-7.8); Neutrophils % 87.4 % (37.0-80.0); Platelet Count 514 K/mm3 (142-424); Red Blood Count 4.24 M/mm3 (4.20-5.40); Red Cell Distribution Width 14.6 % (11.5-17.5); White Blood Count 7.9 K/mm3 (4.8-10.8)
[2022-06-11 19:03] VITALS: BMI 22.1
[2022-06-11 19:08] LABS: MANUAL DIFFERENTIAL MANUAL DIFFERENTIAL (MANUAL DIFF)
[2022-06-11 19:11] LABS: Anion Gap 13.7 mEq/L (5-15); Blood Urea Nitrogen 15 mg/dl (7-17); Carbon Dioxide 27 mmol/L (22.0-30.0); Chloride 108 mmol/L (98-107); Creatinine Clearance Estimated 100 mL/min (50-200); Estimated Glomerular Filt Rate 103 ml/min (>60); GFR (African American) 125 ML/MIN (>60); Glucose 140 mg/dl (74-100); Potassium 3.7 mmoL/L (3.5-5.1); Sodium 145 mmol/L (136-145)
--- NOTE | 2022-06-11 19:19 | CT_ITS ---
PROCEDURE INFORMATION: Exam: CTA Chest With Contrast Exam date and time: 06/11/2022 7:28 PM Age: 57 years old Clinical indication: Shortness of breath; Additional info: SOA with inspiration post bronch TECHNIQUE: Imaging protocol: Computed tomographic angiography of the chest with contrast. 3D rendering (Not supervised by radiologist): MIP and/or 3D reconstructed images were created by the technologist. Radiation optimization: All CT scans at this facility use at least one of these dose optimization techniques: automated exposure control; mA and/or kV adjustment per patient size (includes targeted exams where dose is matched to clinical indication); or iterative reconstruction. Contrast material: ISOVUE; Contrast volume: 70 ml; Contrast route: INTRAVENOUS (IV); COMPARISON: CT ANGIO CHEST PE PROTOCOL 02/22/2022 7:53 PM FINDINGS: Pulmonary arteries: The pulmonary arteries enhance appropriately with no evidence of pulmonary embolism. Aorta: The aorta enhances appropriately without evidence of dissection or aneurysm. No mediastinal hematoma. Thyroid: The visualized thyroid gland demonstrates no gross abnormality. Lungs: No acute tracheobronchial abnormalities. Patchy mild alveolar opacities are present in the right upper lobe posterior segment, posterior and lingular portions of the left upper lobe, and left lower lobe perihilar distribution, concerning for multifocal pneumonia versus atelectasis. Small zone of consolidative density in the lingula with mild adjacent reticulonodular changes and a 4 mm nodule demonstrating central aerated cavitation on series 5, image 87. Differential considerations include septic emboli, cavitary pulmonary metastasis, macrobiotic cavitating lung nodules (seen with inflammatory bowel disease or rheumatoid arthritis), or possibly granulomatosis with polyangiitis (Te's granulomatosis). A 5 mm juxtapleural noncalcified pulmonary nodule is present in the anterior left upper lobe on series 5, image 55. This is moderately increased in size from 02/22/2022, previously about 3 mm. There is a 3.9 mm noncalcified pulmonary nodule in the lateral right upper lobe on image 42 appears unchanged from 02/22/2022. Granulomatous calcification in the posterior right lung base again noted. Pleural spaces: No pleural effusion. No pneumothorax. Heart: Heart size normal. No significant coronary artery calcification. No pericardial effusion. Mediastinal space: The esophagus is largely contracted but demonstrates no gross abnormality. Lymph nodes: No supraclavicular or axillary adenopathy. No mediastinal or hilar adenopathy. Gallbladder and bile ducts: Cholecystectomy. Bones/joints: No acute osseous abnormalities are identified. Soft tissues: The soft tissues of the chest wall demonstrate no acute abnormality. Right axillary surgical clips. IMPRESSION: 1. No evidence of pulmonary embolism or aortic dissection. 2. Multifocal bilateral alveolar opacities concerning for multifocal pneumonia, with a small zone of consolidation and adjacent reticulonodular changes in the lingular portion of the left upper lobe, with a 4 mm centrally cavitated juxtapleural nodule. Please see differential considerations above. 3. There is a 5 mm juxtapleural pulmonary nodule in the anterior left upper lobe which is increased in size from 02/22/2022. Recommend pulmonary referral. 4. Additional nonemergent findings detailed above.
--- NOTE | 2022-06-11 19:20 | PC.NURSE ---
notified rad of CTA order
[2022-06-11 19:27] LABS: Troponin I < 0.01 ng/ml (0.00-0.034)
[2022-06-11 19:56] VITALS: BP 147/98; PULSE 82; O2SAT 98
[2022-06-11 20:33] LABS: Hypochromasia 1+; Lymphocytes % 10 % (10-50); Microcytosis 1+; Monocytes % 5 % (2-9); Neutrophils % 85 % (42-76); Platelet Estimate Normal; Total Cells Counted 100
[2022-06-11 20:51] LABS: C-Reactive Protein 1.4 mg/L (0-4)
[2022-06-11 20:55] VITALS: BP 176/100; PULSE 79; O2SAT 98
[2022-06-11 21:03] LABS: Procalcitonin 0.033 ng/mL (0.0-2.0)
[2022-06-11 21:05] LABS: Erythrocyte Sedimentation Rate 79 mm/hr (0-30)
[2022-06-11 21:56] VITALS: BP 170/105; PULSE 65; O2SAT 98
--- NOTE | 2022-06-11 22:43 | PC.NURSE ---
Pt ambulatory to bathroom and back to bed. No other needs or complaints voiced. Pt and family updated on POC.
[2022-06-11 22:59] LABS: Troponin I < 0.01 ng/ml (0.00-0.034)
--- NOTE | 2022-06-11 23:00 | HMH.EDGENADL ---
ED Disposition Clinical Impression: Chest pain Qualifiers: Chest pain type: unspecified Qualified Code(s): R07.9 - Chest pain, unspecified Disposition: Home, Self-Care Condition on Discharge: Good Instructions: DI for Chest Pain Additional Instructions: call pcp and pul in am Referrals: Kevin Alejandre MD [Primary Care Provider] - Georges Lieberman MD [Physician] - - Critical Care Critical Care Time: No Attestation: On 06/11/22, the high probability of a clinically significant, sudden or life threatening deterioration of the following system(s) required my full and direct attention, intervention and personal management. The time I documented below is in addition to time spent performing reported procedures but includes the following listed in this critical care notation. Medical Decision Making - Medical Records Medical records reviewed: Yes: I reviewed the patient's medical records. - Benjamin Inquiry Pt receiving controlled substance: No Vital Signs: 06/11/22 18:43 06/11/22 18:55 06/11/22 19:56 Temperature 99.3 F Temperature Source Oral Pulse Rate 78 82 Pulse Rate [Right Radial] 85 Respiratory Rate 18 Blood Pressure 157/105 H 147/98 H Blood Pressure [Right Arm] 188/116 H Blood Pressure Mean [Right Arm] 140 Blood Pressure Source [Right Arm] Automatic Cuff Blood Pressure Position [Right Arm] Sitting 02 Sat by Pulse Oximetry 98 96 98 Oxygen Delivery Method Room Air Room Air Room Air 06/11/22 20:55 06/11/22 21:56 Temperature Temperature Source Pulse Rate 79 65 Pulse Rate [Right Radial] Respiratory Rate Blood Pressure 176/100 H 170/105 H Blood Pressure [Right Arm] Blood Pressure Mean [Right Arm] Blood Pressure Source [Right Arm] Blood Pressure Position [Right Arm] 02 Sat by Pulse Oximetry 98 98 Oxygen Delivery Method Room Air Room Air - Lab Data Lab results reviewed: Yes: I reviewed the patient's lab results. Lab Results 06/11/22 18:49: WBC 7.9, RBC 4.24, Hgb 11.8 L, Hct 36.8 L, MCV 86.7, MCH 27.8, MCHC 32.0, RDW 14.6, Plt Count 514 H, MPV 7.4, Neut % (Auto) 87.4 H, Lymph % (Auto) 10.5, [place] % (Auto) 1.7, Eos % (Auto) 0.2, Baso % (Auto) 0.3, Neut # (Auto) 6.9, Lymph # (Auto) 0.8, [place] # (Auto) 0.1, Eos # (Auto) 0.0, Baso # (Auto) 0.0, Total Counted 100, Neutrophils % (Manual) 85 H, Lymphocytes % (Manual) 10, Monocytes % (Manual) 5, Platelet Estimate Normal, Hypochromasia 1+, Microcytosis 1+ 06/11/22 18:49: Sodium 145, Potassium 3.7, Chloride 108 H, Carbon Dioxide 27, Anion Gap 13.7, BUN 15, Creatinine 0.60, Estimated Creat Clear 100, Estimated GFR 103, Est GFR ( Amer) 125, Glucose 140 H, Calcium 9.0, Troponin I < 0.01 06/11/22 18:49: ESR 79 H 06/11/22 18:49: C-Reactive Protein 1.4, Procalcitonin 0.033 06/11/22 22:25: Troponin I < 0.01 Result diagrams: 06/11/22 18:49 06/11/22 18:49 Orders (Tests/Meds): ED MEDICATIONS Generic Name Dose Route Start Last Admin Trade Name Freq PRN Reason Stop Dose Admin Sodium Chloride 10 ml 06/11/22 19:04 Sodium Chloride 0.9% 10ml Flush Syringe IV 07/11/22 19:03 NEEDED PRN Maintain IV Site Discontinued Medications Generic Name Dose Route Start Last Admin Trade Name Freq PRN Reason Stop Dose Admin Iopamidol 70 ml 06/11/22 19:41 06/11/22 19:43 Iopamidol-370 (76%);100ml Bottle IV 06/11/22 19:42 70 ml ONCE ONE Administration Ketorolac Tromethamine 30 mg 06/11/22 20:28 06/11/22 20:40 Ketorolac 30mg/Ml Vial IV 06/11/22 20:29 30 mg ONCE ONE Administration Morphine Sulfate 2 mg 06/11/22 22:25 06/11/22 22:31 Morphine 4mg/Ml Syringe IV 06/11/22 22:26 2 mg ONCE ONE Administration Ondansetron HCl 4 mg 06/11/22 20:28 06/11/22 20:40 Ondansetron 4mg/2ml Vial IV 06/11/22 20:29 4 mg ONCE ONE Administration Sodium Chloride 40 ml 06/11/22 19:41 06/11/22 19:43 0.9 % Sodium Chloride 50 Ml Vial IV 06/11/22 19:42 40 ml ONCE ONE Administratio
[2022-06-11 23:05] VITALS: BP 165/96; PULSE 62; RESP 14; TEMP 37.1; O2SAT 98
== END 2022-06-11 23:28 | disposition home or self-care (01) ==
PROVIDERS: Emergency Provider Emergency Medicine; PCP Emergency Medicine
DX: R07.9 Chest pain, unspecified (principal); R05.9 Cough, unspecified
CPT/HCPCS: 71046; 71275; 80048; 84145; 84484; 85007; 85025; 85651; 86140; 93005; 96374; 96375; 99285; J2405; Q9967

== ENCOUNTER → 2022-06-13 18:06 | Outpatient (CLI) | payer OTHER, SELFPAY ==
[2022-06-13 15:06] LABS: Barbiturates Screen,Urine Negative ng/ml (<200)
[2022-06-13 15:07] LABS: Amphetamine/Metha Screen,Urine Negative ng/ml (<1000); Benzodiazepines Screen,Urine Positive ng/ml (<200)
[2022-06-13 15:09] LABS: Cannabinoid Screen,Urine Negative ng/ml (<50)
[2022-06-13 15:10] LABS: Cocaine Screen,Urine Negative ng/ml (<300); Methadone Screen,Urine Negative ng/ml (<300)
[2022-06-13 15:11] LABS: Opiate Screen,Urine Negative ng/ml (<300); Phencyclidine Screen,Urine Negative ng/ml (<25)
== END ==
PROVIDERS: PCP Emergency Medicine; Visit Provider Emergency Medicine
DX: Z79.899 Other long term (current) drug therapy (principal)
CPT/HCPCS: 80305

== ENCOUNTER 2022-07-04 15:42 | Emergency (ER) | payer OTHER, SELFPAY ==
--- NOTE | 2022-07-04 15:39 | ECG_ITS ---
APPROVED REPORT Exam: Resting ECG HR:86 bpm ECG Measurements Heart Rate 86 AXES RI 129 P 74 QRSd 82 QRS -26 QT 330 T 31 QTc 374 Conclusion SINUS RHYTHM Poor R wave progression, unchanged from prior ABNORMAL ECG UNCONFIRMED REPORT Electronically signed by : Taiwo Yanes MD 07/04/2022 17:36:20
[2022-07-04 15:45] VITALS: BMI 21.6
--- NOTE | 2022-07-04 15:45 | XR_ITS ---
FINAL REPORT CLINICAL HISTORY: CHEST PRESSURE COMPARISON: 06/11/2022 FINDINGS: Two views of the chest were obtained. The heart size and pulmonary vascularity are within normal limits. The mediastinum is normal. There is improvement in the left lung opacities. There is no new abnormality. The right lung is clear. There is no pneumothorax. The bony thorax is intact. IMPRESSION: Improvement in the left lung opacities. No new abnormality. Reviewed, Interpreted and Dictated by Nicola Lopez III, MD Transcribed by Racheal Lemus Authenticated and [facility]
--- NOTE | 2022-07-04 15:50 | PC.NURSE ---
IV established and blood sent to the lab
[2022-07-04 16:00] VITALS: BP 146/107; PULSE 81; RESP 14; O2SAT 99
[2022-07-04 16:05] VITALS: BP 174/124; PULSE 90; RESP 17; TEMP 37.1; O2SAT 99; BMI 21.6
[2022-07-04 16:07] LABS: Basophils # 0.1 K/mm3 (0-0.2); Basophils % 0.7 % (0.1-2.0); Eosinophils % 0.6 % (0.1-12.0); Hematocrit 38.6 % (37.0-47.0); Hemoglobin 12.6 g/dL (12.2-16.2); Lymphocytes # 1.5 K/mm3 (0.7-4.5); Lymphocytes % 21.8 % (10-50); Mean Corpuscular HGB Conc 32.8 g/dL (31.8-35.4); Mean Corpuscular Hemoglobin 28.4 pg (27.0-31.2); Mean Corpuscular Volume 86.7 fl (81-99); Mean Platelet Volume 7.3 fl (7.4-10.4); Monocytes # 0.3 K/mm3 (0.1-1.0); Monocytes % 4.2 % (1.7-9.3); Neutrophils # 4.8 K/mm3 (1.8-7.8); Neutrophils % 72.6 % (37.0-80.0); Platelet Count 516 K/mm3 (142-424); Red Blood Count 4.45 M/mm3 (4.20-5.40); Red Cell Distribution Width 15.3 % (11.5-17.5); White Blood Count 6.7 K/mm3 (4.8-10.8)
--- NOTE | 2022-07-04 16:08 | PC.NURSE ---
pt return from radiology
[2022-07-04 16:12] LABS: Anion Gap 10.5 mEq/L (5-15); Blood Urea Nitrogen 12 mg/dl (7-17); Calcium 9.3 mg/dl (8.4-10.2); Carbon Dioxide 28 mmol/L (22.0-30.0); Chloride 107 mmol/L (98-107); Creatinine Clearance Estimated 117 mL/min (50-200); Estimated Glomerular Filt Rate 128 ml/min (>60); GFR (African American) 154 ML/MIN (>60); Glucose 124 mg/dl (74-100); Potassium 3.5 mmoL/L (3.5-5.1); Sodium 142 mmol/L (136-145)
[2022-07-04 16:25] LABS: Troponin I < 0.01 ng/ml (0.00-0.034)
[2022-07-04 16:30] VITALS: BP 208/120; PULSE 81; RESP 15; O2SAT 100
--- NOTE | 2022-07-04 16:39 | HMH.EDGENADL ---
Discharge Plan Disposition Patient Disposition: Home, Self-Care Condition: Good Prescriptions Prescriptions: New prednisone 20 mg tablet 20 mg PO BID 5 Days Qty: 10 0RF albuterol sulfate 90 mcg/actuation HFA aerosol inhaler 2 inh inhalation Q6H PRN (Reason: shortness of breath or wheezing) Qty: 6.7 0RF No Action clonazepam 0.5 mg tablet 0.5 mg PO BID PRN (Reason: Anxiety) Qty: 60 0RF oxycodone 5 mg tablet 5 mg PO TID PRN (Reason: pain) Qty: 90 0RF gabapentin 300 mg capsule 300 mg PO TID Qty: 90 0RF lisinopril 10 mg tablet 10 mg PO DAILY Qty: 30 0RF Referrals Follow up/Referrals: Kevin Alejandre MD [Primary Care Provider] - See instructions Activity Restrictions/Add. Instructions Additional Instructions/Restrictions: Return for increasing shortness of air or other concerns. Tylenol or Motrin as needed for chest wall discomfort. Use your inhaler as directed for shortness of air. Clinical Impressions Clinical Impression: Acute exacerbation of chronic obstructive pulmonary disease (COPD) Discharge ED Provider: Guillermo Skinner General Adult HPI General Chief complaint: Shortness of Breath/Dyspnea Stated complaint: CHEST PAIN Time Seen by Provider: 07/04/22 16:31 Mode of Arrival: Ambulatory Source of Information: Patient Limitations: No Limitations Description of Symptoms (Recalled from ER Triage Doc. by RN): pt to ed c/o left rib pain and shortness of breath. pt states she had bilateral pneumonia x3 weeks ago and has not recovered. pt states her chest has felt heavy x3 days and she has had some diarrhea x3 days. pt reports a non-productive cough. History of Present Illness HPI narrative: Presents with a 2-day history of shortness of air. She notes fever and nonproductive cough. She has some right-sided chest discomfort and states she does have a history of rib fracture within the last month or so to this area. Related Data Previous Rx's Medication Instructions Recorded clonazepam 0.5 mg tablet 0.5 mg PO BID PRN Anxiety #60 tabs 06/13/22 gabapentin 300 mg capsule 300 mg PO TID #90 caps 06/13/22 lisinopril 10 mg tablet 10 mg PO DAILY #30 tabs 06/13/22 oxycodone 5 mg tablet 5 mg PO TID PRN pain #90 tabs 06/13/22 albuterol sulfate 90 mcg/actuation 2 inh inhalation Q6H PRN shortness 07/04/22 aerosol inhaler of breath or wheezing #6.7 grams prednisone 20 mg tablet 20 mg PO BID 5 days #10 tabs 07/04/22 Allergies Allergy/AdvReac Type Severity Reaction Status Date / Time amoxicillin [From Augmentin] Allergy Intermediate I-RASH Verified 06/08/22 14:53 clavulanic acid Allergy Intermediate I-RASH Verified 06/08/22 14:53 [From Augmentin] Sulfa (Sulfonamide Allergy Intermediate I-RASH Verified 06/08/22 14:53 Antibiotics) sulfadiazine AdvReac Intermediate Vomiting Verified 06/13/22 10:46 PFSH PFSH Medical History (Updated 07/04/22 @ 18:08 by Guillermo Skinner MD) Allergic rhinitis Elevated troponin History of chemotherapy Hx of malignant melanoma Hypertension Leg cramps Right hip pain Unstable angina Vitamin D deficiency Family History (Updated 06/13/22 @ 10:48 by PRIYA Lomeli) Mother Cancer Diabetes Heart attack Osteoporosis Social History Smoking Status: Never smoker alcohol intake: never substance use type: former substance user current occupational status: unemployed Travel in the last 8 weeks: None household members: other housing: apartment caffeine: Yes ROS Obtained: Yes All systems reviewed & no additional complaints except as documented Physical Exam General General appearance: alert and in no apparent distress Head Head exam: atraumatic Eye Eye exam: Present normal appearance ENT ENT exam: Present normal exam Neck Neck exam: Present normal inspection Chest Chest inspection: Present other (Reproducible tenderness to the right chest wall at the anterior axillary
[2022-07-04 17:00] VITALS: BP 175/114; PULSE 76; RESP 13; O2SAT 98
[2022-07-04 17:21] LABS: D-Dimer 0.39 ug/mL (0.0-0.5)
[2022-07-04 17:27] LABS: NT Pro Brain Natriuretic Pep. 81.9 pg/mL (0-125)
[2022-07-04 17:30] VITALS: BP 162/115; PULSE 69; RESP 19; O2SAT 98
--- NOTE | 2022-07-04 17:40 | PC.NURSE ---
rad at bedside
--- NOTE | 2022-07-04 18:03 | PC.NURSE ---
ED MD AT BEDSIDE FOR REEVALUATION
[2022-07-04 18:55] VITALS: BP 155/103; PULSE 61; RESP 19; TEMP 37.1; O2SAT 98
== END 2022-07-04 19:00 | disposition home or self-care (01) ==
PROVIDERS: Emergency Provider Emergency Medicine; PCP Emergency Medicine
DX: J44.1 Chronic obstructive pulmonary disease with (acute) exacerbation (principal); Z79.899 Other long term (current) drug therapy; F41.9 Anxiety disorder, unspecified; I10 Essential (primary) hypertension; I20.0 Unstable angina
CPT/HCPCS: 71046; 80048; 83880; 84484; 85025; 85378; 93005; 96374; 99284

== ENCOUNTER → 2022-07-11 16:36 | Outpatient (CLI) | payer OTHER, SELFPAY ==
[2022-07-11 16:49] LABS: Amphetamine/Metha Screen,Urine Negative ng/ml (<1000)
[2022-07-11 16:50] LABS: Barbiturates Screen,Urine Negative ng/ml (<200); Benzodiazepines Screen,Urine Negative ng/ml (<200)
[2022-07-11 16:51] LABS: Cannabinoid Screen,Urine Negative ng/ml (<50); Cocaine Screen,Urine Negative ng/ml (<300)
[2022-07-11 16:52] LABS: Methadone Screen,Urine Negative ng/ml (<300)
[2022-07-11 16:53] LABS: Opiate Screen,Urine Negative ng/ml (<300); Phencyclidine Screen,Urine Negative ng/ml (<25)
== END ==
PROVIDERS: PCP Emergency Medicine; Visit Provider Emergency Medicine
DX: Z79.899 Other long term (current) drug therapy (principal)
CPT/HCPCS: 80305

== ENCOUNTER → 2022-07-30 07:58 | Outpatient (CLI) | payer OTHER, SELFPAY ==
--- NOTE | 2022-07-30 08:00 | CA_ITS ---
FINAL REPORT TECHNIQUE: Grayscale, color Doppler and duplex Doppler ultrasound of the kidneys, aorta and renal arteries was performed. Multiple velocities were measured. CLINICAL HISTORY: HTN FINDINGS: Aorta velocity: 70.1 cm/sec Right kidney: 9.4 cm. No evidence of hydronephrosis or mass. Right intrarenal RI: 0.65 Right renal artery velocity: 239 cm/sec. Right RAR (Renal artery-Aortic Ratio): 3.4 Left Kidney: 10.2 cm. No evidence of hydronephrosis or mass. Left intrarenal RI: 0.65 Left renal artery velocity: 162 cm/sec. Left RAR (Renal Artery-Aortic Ratio): 2.3 IMPRESSION: No evidence of significant left renal artery stenosis. Greater than 60% right renal artery stenosis. Could be further evaluated with catheter angiogram. Reviewed, Interpreted and Dictated by Nicola Lopez III, MD Transcribed by Cynthia Bethea Authenticated and [facility]
== END ==
PROVIDERS: PCP Emergency Medicine; Visit Provider Emergency Medicine
DX: I10 Essential (primary) hypertension (principal)
CPT/HCPCS: 93976

== ENCOUNTER 2022-08-19 18:57 | Observation (INO) | payer OTHER, SELFPAY ==
[2022-08-19] VITALS (8 sets, daily range): BP systolic 98–116; BP diastolic 57–73; PULSE 65–84; RESP 16; TEMP 36.8–37; O2SAT 95–100; BMI 21.9; BMI 25.0
--- NOTE | 2022-08-19 | ECG_ITS ---
APPROVED REPORT Exam: Resting ECG HR:73 bpm ECG Measurements Heart Rate 73 AXES CO 141 P 65 QRSd 88 QRS 2 QT 400 T 44 QTc 426 Conclusion SINUS RHYTHM POSSIBLE LEFT ATRIAL ENLARGEMENT [-0.1mV P-WAVE IN V1/V2] SEPTAL MYOCARDIAL INFARCTION , OF INDETERMINATE AGE [40+ ms Q WAVE IN V1/V2] ABNORMAL ECG UNCONFIRMED REPORT Electronically signed by : Taiwo Yanes MD 08/21/2022 21:13:47
--- NOTE | 2022-08-19 19:04 | ECG_ITS ---
APPROVED REPORT Exam: Resting ECG HR:82 bpm ECG Measurements Heart Rate [address] 137 P 61 QRSd 94 QRS 17 QT 378 T 57 QTc 416 Conclusion SINUS RHYTHM LOW QRS VOLTAGE IN PRECORDIAL LEADS [QRS DEFLECTION < 1.0 mV IN CHEST LEADS] SEPTAL MYOCARDIAL INFARCTION , OF INDETERMINATE AGE [40+ ms Q WAVE IN V1/V2] ABNORMAL ECG UNCONFIRMED REPORT Electronically signed by : Taiwo Yanes MD 08/21/2022 21:14:03
--- NOTE | 2022-08-19 19:04 | XR_ITS ---
PROCEDURE INFORMATION: Exam: XR Chest Exam date and time: 08/19/2022 7:29 PM Age: 57 years old Clinical indication: Sternal or substernal pain and left-sided; Additional info: Chest pain TECHNIQUE: Imaging protocol: Radiologic exam of the chest. Views: 1 view. COMPARISON: CR XR CHEST 2V 07/04/2022 3:56 PM FINDINGS: Lungs: Emphysema. Granulomatous change. No consolidation. Pleural spaces: Unremarkable. No pleural effusion. No pneumothorax. Heart/Mediastinum: Unremarkable. No cardiomegaly. Bones/joints: Unremarkable. IMPRESSION: No acute findings.
--- NOTE | 2022-08-19 19:11 | PC.NURSE ---
RAD at for CXR
--- NOTE | 2022-08-19 19:20 | PC.NURSE ---
report given to sanjurn
[2022-08-19 19:30] LABS: Basophils % 0.7 % (0.1-2.0); Eosinophils # 0.2 K/mm3 (0.0-0.4); Eosinophils % 2.7 % (0.1-12.0); Hematocrit 34.1 % (37.0-47.0); Lymphocytes # 1.8 K/mm3 (0.7-4.5); Lymphocytes % 30.3 % (10-50); Mean Corpuscular HGB Conc 32.4 g/dL (31.8-35.4); Mean Corpuscular Volume 86.5 fl (81-99); Mean Platelet Volume 7.5 fl (7.4-10.4); Monocytes # 0.3 K/mm3 (0.1-1.0); Monocytes % 5.6 % (1.7-9.3); Neutrophils # 3.7 K/mm3 (1.8-7.8); Neutrophils % 60.6 % (37.0-80.0); Platelet Count 297 K/mm3 (142-424); Red Blood Count 3.94 M/mm3 (4.20-5.40); Red Cell Distribution Width 14.3 % (11.5-17.5); White Blood Count 6.1 K/mm3 (4.8-10.8)
[2022-08-19 19:31] LABS: Chloride 100 mmol/L (98-107); Potassium 3.8 mmoL/L (3.5-5.1); Sodium 141 mmol/L (136-145)
[2022-08-19 19:34] LABS: Anion Gap 10.8 mEq/L (5-15); Blood Urea Nitrogen 14 mg/dl (7-17); Calcium 8.7 mg/dl (8.4-10.2); Carbon Dioxide 34 mmol/L (22.0-30.0); Creatinine Clearance Estimated 99 mL/min (50-200); Estimated Glomerular Filt Rate 103 ml/min (>60); GFR (African American) 125 ML/MIN (>60); Glucose 139 mg/dl (74-100)
[2022-08-19 19:51] LABS: Troponin I < 0.01 ng/ml (0.00-0.034)
--- NOTE | 2022-08-19 20:33 | HMH.EDCP ---
Discharge Plan Disposition Patient Disposition: Admitted as Observation Chief Complaint: Chest Pain Clinical Impressions Clinical Impression: Chest pain Discharge ED Provider: Kevin Alejandre Chest Pain HPI General Chief Complaint: Chest Pain Stated Complaint: chest pain Time Seen by Provider: 08/19/22 20:00 Mode of Arrival: Wheelchair Source of Information: Patient and Medical Record Limitations: No Limitations Description of Symptoms (Recalled from ER Triage Doc. by RN): Pt reports chest pain that she woke up with this morning. Pt reports pain has gotten worse t/o the day. Pt describes pain as tightness in nature. Pt reports used her inhaler but it didn't help. History of Present Illness HPI narrative: chest pressure which awoke pt this am - has possible renal art stenosis - has seen card in past and reported was supposed to have heart cath MD complaint: chest pain indicative of cardiac Onset (ago): hour(s) Duration: constant Activity at onset: awoke with symptoms Pain location: substernal Severity: moderate Quality: heaviness Pain radiation: none Relieving factors: nothing Risk Factors for CAD: Family Hx of CAD Treatments prior to or on arrival for Cardiac Chest Pain: none PARUL Score for Non-Stemi Age of Patient: 50-59 years old Heart Rate: 70-89 bpm Systolic Blood Pressure: 100-119 mmHg Serum Creatinine: 0.40-0.79 mg/dl CHF Kill[place] Class: I-No CHF Other Risk Factors: None Non-Stemi Risk Score: 97 Related Data Prior Cardiac Testing/Procedures: Echocardiogram On Oral Contraceptives: No Home Medications Medication Instructions Recorded Confirmed bisoprolol 5 1 tab PO DAILY High blood pressure 08/19/22 08/19/22 mg-hydrochlorothiazide 6.25 mg tablet gabapentin 300 mg capsule 300 mg PO TID Pain 08/19/22 08/19/22 Previous Rx's Medication Instructions Recorded albuterol sulfate 90 mcg/actuation 2 inh inhalation Q6H PRN shortness 07/04/22 aerosol inhaler of breath or wheezing #6.7 grams clonazepam 0.5 mg tablet 0.5 mg PO BID PRN Anxiety #60 tabs 08/09/22 oxycodone 5 mg tablet 5 mg PO TID PRN pain #90 tabs 08/09/22 Allergies Allergy/AdvReac Type Severity Reaction Status Date / Time amoxicillin [From Augmentin] Allergy Intermediate I-RASH Verified 07/11/22 10:03 clavulanic acid Allergy Intermediate I-RASH Verified 07/11/22 10:03 [From Augmentin] Sulfa (Sulfonamide Allergy Intermediate I-RASH Verified 07/11/22 10:03 Antibiotics) sulfadiazine AdvReac Intermediate Vomiting Verified 07/11/22 10:03 PFSH PFS Medical History Allergic rhinitis Elevated troponin History of chemotherapy Hx of malignant melanoma Hypertension Leg cramps Right hip pain Unstable angina Vitamin D deficiency Family History Mother Cancer Diabetes Heart attack Osteoporosis Social History Smoking Status: Never smoker alcohol intake: never substance use type: former substance user current occupational status: unemployed Travel in the last 8 weeks: None household members: other housing: apartment caffeine: Yes ROS Obtained: Yes All systems reviewed & no additional complaints except as documented Cardiovascular Cardiovascular: Reports as per HPI, Reports chest pain at rest and Reports dyspnea Respiratory Respiratory: Reports dyspnea Physical Exam General General appearance: alert Head Head exam: normocephalic Eye Eye exam: Present PERRL and EOMI ENT ENT exam: Present mucous membranes moist Neck Neck exam: Present trachea midline Chest Chest inspection: Absent tenderness Respiratory Respiratory exam: Present normal lung sounds bilaterally Cardiovascular Cardiovascular exam: Present regular rate and systolic murmur Abdominal Exam Abdominal exam: Present soft Extremities Exam Extremities exam: Present full ROM; Absent c
--- NOTE | 2022-08-19 20:48 | PC.NURSE ---
hospitalist at bedside
[2022-08-19 20:56] LABS: Coronavirus 19, PCR Not Detected (NotDetected); Influenza A, PCR Not Detected (NotDetected); Influenza B, PCR Not Detected (NotDetected)
--- NOTE | 2022-08-19 22:01 | PC.NURSE ---
PT ARRIVED TO FLOOR VIA WHEELCHAIR @ 2132.
--- NOTE | 2022-08-19 22:28 | EXP.HP ---
History of Present Illness *Admission Date: 08/19/22 *Reason for visit:: chest pain *History of present illness: History and Physical for admission I saw and examined this 57 y.o. female in the ED for admission to the Med/Surg Unit. Upon examination of this patient she appeared to be in no acute distress and nontoxic in nature. This patient presented to the ED with chest pain which awakened her this morning. Patient advised that she was unable to completely relieve the pain. Stated that she had the pain in the past and was scheduled for a heart cath but did not have it done. She also advised that she was told she may need a pacemaker because her heart rate gets down in the 30's. She advises the pain to be constant, sharp and 8/10 but nonradiating. Non-stemi risk score = 97. Evaluation in the ED revealed stable blood pressures, normal troponin and unremarkable EKG. We will place her on the med/surg unit with telemetry monitoring, serial troponins, cardiology consult and continue treatment plan and monitoring. PFSH PFSH Medical History Allergic rhinitis Elevated troponin History of chemotherapy Hx of malignant melanoma Hypertension Leg cramps Right hip pain Unstable angina Vitamin D deficiency Surgical History History of cholecystectomy History of hysterectomy Family History Mother Cancer Diabetes Heart attack Osteoporosis Social History Smoking Status: Never smoker alcohol intake: never substance use type: former substance user current occupational status: unemployed Travel in the last 8 weeks: None household members: other housing: apartment caffeine: Yes Review of Systems Constitutional Constitutional: Reports system reviewed and no additional complaints, except as documented, Reports as per HPI, Denies frequent falls, Denies headache(s) and Denies weakness Eyes Eyes: Reports system reviewed and no additional complaints, except as documented, Reports as per HPI and Denies blurry vision ENT Ears, Nose, Mouth, and Throat: Reports system reviewed and no additional complaints, except as documented, Reports as per HPI, Denies dental pain, Denies otalgia and Denies headache(s) *Cardiovascular Cardiovascular: Reports system reviewed and no additional complaints, except as documented, Reports as per HPI, Reports chest pain, Reports chest pain at rest, Reports chest pain with activity, Reports dyspnea, Reports dyspnea on exertion, Denies leg edema and Denies lightheadedness *Respiratory Respiratory: Reports system reviewed and no additional complaints, except as documented, Reports as per HPI, Denies cough, Reports dyspnea and Reports dyspnea on exertion *Gastrointestinal Gastrointestinal: Reports system reviewed and no additional complaints, except as documented, Reports as per HPI, Denies abdominal pain, Denies nausea and Denies vomiting *Genitourinary Genitourinary: Reports system reviewed and no additional complaints, except as documented, Reports as per HPI and Denies difficulty voiding *Musculoskeletal Musculoskeletal: Reports system reviewed and no additional complaints, except as documented, Reports as per HPI, Denies abnormal gait, Denies arthralgias and Denies back pain Integumentary/Breasts Skin/Breast: Reports system reviewed and no additional complaints, except as documented, Reports as per HPI and Denies rash *Neurologic Neurologic: Reports system reviewed and no additional complaints, except as documented, Reports as per HPI, Denies abnormal gait, Denies abnormal speech, Denies frequent falls, Denies headache(s) and Denies weakness Psychiatric Psychiatric: Reports system reviewed and no additional complaints, except as documented, Reports as per HPI, Denies anxiety, Denies hopelessness and Denies suici
[2022-08-19 22:42] LABS: Troponin I < 0.01 ng/ml (0.00-0.034)
[2022-08-20] VITALS (22 sets, daily range): BP systolic 88–136; BP diastolic 56–74; PULSE 60–80; RESP 14–20; TEMP 36.6–37.2; O2SAT 96–100; BMI 25.1
[2022-08-20 02:03] LABS: Troponin I < 0.01 ng/ml (0.00-0.034)
[2022-08-20 02:17] LABS: NT Pro Brain Natriuretic Pep. 53.1 pg/mL (0-125)
--- NOTE | 2022-08-20 06:00 | CA_ITS ---
APPROVED REPORT EXAM: Comprehensive 2D, Doppler, and color-flow Echocardiogram Costume Mistress: ALAINA Raymond, RVS Ht: 5 ft 4 in Wt: 151lbs BSA: 1.74 BP: 113/72 mmHg Indications: CP, HTN M-Mode Dimensions RVDd 2.45 cm (0.9-2.6) LA Diam 3.09 cm (1.9-4.0) LVDd 4.43 cm (3.5-5.7) Ao Diam 2.56 cm (2.0-3.7) LVDs 3.05 cm (3.5-5.7) IVSd 0.77 cm (0.6-1.1) PWd 0.80 cm (0.6-1.1) EF (Teich) 59.10% EPSs 0.24 cm FS 31.20% EDV (Teich) 89.10 mL ESV (Teich) 36.40 mL LV Diastology E Decel Time 243.00 (160-240 msec) E/A Ratio 2.01 Mitral Valve MV A Velocity 34.00 (40-130 cm/s) E/A Ratio 2.01 MV Decel. Time 243.00 (160-240 ms) Conclusion 1. Limited echocardiogram was performed to evaluate left ventricular systolic function. 2. Normal left ventricular size preserved left ventricular systolic function, estimated ejection fraction 55% with no regional wall motion abnormality. 3. No significant pericardial effusion noted. Electronically signed by : Paulo Clay MD 08/20/2022 16:38:53
--- NOTE | 2022-08-20 06:28 | PC.NURSE ---
pt has rested well since arriving to floor, has had no complaints of chest pain, has complained of pain in the lower back and was treated per DEC, telemetry shows NSR, SBP 100-113, HR 70-79
[2022-08-20 06:48] LABS: Basophils % 0.2 % (0.1-2.0); Eosinophils # 0.2 K/mm3 (0.0-0.4); Eosinophils % 4.1 % (0.1-12.0); Hematocrit 33.1 % (37.0-47.0); Hemoglobin 10.9 g/dL (12.2-16.2); Lymphocytes # 1.3 K/mm3 (0.7-4.5); Lymphocytes % 28.8 % (10-50); Mean Corpuscular Hemoglobin 28.1 pg (27.0-31.2); Mean Corpuscular Volume 85.2 fl (81-99); Mean Platelet Volume 7.8 fl (7.4-10.4); Monocytes # 0.3 K/mm3 (0.1-1.0); Monocytes % 6.7 % (1.7-9.3); Neutrophils # 2.8 K/mm3 (1.8-7.8); Neutrophils % 60.1 % (37.0-80.0); Platelet Count 323 K/mm3 (142-424); Red Blood Count 3.89 M/mm3 (4.20-5.40); Red Cell Distribution Width 14.3 % (11.5-17.5); White Blood Count 4.6 K/mm3 (4.8-10.8)
[2022-08-20 06:52] LABS: Chloride 104 mmol/L (98-107); Sodium 141 mmol/L (136-145)
[2022-08-20 06:53] LABS: Potassium 4.1 mmoL/L (3.5-5.1)
[2022-08-20 06:55] LABS: Alanine Aminotransferase 28 U/L (12-78); Albumin Level 3.4 g/dl (3.5-5.0); Albumin/Globulin Ratio 1.1 (1.1-1.8); Alkaline Phosphatase 93 U/L (38-126); Anion Gap 9.1 mEq/L (5-15); Aspartate Amino Transferase 32 U/L (14-36); Blood Urea Nitrogen 14 mg/dl (7-17); Carbon Dioxide 32 mmol/L (22.0-30.0); Cholesterol 234 mg/dl (140-200); Creatinine Clearance Estimated 113 mL/min (50-200); Estimated Glomerular Filt Rate 103 ml/min (>60); GFR (African American) 125 ML/MIN (>60); Glucose 106 mg/dl (74-100); Total Protein,Serum 6.4 g/dl (6.3-8.2); Triglycerides 148 mg/dl (30-150); VLDL Cholesterol 30 mg/dL (0-40)
[2022-08-20 06:56] LABS: Calcium 8.1 mg/dl (8.4-10.2); Chol/HDL Ratio 4.8 (1-3.5); HDL Cholesterol 49 mg/dl (40-60); Magnesium 1.9 mg/dl (1.6-2.3)
[2022-08-20 06:58] LABS: Bilirubin,Total < 0.1 mg/dl (0.2-1.3)
[2022-08-20 07:07] LABS: Direct LDL Cholesterol 125.98 mg/dL (100-129)
--- NOTE | 2022-08-20 08:41 | HMH.PHAINT1 ---
Pharmacy Intervention Comments: MEDICATION RECONCILIATION COMPLETED ON PATIENT USING EXTERNAL FILL HISTORY FROM PHARMACY AND STEVE REPORT. -CORNELIA GILLIAM, BRENDAD
--- NOTE | 2022-08-20 09:39 | EXP.PN ---
Subjective *Date: 08/20/22 *Time: 09:39 Interval history: Date of service 08/20/2022 The patient reports improved chest pain since admission. She denies acute palpitations or dyspnea. I am accompanied by multiple members of the MDR team to evaluate the patient. Nursing staff report that she remains afebrile with stable vital signs and improved blood pressures. She is saturating appropriately on room air her ED EKG was abnormal. Her troponin trend is negative. She reports a chronic history of chest pain with previous recommendations for intervention and the patient reports fear of the procedure so she canceled. She describes significant stressors in her life including her mother who is dying from lung cancer. She denies tobacco use history but has a history of illicit substance use. She reports that she has never been prescribed a statin. July 30 renal duplex identified 60% right renal artery stenosis. Exam Data for Last 24 hours Vital signs and Labs for Last 24 Hours: Temp Pulse Resp BP Pulse Ox 98.3 F 76 14 115/74 100 08/20/22 08:00 08/20/22 08:00 08/20/22 08:00 08/20/22 08:00 08/20/22 08:00 Laboratory Results - last 24 hr 08/19/22 18:59: WBC 6.1, RBC 3.94 L, Hgb 11.0 L, Hct 34.1 L, MCV 86.5, MCH 28.0, MCHC 32.4, RDW 14.3, Plt Count 297, MPV 7.5, Neut % (Auto) 60.6, Lymph % (Auto) 30.3, [place] % (Auto) 5.6, Eos % (Auto) 2.7, Baso % (Auto) 0.7, Neut # (Auto) 3.7, Lymph # (Auto) 1.8, [place] # (Auto) 0.3, Eos # (Auto) 0.2, Baso # (Auto) 0.0 08/19/22 18:59: Sodium 141, Potassium 3.8, Chloride 100, Carbon Dioxide 34 H, Anion Gap 10.8, BUN 14, Creatinine 0.60, Estimated Creat Clear 99, Estimated GFR 103, Est GFR ( Amer) 125, Glucose 139 H, Calcium 8.7, Troponin I < 0.01 08/19/22 20:45: SARS-CoV-2 (PCR) Not detected, Influenza A Untype (PCR) Not detected, Influenza Type B (PCR) Not detected 08/19/22 22:15: Troponin I < 0.01 08/20/22 01:20: Troponin I < 0.01 08/20/22 01:20: NT-Pro-B Natriuret Pep 53.1 08/20/22 06:38: WBC 4.6 L, RBC 3.89 L, Hgb 10.9 L, Hct 33.1 L, MCV 85.2, MCH 28.1, MCHC 33.0, RDW 14.3, Plt Count 323, MPV 7.8, Neut % (Auto) 60.1, Lymph % (Auto) 28.8, [place] % (Auto) 6.7, Eos % (Auto) 4.1, Baso % (Auto) 0.2, Neut # (Auto) 2.8, Lymph # (Auto) 1.3, [place] # (Auto) 0.3, Eos # (Auto) 0.2, Baso # (Auto) 0.0 08/20/22 06:38: Sodium 141, Potassium 4.1, Chloride 104, Carbon Dioxide 32 H, Anion Gap 9.1, BUN 14, Creatinine 0.60, Estimated Creat Clear 113, Estimated GFR 103, Est GFR ( Amer) 125, Glucose 106 H D, Calcium 8.1 L, Magnesium 1.9, Total Bilirubin < 0.1 L, AST 32, ALT 28, Alkaline Phosphatase 93, Total Protein 6.4, Albumin 3.4 L, Globulin 3.0, Albumin/Globulin Ratio 1.1, Triglycerides 148, Cholesterol 234 H, LDL Cholesterol Direct 125.98, VLDL Cholesterol 30, HDL Cholesterol 49, Cholesterol/HDL Ratio 4.8 H, TSH 2.00 I & O for Last 24 hours: Intake & Output 08/17/22 08/18/22 08/19/22 08/20/22 23:59 23:59 23:59 23:59 Intake Total 120 / 120 Balance 120 / 120 Weight 68.096 kg 68.521 kg Constitutional Constitutional: no acute distress, thin and cooperative *Routine HEENT Exam Head: Present normocephalic Eye: Present EOMI and PERRL ENT: Present mucous membranes moist *Routine Neck Exam Neck: Present supple and trachea midline; Absent JVD, carotid bruit, lymphadenopathy or thyromegaly *Routine Respiratory Exam Respiratory: Present CTA bilaterally, normal respiratory effort and symmetric chest movement; Absent respiratory distress *Routine Cardiovascular Exam Cardiovascular: Present RRR, Normal S1 and Normal S2 *Routine Abdominal Exam Abdominal: Present soft and normoactive bowel sounds; Absent tenderness *Routine Extremities Exam Extremities: Absent cyanosis, clubbing or edema *Routine Skin Exam Skin: Present warm; Absent rash *Routine Neurological Exam Neurological: Present alert, oriented X3, vision grossly intact, hearing grossly intact and normal speech; Absent sensory deficit or motor defi
--- NOTE | 2022-08-20 09:52 | IR_ITS ---
APPROVED REPORT Patient Location: Inpatient PROCEDURES Left heart catheterization Left ventriculogram Selective coronary angiogram Bilateral selective renal angiogram INDICATION Unstable angina, Abnormal renal duplex suspect renal artery stenosis SCAI INDICATION Clinical history : 57-year-old lady presenting to multiple hospitals with recalcitrant chest pain which is now presumed to be unstable angina based on an abnormal renal duplex suggesting renal artery stenosis. Because of the abnormal renal duplex and numerous visits to the emergency department was decided to proceed with coronary angiography given a noninvasive test suggested atherosclerotic process Informed consent was obtained prior to the procedure. COMPLICATIONS None Estimated Blood Loss: Less than 10 ML TECHNIQUE One percent lidocaine used to anesthetize the right anterior aspect of the wrist. The right radial artery was accessed via the Seldinger technique. A 6 Setswana sheath was placed in the right radial artery. 2.5 mg of verapamil, 800 mcg of nitroglycerin, 1mg Lidocaine and 5000 U Heparin were given through the arterial sheath. The papa catheter was also used to perform left heart catheterization, left ventriculogram and selective coronary angiogram. At the end of the procedure the sheath was removed good hemostasis was achieved using Traclet band, patient was transferred to the postop holding area in stable condition. ANGIOGRAPHIC RESULTS The left main artery Normal The left anterior descending artery Normal The circumflex artery Normal The right coronary artery Dominant normal The LOPEZ ventriculogram reveals Normal 65% The left ventricular end-diastolic pressure 10 mmHg Right renal artery singular normal Left renal artery singular normal IMPRESSION Normal coronary arteries Normal ejection fraction Normal left ventricular end-diastolic pressure Normal renal arteries PLAN 1. Treatment of noncardiac chest pain 2. Risk factor modification Electronically signed by : Davon Paiz MD 08/20/2022 11:21:30
--- NOTE | 2022-08-20 09:54 | EXP.CARD.CON ---
History of Present Illness History of Present Illness Consult date: 08/20/22 Requesting physician: Navjot Andrews Consult reason: chest pain Chief complaint: chest pain History of present illness: This is a 57-year-old white female who presented to the emergency department with complaints of chest pain. The patient states that her chest pain started a few days ago but woke her up from sleep the morning of her admission. She states that this was a severe pain and continued to worsen throughout the day. She describes this as a tight sensation in the left side of her chest that radiates under her left arm and into her left shoulder. She states it is associated with shortness of breath and diaphoresis. She states this is an 8 out of 10 pain in intensity. The patient was previously scheduled for a left heart cath due to an elevated troponin several months ago at another facility. She then came to our cardiology clinic for follow-up and was still symptomatic and set up for left heart cath. The patient did not have this completed because her car broke down and her mother got really sick so she no showed for her appointments. The patient states that her symptoms have been waxing and waning since then but then significantly worsened a few days ago and especially the morning of her admission. She is still complaining of intermittent chest pain. She states that anytime she tries to exert herself she gets really short of breath and the chest pain occurs. Nothing really helps to improve the pain. It last for several minutes before resolving. She denies any fever, chills, nausea, vomiting, diarrhea, PND or orthopnea. She did rule out for an MO. She does have a renal duplex which is abnormal as well showing right renal artery stenosis but her blood pressure is stable this morning. [facility] Medical History (Updated 08/20/22 @ 10:00 by Luli Mcgowan APRN) Abnormal electrocardiogram [ECG] [EKG] Allergic rhinitis Elevated troponin History of chemotherapy Hx of malignant melanoma Hypertension Leg cramps Renal artery stenosis Right hip pain Unstable angina Unstable angina Vitamin D deficiency Surgical History History of cholecystectomy History of hysterectomy Family History Mother Cancer Diabetes Heart attack Osteoporosis Social History Smoking Status: Never smoker alcohol intake: never substance use type: former substance user current occupational status: unemployed Travel in the last 8 weeks: None household members: other housing: apartment caffeine: Yes Review of Systems Review of Systems Review of systems:: pertinent systems reviewed and negative unless documented below Constitutional Constitutional: Reports system reviewed and no additional complaints, except as documented and Reports lethargy Eyes Eyes: Reports system reviewed and no additional complaints, except as documented ENT Ears, Nose, Mouth, and Throat: Reports system reviewed and no additional complaints, except as documented *Cardiovascular Cardiovascular: Reports system reviewed and no additional complaints, except as documented, Reports as per HPI, Reports chest pain, Reports chest pain at rest, Reports chest pain with activity, Reports diaphoresis, Reports dyspnea, Reports dyspnea on exertion and Reports radiating jaw, neck or arm pain *Respiratory Respiratory: Reports system reviewed and no additional complaints, except as documented, Reports dyspnea and Reports dyspnea on exertion *Gastrointestinal Gastrointestinal: Reports system reviewed and no additional complaints, except as documented *Genitourinary Genitourinary: Reports system reviewed and no additional complaints, except as documented *Musculoskeletal Musculoskeletal: Reports system reviewed and no additional complaints, except as doc
--- NOTE | 2022-08-20 10:45 | PC.NURSE ---
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
--- NOTE | 2022-08-20 16:38 | PC.NURSE ---
Dsg cdi to r wrist post cath. No c/o at this time. BP's have been soft, but stable. notified and NNO's at this time.
--- NOTE | 2022-08-20 23:07 | PC.NURSE ---
Received report from Siddhartha Nunn, RN
--- NOTE | 2022-08-20 23:15 | PC.NURSE ---
Report given to TI Govea
[2022-08-21] VITALS: BP 102/56; PULSE 70; PULSE 71; RESP 16; TEMP 36.9; O2SAT 98
[2022-08-21 04:00] VITALS: BP 99/54; PULSE 60; PULSE 64; RESP 16; TEMP 36.7; O2SAT 96
[2022-08-21 06:04] VITALS: BMI 24.6
--- NOTE | 2022-08-21 06:27 | PC.NURSE ---
pt rested well, pt is alert and oriented x4, no issues or concerns noted at this time, no acute distress, pt complains of chronic back pain and tailbone pain relieved by prescribed oxycodone, VSS, right radial post cath dressing cdi without hematoma or drainage noted.
[2022-08-21 07:24] LABS: Basophils % 0.4 % (0.1-2.0); Eosinophils # 0.2 K/mm3 (0.0-0.4); Eosinophils % 3.5 % (0.1-12.0); Hematocrit 34.5 % (37.0-47.0); Hemoglobin 11.4 g/dL (12.2-16.2); Lymphocytes # 1.7 K/mm3 (0.7-4.5); Lymphocytes % 33.4 % (10-50); Mean Corpuscular HGB Conc 32.9 g/dL (31.8-35.4); Mean Corpuscular Hemoglobin 28.1 pg (27.0-31.2); Mean Corpuscular Volume 85.5 fl (81-99); Mean Platelet Volume 7.6 fl (7.4-10.4); Monocytes # 0.4 K/mm3 (0.1-1.0); Neutrophils # 2.7 K/mm3 (1.8-7.8); Neutrophils % 54.6 % (37.0-80.0); Platelet Count 350 K/mm3 (142-424); Red Blood Count 4.04 M/mm3 (4.20-5.40); Red Cell Distribution Width 14.4 % (11.5-17.5)
[2022-08-21 07:35] LABS: Alanine Aminotransferase 27 U/L (12-78); Albumin Level 3.9 g/dl (3.5-5.0); Albumin/Globulin Ratio 1.3 (1.1-1.8); Alkaline Phosphatase 116 U/L (38-126); Anion Gap 11.1 mEq/L (5-15); Aspartate Amino Transferase 30 U/L (14-36); Blood Urea Nitrogen 14 mg/dl (7-17); Calcium 8.2 mg/dl (8.4-10.2); Carbon Dioxide 30 mmol/L (22.0-30.0); Chloride 104 mmol/L (98-107); Creatinine Clearance Estimated 111 mL/min (50-200); Estimated Glomerular Filt Rate 103 ml/min (>60); GFR (African American) 125 ML/MIN (>60); Globulin 2.9 g/dL (1.3-3.2); Glucose 102 mg/dl (74-100); Potassium 4.1 mmoL/L (3.5-5.1); Sodium 141 mmol/L (136-145); Total Protein,Serum 6.8 g/dl (6.3-8.2)
[2022-08-21 07:38] LABS: Bilirubin,Total < 0.1 mg/dl (0.2-1.3)
[2022-08-21 08:00] VITALS: BP 101/58; PULSE 69; PULSE 70; O2SAT 100
--- NOTE | 2022-08-21 11:21 | EXP.DC.SUM ---
General Admission date:: 08/19/22 Discharge date: 08/21/22 HPI HPI HPI: History and Physical for admission Seen and examined this 57 y.o. female in the ED for admission to the Med/Surg Unit. Upon examination of this patient she appeared to be in no acute distress and nontoxic in nature. This patient presented to the ED with chest pain which awakened her this morning. Patient advised that she was unable to completely relieve the pain. Stated that she had the pain in the past and was scheduled for a heart cath but did not have it done. She also advised that she was told she may need a pacemaker because her heart rate gets down in the 30's. She advises the pain to be constant, sharp and 8/10 but nonradiating. Non-stemi risk score = 97. Evaluation in the ED revealed stable blood pressures, normal troponin and unremarkable EKG. We will place her on the med/surg unit with telemetry monitoring, serial troponins, cardiology consult and continue treatment plan and monitoring. Hospital Course Hospital Course Hospital Course: Ms. Burk is a 57-year-old white female who presented to the emergency department complaints of chest pain.? She was previously seen at [facility] and worked up for chest pain prior to discharge home. At follow-up for cardiology at [facility], she had a normal stress test but still symptomatic with recently elevated troponins. She was set up for a left heart cath but this was never performed due to transportation issues. She presented to the ER with persistent angina, was admitted for cardiology consult and left heart catheterization. See cath report for full details, no clinically significant coronary artery disease noted. Recommend medical management and further work-up for noncardiac etiologies of chest pain. Remained hemodynamically stable during hospitalization. Continued on medications that she was already taking prior to admission. No adjustments to medications. Needs follow-up with her PCP for further monitoring and work-up of noncardiac chest pain. Blood pressure remained stable. Discharged in stable condition. Of note, echocardiogram obtained during hospitalization showing normal EF. Exam Data for Last 24 hours Vital signs and Labs for Last 24 Hours: Temp Pulse Resp BP Pulse Ox 98.0 F 69 16 101/58 L 100 08/21/22 04:00 08/21/22 08:00 08/21/22 04:00 08/21/22 08:00 08/21/22 08:00 Laboratory Results - last 24 hr 08/21/22 07:08: WBC 5.0, RBC 4.04 L, Hgb 11.4 L, Hct 34.5 L, MCV 85.5, MCH 28.1, MCHC 32.9, RDW 14.4, Plt Count 350, MPV 7.6, Neut % (Auto) 54.6, Lymph % (Auto) 33.4, [place] % (Auto) 8.0, Eos % (Auto) 3.5, Baso % (Auto) 0.4, Neut # (Auto) 2.7, Lymph # (Auto) 1.7, [place] # (Auto) 0.4, Eos # (Auto) 0.2, Baso # (Auto) 0.0 08/21/22 07:08: Sodium 141, Potassium 4.1, Chloride 104, Carbon Dioxide 30, Anion Gap 11.1, BUN 14, Creatinine 0.60, Estimated Creat Clear 111, Estimated GFR 103, Est GFR ( Amer) 125, Glucose 102 H, Calcium 8.2 L, Total Bilirubin < 0.1 L, AST 30, ALT 27, Alkaline Phosphatase 116, Total Protein 6.8, Albumin 3.9 D, Globulin 2.9, Albumin/Globulin Ratio 1.3 I & O for Last 24 hours: Intake & Output 08/18/22 08/19/22 08/20/22 08/21/22 23:59 23:59 23:59 23:59 Intake Total 600 / 1080 960 / 960 Output Total 0 / 500 500 / 500 Balance 600 / 580 460 / 460 Weight 68.096 kg 68.521 kg 67.132 kg Constitutional Constitutional: no acute distress *Routine HEENT Exam Head: Present normocephalic Eye: Present EOMI and PERRL ENT: Present mucous membranes moist *Routine Neck Exam Neck: Present supple; Absent lymphadenopathy *Routine Respiratory Exam Respiratory: Present CTA bilaterally *Routine Cardiovascular Exam Cardiovascular: Present RRR *Routine Abdominal Exam Abdominal: Present soft and normoactive bowel sounds; Absent tenderness *Routine Rectal Exam Patient deferred: visual exam *Routine Exam Patient deferred: external exam *Routine Extremi
--- NOTE | 2022-08-22 12:34 | CARE MANAGER ---
Contacted patient and she states she is feeling weak, but doing well. She denies questions or concerns and is aware of follow up appointments. TI Woodard
== END 2022-08-21 12:33 | disposition home or self-care (01) ==
LOC: ER 20:23 → 2ND 21:04
PROVIDERS: Emergency Medicine; Internal Medicine; Admitting Provider Nurse Practitioner Family; Emergency Provider Emergency Medicine; PCP Emergency Medicine; Visit Provider Internal Medicine Adolescent Medicine
DX: R07.9 Chest pain, unspecified (principal); I70.1 Atherosclerosis of renal artery; I25.110 Atherosclerotic heart disease of native coronary artery with unstable angina pectoris; I15.0 Renovascular hypertension; Z79.899 Other long term (current) drug therapy; Z88.8 Allergy status to other drugs, medicaments and biological substances
CPT/HCPCS: 36252; 36415; 71045; 80048; 80053; 80061; 83735; 83880; 84443; 84484; 85025; 93005; 93308; 93458; 99152; 99285; C1725; C1769; C9803; G0378; J1644; Q9967; U0003; U0005

== ENCOUNTER 2022-08-29 00:33 | Emergency (ER) | payer OTHER, SELFPAY ==
[2022-08-29 00:33] VITALS: BP 161/106; PULSE 90; RESP 16; TEMP 36.9; O2SAT 99; BMI 21.9
--- NOTE | 2022-08-29 00:33 | ECG_ITS ---
APPROVED REPORT Exam: Resting ECG HR:92 bpm ECG Measurements Heart Rate 92 AXES SD 138 P 80 QRSd 93 QRS -1 QT 367 T 63 QTc 417 Conclusion SINUS RHYTHM NORMAL ECG UNCONFIRMED REPORT Electronically signed by : Taiwo Yanes MD 08/29/2022 22:04:31
[2022-08-29 00:34] VITALS: BMI 21.9
--- NOTE | 2022-08-29 00:35 | XR_ITS ---
PROCEDURE INFORMATION: Exam: XR Chest Exam date and time: 08/29/2022 1:08 AM Age: 57 years old Clinical indication: Pain; Shortness of breath; Other: Tightness; Prior surgery; Surgery type: Heart cath x1 week; Additional info: Chest pain TECHNIQUE: Imaging protocol: Radiologic exam of the chest. Views: 2 views. COMPARISON: CR XR CHEST PORTABLE 08/19/2022 7:29 PM FINDINGS: Lungs: No acute airspace consolidation. No appreciable pulmonary edema. Pleural spaces: No pleural effusion. No pneumothorax. Heart/Mediastinum: Cardiomediastinal silouhette is within normal limits. Bones/joints: No evidence of acute osseous abnormality. IMPRESSION: No acute findings.
[2022-08-29 00:49] LABS: Basophils # 0.1 K/mm3 (0-0.2); Basophils % 0.7 % (0.1-2.0); Eosinophils # 0.2 K/mm3 (0.0-0.4); Eosinophils % 2.3 % (0.1-12.0); Hematocrit 40.2 % (37.0-47.0); Hemoglobin 13.2 g/dL (12.2-16.2); Lymphocytes % 25.9 % (10-50); Mean Corpuscular HGB Conc 32.8 g/dL (31.8-35.4); Mean Corpuscular Hemoglobin 27.9 pg (27.0-31.2); Mean Platelet Volume 6.9 fl (7.4-10.4); Monocytes # 0.4 K/mm3 (0.1-1.0); Monocytes % 5.3 % (1.7-9.3); Neutrophils # 4.9 K/mm3 (1.8-7.8); Neutrophils % 65.8 % (37.0-80.0); Platelet Count 565 K/mm3 (142-424); Red Blood Count 4.73 M/mm3 (4.20-5.40); Red Cell Distribution Width 14.5 % (11.5-17.5); White Blood Count 7.5 K/mm3 (4.8-10.8)
[2022-08-29 00:54] LABS: Chloride 100 mmol/L (98-107); Sodium 143 mmol/L (136-145)
[2022-08-29 00:55] LABS: Potassium 3.6 mmoL/L (3.5-5.1)
[2022-08-29 00:57] LABS: Alanine Aminotransferase 21 U/L (12-78); Albumin Level 4.8 g/dl (3.5-5.0); Albumin/Globulin Ratio 1.2 (1.1-1.8); Alkaline Phosphatase 153 U/L (38-126); Anion Gap 16.6 mEq/L (5-15); Aspartate Amino Transferase 30 U/L (14-36); Bilirubin,Total 0.4 mg/dl (0.2-1.3); Blood Urea Nitrogen 13 mg/dl (7-17); Calcium 10.1 mg/dl (8.4-10.2); Carbon Dioxide 30 mmol/L (22.0-30.0); Creatinine Clearance Estimated 85 mL/min (50-200); Estimated Glomerular Filt Rate 87 ml/min (>60); GFR (African American) 105 ML/MIN (>60); Globulin 3.9 g/dL (1.3-3.2); Glucose 113 mg/dl (74-100); Total Protein,Serum 8.7 g/dl (6.3-8.2)
--- NOTE | 2022-08-29 01:14 | HMH.EDCP ---
Discharge Plan Disposition Patient Disposition: Home, Self-Care Chief Complaint: Chest Pain Prescriptions Prescriptions: No Action clonazepam 0.5 mg tablet 0.5 mg PO BID PRN (Reason: Anxiety) Qty: 60 0RF oxycodone 5 mg tablet 5 mg PO TID PRN (Reason: pain) Qty: 90 0RF gabapentin 300 mg capsule 300 mg PO TID bisoprolol-hydrochlorothiazide 5-6.25 mg tablet 1 tab PO DAILY aspirin 81 mg Tablet,Delayed Release (Dr/Ec) 81 mg PO DAILY 30 Days Qty: 0 0RF albuterol sulfate 90 mcg/actuation HFA aerosol inhaler 2 inh inhalation Q6H PRN (Reason: shortness of breath or wheezing) Qty: 6.7 0RF Referrals Follow up/Referrals: Kevin Alejandre MD [Primary Care Provider] - See instructions Clinical Impressions Clinical Impression: Atypical chest pain Instructions Patient Instructions: DI for Atypical Chest Pain Discharge ED Provider: Kevin Alejandre Chest Pain HPI General Chief Complaint: Chest Pain Stated Complaint: chest pain Time Seen by Provider: 08/29/22 01:14 Mode of Arrival: Wheelchair Source of Information: Patient and Medical Record Limitations: No Limitations Description of Symptoms (Recalled from ER Triage Doc. by RN): pt states been having episodes of chest pain since yesterday but tonight pt chest pain radiating down lt arm started 3 hrs ago. pt had heart cath last week reports no blockage. History of Present Illness HPI narrative: pt has lt sides chest pain and rt rib pain worse with insp - no fever/rash or trauma complaint: chest pain Onset (ago): hour(s) Duration: intermittent Activity at onset: during rest Pain location: left chest Severity: moderate Quality: sharp Exacerbating factors: inspiration Risk Factors for CAD: Family Hx of CAD Treatments prior to or on arrival for Cardiac Chest Pain: none PARUL Score for Non-Stemi Age of Patient: 50-59 years old Heart Rate: 70-89 bpm Systolic Blood Pressure: 160-199 mmHg Serum Creatinine: 0.40-0.79 mg/dl CHF [place] Class: I-No CHF Other Risk Factors: None Non-Stemi Risk Score: 64 Related Data Prior Cardiac Testing/Procedures: Cardiac Angiogram On Oral Contraceptives: No Home Medications Medication Instructions Recorded Confirmed bisoprolol 5 1 tab PO DAILY Hypertension 10/30/22 10/30/22 mg-hydrochlorothiazide 6.25 mg tablet gabapentin 300 mg capsule 300 mg PO TID Pain 08/19/22 08/19/22 Previous Rx's Medication Instructions Recorded albuterol sulfate 90 mcg/actuation 2 inh inhalation Q6H PRN shortness 07/04/22 aerosol inhaler of breath or wheezing #6.7 grams clonazepam 0.5 mg tablet 0.5 mg PO BID PRN Anxiety #60 tabs 08/09/22 oxycodone 5 mg tablet 5 mg PO TID PRN pain #90 tabs 08/09/22 aspirin 81 mg tablet,delayed 81 mg PO DAILY 30 days #0 tabs 08/21/22 release Allergies Allergy/AdvReac Type Severity Reaction Status Date / Time amoxicillin [From Augmentin] Allergy Intermediate I-RASH Verified 08/19/22 22:21 clavulanic acid Allergy Intermediate I-RASH Verified 08/19/22 22:21 [From Augmentin] Sulfa (Sulfonamide Allergy Intermediate I-RASH Verified 08/19/22 22:21 Antibiotics) sulfadiazine AdvReac Intermediate Vomiting Verified 08/19/22 22:21 ondansetron AdvReac Mild Migraine Verified 08/19/22 22:22 [facility] Medical History (Updated 08/29/22 @ 02:39 by Kevin Alejandre MD) Abnormal electrocardiogram [ECG] [EKG] Allergic rhinitis Elevated troponin History of chemotherapy Hx of malignant melanoma Hypertension Leg cramps Renal artery stenosis Right hip pain Unstable angina Unstable angina Vitamin D deficiency Surgical History History of cholecystectomy History of hysterectomy Family History Mother Cancer Diabetes Heart attack Osteoporosis Social History Smoking Status: Current every day smoker alcoho
--- NOTE | 2022-08-29 01:28 | CT_ITS ---
PROCEDURE INFORMATION: Exam: CTA Chest With Contrast Exam date and time: 08/29/2022 2:43 AM Age: 57 years old Clinical indication: Shortness of breath; Prior surgery; Surgery type: Heart cath x1 week; Additional info: SOA TECHNIQUE: Imaging protocol: Computed tomographic angiography of the chest with contrast. 3D rendering (Not supervised by radiologist): MIP and/or 3D reconstructed images were created by the technologist. Radiation optimization: All CT scans at this facility use at least one of these dose optimization techniques: automated exposure control; mA and/or kV adjustment per patient size (includes targeted exams where dose is matched to clinical indication); or iterative reconstruction. Contrast material: ISOVUE; Contrast volume: 70 ml; Contrast route: INTRAVENOUS (IV); COMPARISON: CT ANGIO CHEST PE PROTOCOL 06/11/2022 7:28 PM FINDINGS: Pulmonary arteries: No evidence of pulmonary emboli. Aorta: No aortic aneurysm. No aortic dissection. Lungs: Slight interval increase in size of noncalcified pulmonary nodules in the right lung apex (axial series 5, image 30) and anterior left upper lobe (series 5, image 51), now measuring 6-7 mm compared with 3-4 mm on 06/11/[address]. A 4 mm pulmonary nodule in the posteromedial right lower lobe (series 5, image 51) previously measured 2 mm on 06/11/2022. Previously demonstrated 3 mm pulmonary nodule in the right upper lobe is unchanged (series 5, image 36). Previously described juxtapleural 4 mm nodule with central cavitation in the lingula is not present on today's exam. Near complete interval resolution of previously demonstrated patchy ground-glass and consolidative airspace opacities seen on prior exam. Two small pneumatoceles in the left lower lobe have also resolved. A small left suprahilar paramediastinal bleb remains unchanged. No acute airspace consolidation. No appreciable pulmonary edema. Pleural spaces: No pneumothorax. No pleural effusion. Heart: No cardiomegaly. No significant pericardial effusion. Lymph nodes: No enlarged lymph nodes by CT criteria. Intraperitoneal space: No emergent findings or suspicious mass lesions in the visualized upper abdomen. Bones/joints: No acute osseous abnormality. Soft tissues: Unremarkable. IMPRESSION: 1. No evidence of pulmonary embolism or other acute cardiopulmonary process. 2. Variable changes in multiple subcentimeter pulmonary nodules compared with 06/11/[address], as described in detail above. 3. Near complete interval resolution of previously demonstrated patchy ground-glass and consolidative airspace opacities seen on prior exam.
[2022-08-29 01:54] LABS: Troponin I < 0.01 ng/ml (0.00-0.034)
--- NOTE | 2022-08-29 02:41 | PC.NURSE ---
verbal order of tylenol 3 take home pack
[2022-08-29 02:44] VITALS: BP 161/106; PULSE 86; RESP 16; TEMP 37.1; O2SAT 99
== END 2022-08-29 02:53 | disposition home or self-care (01) ==
PROVIDERS: Emergency Provider Emergency Medicine; PCP Emergency Medicine
DX: R07.89 Other chest pain (principal); Z79.899 Other long term (current) drug therapy; I10 Essential (primary) hypertension; G25.81 Restless legs syndrome; Z92.21 Personal history of antineoplastic chemotherapy; Z85.820 Personal history of malignant melanoma of skin
CPT/HCPCS: 71046; 71275; 80053; 84484; 85025; 93005; 96374; 99285; Q9967

== ENCOUNTER 2022-09-02 13:50 | Emergency (ER) | payer OTHER, SELFPAY ==
--- NOTE | 2022-09-02 13:44 | ECG_ITS ---
APPROVED REPORT Exam: Resting ECG HR:55 bpm ECG Measurements Heart Rate 55 AXES ID 141 P 67 QRSd 92 QRS -9 QT 305 T 40 QTc 294 Conclusion SINUS BRADYCARDIA INCOMPLETE RIGHT BUNDLE BRANCH BLOCK [90+ ms QRS DURATION, TERMINAL R IN V1/V2, 40+ ms S IN I/aVL/V4/V5/V6] SEPTAL MYOCARDIAL INFARCTION , OF INDETERMINATE AGE [40+ ms Q WAVE IN V1/V2] ABNORMAL ECG UNCONFIRMED REPORT Electronically signed by : Taiwo Yanes MD 09/02/2022 17:12:05
[2022-09-02 13:51] VITALS: BP 117/80; PULSE 60; RESP 20; TEMP 37.1; O2SAT 98; BMI 21.6
[2022-09-02 14:00] VITALS: BP 117/80; PULSE 64; RESP 18; O2SAT 99
[2022-09-02 14:22] LABS: Basophils % 0.3 % (0.1-2.0); Chloride 104 mmol/L (98-107); Eosinophils # 0.1 K/mm3 (0.0-0.4); Hematocrit 35.2 % (37.0-47.0); Hemoglobin 11.6 g/dL (12.2-16.2); Lymphocytes # 1.3 K/mm3 (0.7-4.5); Lymphocytes % 18.7 % (10-50); Mean Corpuscular Hemoglobin 28.1 pg (27.0-31.2); Mean Platelet Volume 7.3 fl (7.4-10.4); Monocytes # 0.4 K/mm3 (0.1-1.0); Monocytes % 5.4 % (1.7-9.3); Neutrophils # 5.2 K/mm3 (1.8-7.8); Neutrophils % 74.6 % (37.0-80.0); Platelet Count 480 K/mm3 (142-424); Red Blood Count 4.14 M/mm3 (4.20-5.40); Red Cell Distribution Width 14.4 % (11.5-17.5); Sodium 143 mmol/L (136-145)
[2022-09-02 14:25] LABS: Alanine Aminotransferase 17 U/L (12-78); Albumin Level 4.2 g/dl (3.5-5.0); Albumin/Globulin Ratio 1.4 (1.1-1.8); Alkaline Phosphatase 126 U/L (38-126); Aspartate Amino Transferase 26 U/L (14-36); Bilirubin,Total 0.4 mg/dl (0.2-1.3); Blood Urea Nitrogen 8 mg/dl (7-17); Carbon Dioxide 30 mmol/L (22.0-30.0); Creatinine Clearance Estimated 117 mL/min (50-200); Estimated Glomerular Filt Rate 128 ml/min (>60); GFR (African American) 154 ML/MIN (>60); Globulin 3.1 g/dL (1.3-3.2); Total Protein,Serum 7.3 g/dl (6.3-8.2)
[2022-09-02 14:26] LABS: Calcium 9.3 mg/dl (8.4-10.2); Glucose 109 mg/dl (74-100)
[2022-09-02 14:31] VITALS: BP 149/86; PULSE 60; RESP 18; O2SAT 99
--- NOTE | 2022-09-02 14:34 | HMH.EDGENADL ---
Discharge Plan Disposition Patient Disposition: Home, Self-Care Condition: Good Prescriptions Prescriptions: No Action clonazepam 0.5 mg tablet 0.5 mg PO BID PRN (Reason: Anxiety) Qty: 60 0RF oxycodone 5 mg tablet 5 mg PO TID PRN (Reason: pain) Qty: 90 0RF gabapentin 300 mg capsule 300 mg PO TID bisoprolol-hydrochlorothiazide 5-6.25 mg tablet 1 tab PO DAILY aspirin 81 mg Tablet,Delayed Release (Dr/Ec) 81 mg PO DAILY 30 Days Qty: 0 0RF albuterol sulfate 90 mcg/actuation HFA aerosol inhaler 2 inh inhalation Q6H PRN (Reason: shortness of breath or wheezing) Qty: 6.7 0RF Referrals Follow up/Referrals: Provider,Referral, MD [Primary Care Provider] - See instructions Activity Restrictions/Add. Instructions Additional Instructions/Restrictions: You were evaluated in the emergency department today for chest pain. Please follow-up with your primary care provider over the next 48 hours. Return to the emergency department for any new or worsening symptoms. Continue taking your pain medication at home as prescribed. Clinical Impressions Clinical Impression: Chest pain Qualifiers: Chest pain type: unspecified Qualified Code(s): R07.9 - Chest pain, unspecified Instructions Patient Instructions: DI for Atypical Chest Pain Discharge ED Provider: Florence Caldwell General Adult HPI General Chief complaint: Chest Pain Stated complaint: chest pain Time Seen by Provider: 09/02/22 13:52 Mode of Arrival: EMS Source of Information: Patient Limitations: No Limitations Description of Symptoms (Recalled from ER Triage Doc. by RN): Patient comes to the ER with chest pain that is 8/10 states it worsens with activity and rest helps with it. PT states that she had a heart cath at [facility] within the past 1.5 weeks. states that she was also seen at [facility] 3 times since then. states that during one of these three visits she was diagnosed with lung nodules that have dangly things on them . States that she is to follow up with PET scan and other tests at once scheduled, because that is where her oncologist is located. 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 History of Present Illness HPI narrative: This patient is a 57-year-old female with a history of chronic chest pain and breast cancer presented to the emergency department for evaluation of chest pain. She states that it is an 8 out of 10 and worsens with activity. It does not seem to worsen with any certain position. Pain medicine shots make it better, however nothing at home is able to alleviate it. She has been seen at [facility] 3 times for similar symptoms, she states that she was diagnosed with lung nodules for which she is supposed to have an outpatient PET scan. She states that otherwise, they sent her home. Nothing has changed with her chest pain. She states that it does make her feel short of breath on exertion. She describes it as sharp, stabbing, and in the left side of the chest radiating down the left arm and upper left neck. She had a heart cath 1.5 weeks ago that was normal. Related Data Home Medications Medication Instructions Recorded Confirmed bisoprolol 5 1 tab PO DAILY Hypertension 08/19/22 08/19/22 mg-hydrochlorothiazide 6.25 mg tablet gabapentin 300 mg capsule 300 mg PO TID Pain 08/19/22 08/19/22 Previous Rx's Medication Instructions Recorded albuterol sulfate 90 mcg/actuation 2 inh inhalation Q6H PRN shortness 07/04/22 aerosol inhaler of breath or wheezing #6.7 grams clonazepam 0.5 mg tablet 0.5 mg PO BID PRN Anxiety #60 tabs 08/09/22 oxycodone 5 mg tablet 5 mg PO TID PRN pain #90 tabs 08/09/22 aspirin 81 mg tablet,delayed 81 mg PO DAILY 30 days #0 tabs 08/21/22 release Allergies Allergy/AdvReac Type Severity Reaction Status Date / Time amoxicillin [From Augmentin] Allergy Intermediate I-RASH Verified 08/19/22 22:21 clavulanic acid Allergy Intermediate I-RASH Verified 08/19/22 22:21
[2022-09-02 14:41] LABS: Troponin I < 0.01 ng/ml (0.00-0.034)
[2022-09-02 14:58] LABS: C-Reactive Protein 5.2 mg/L (0-4)
[2022-09-02 15:00] VITALS: BP 132/88; PULSE 60; RESP 18; O2SAT 99
[2022-09-02 15:09] LABS: Erythrocyte Sedimentation Rate 80 mm/hr (0-30)
--- NOTE | 2022-09-02 15:32 | XR_ITS ---
PROCEDURE INFORMATION: Exam: XR Chest Exam date and time: 09/02/2022 3:34 PM Age: 57 years old Clinical indication: Other: Generalized; Patient HX: Chest pain for 1.5 weeks. TECHNIQUE: Imaging protocol: Radiologic exam of the chest. Views: 2 views. COMPARISON: CR XR CHEST 2V 08/29/2022 1:08 AM FINDINGS: Lungs: Unremarkable. No consolidation. Pleural spaces: Unremarkable. No pleural effusion. No pneumothorax. Heart/Mediastinum: Unremarkable. No cardiomegaly. Bones/joints: Unremarkable. IMPRESSION: No acute findings.
--- NOTE | 2022-09-02 15:34 | PC.NURSE ---
PT STATES SHE HAD ALREADY TAKEN TYLENOL PRIOR TO COMING HERE
--- NOTE | 2022-09-02 15:40 | PC.NURSE ---
PT GOING OVER FOR CXR
[2022-09-02 16:00] VITALS: BP 120/80; PULSE 62; RESP 18; O2SAT 99
[2022-09-02 16:55] VITALS: BP 134/80; PULSE 64; RESP 20; TEMP 36.7; O2SAT 99
== END 2022-09-02 16:55 | disposition home or self-care (01) ==
PROVIDERS: Emergency Provider Emergency Medicine
DX: R07.9 Chest pain, unspecified (principal); C80.1 Malignant (primary) neoplasm, unspecified; Z92.21 Personal history of antineoplastic chemotherapy; Z85.820 Personal history of malignant melanoma of skin; Z79.899 Other long term (current) drug therapy; Z88.1 Allergy status to other antibiotic agents; Z88.2 Allergy status to sulfonamides; Z88.8 Allergy status to other drugs, medicaments and biological substances; I10 Essential (primary) hypertension; G25.81 Restless legs syndrome
CPT/HCPCS: 71046; 80053; 84484; 85025; 85651; 86140; 93005; 96365; 96367; 99284

== ENCOUNTER → 2022-09-05 14:38 | Outpatient (CLI) | payer OTHER, SELFPAY ==
[2022-09-05 14:41] LABS: Anion Gap 17.5 mEq/L (5-15); Blood Urea Nitrogen 14 mg/dl (7-17); Carbon Dioxide 29 mmol/L (22.0-30.0); Chloride 103 mmol/L (98-107); Estimated Glomerular Filt Rate 87 ml/min (>60); GFR (African American) 105 ML/MIN (>60); Glucose 106 mg/dl (74-100); Potassium 3.5 mmoL/L (3.5-5.1); Sodium 146 mmol/L (136-145)
[2022-09-05 14:45] LABS: Amphetamine/Metha Screen,Urine Negative ng/ml (<1000)
[2022-09-05 14:47] LABS: Cannabinoid Screen,Urine Negative ng/ml (<50)
[2022-09-05 14:48] LABS: Barbiturates Screen,Urine Negative ng/ml (<200); Benzodiazepines Screen,Urine Negative ng/ml (<200)
[2022-09-05 14:49] LABS: Cocaine Screen,Urine Negative ng/ml (<300)
[2022-09-05 14:50] LABS: Methadone Screen,Urine Negative ng/ml (<300); Opiate Screen,Urine Negative ng/ml (<300)
[2022-09-05 14:51] LABS: Phencyclidine Screen,Urine Negative ng/ml (<25)
== END ==
PROVIDERS: PCP Emergency Medicine; Visit Provider Emergency Medicine
DX: E87.6 Hypokalemia (principal); R82.90 Unspecified abnormal findings in urine; Z79.899 Other long term (current) drug therapy
CPT/HCPCS: 80048; 80305; 87086